=== PATIENT | female | born 2000 | race Caucasian/White ===

== ENCOUNTER 2020-01-14 10:00 | Outpatient (RCR) | payer OTHER, SELFPAY ==
--- NOTE | 2019-11-19 10:44 | PTOPEVAL ---
INITIAL PHYSICAL THERAPY EVALUATION and PLAN OF CARE Thank you for referring Deb Herbert to [facility].? Deb is scheduled to be seen for physical therapy? 2x/week for 4 weeks. Please review, sign, date and return this plan of care HALLEY. I agree with and certify that the following plan of care is medically necessary. Referring Physician Date Admitting Provider: Attending Provider: PHYSICIAN NOT ON STAFF Referring Provider: *PT Outpatient Evaluation Start: 11/19/19 09:12 Freq: Status: Active Protocol: Document 11/19/19 09:05 ERNIE (Rec: 11/19/19 10:44 ERNIE [email or web address]) Therapy Assessment Status Assessment Status Assessment Status Evaluation Outpatient Past Medical History Past Medical History No Past Medical/Surgical History Patient/Family Denies Significant Past Medical/ Surgical History Source of Past Medical History Patient Evaluation Information Problem Diagnosis pelvic pain, myofascial tenderness on exam Onset 1.5 - 2 yrs ago Subjective Information was on Depo shot for Query Text:As Reported By Patient/ control x 2 years, then when Family insurance didn't cover Depo shot - began to have discomfort which has continued . Previously - had a 4 year relationship - no discomfort, then when had a new partner - began to have pain. No difference in size of penis with partners. 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 Home , depo Meds Must Be Re-entered With Each Visit. Comments Additional Prior Level of Function recreation - sing, spend time Comments with nature Pain Assessment Timing of Pain Assessment Timing of Pain Assessment Assessment Pain Scale Pain S
--- NOTE | 2019-11-24 10:44 | PCPTNOTE ---
Pt. no show no call. Called Summer, she was very apologetic that she forgot. Reminded pt of appointment on Nov 30 at 9:45.
--- NOTE | 2019-12-08 16:11 | PCPTNOTE ---
late note for 12/01/19 pt was billed for but not documented for e-stim premod setting x 20 minutes in supine 2 pads to bilateral lower abdomen with HP and physio quieting tape. Decreased pain afterward.
--- NOTE | 2019-12-17 16:34 | PTOPEVAL ---
PHYSICAL THERAPY RE-EVALUATION and UPDATED PLAN OF CARE Thank you for referring Deb Herbert to [facility].? Deb is scheduled to be seen for physical therapy? 2x/week for 4 weeks. Please review, sign, date and return this plan of care HALLEY. I agree with and certify that the following plan of care is medically necessary. Referring Physician Date Admitting Provider: Attending Provider: PHYSICIAN NOT ON STAFF Referring Provider: *PT Outpatient Evaluation Start: 11/19/19 09:12 Freq: Status: Active Protocol: Document 12/17/19 11:09 ERNIE (Rec: 12/17/19 11:56 ERNIE [id number]) Therapy Assessment Status Assessment Status Assessment Status Re-evaluation Outpatient Past Medical History Past Medical History No Past Medical/Surgical History Patient/Family Denies Significant Past Medical/ Surgical History Source of Past Medical History Patient Evaluation Information Problem Subjective Information Deb reports that her Query Text:As Reported By Patient/ discomfort isn't that bad Family today. She states that using a tampon is still as painful - both insertion and penetration . She does feel that she is 30% improved. Pain Assessment Timing of Pain Assessment Timing of Pain Assessment Assessment Pain Scale Pain Scale Used Numeric (1 - 10) Self Report Pain Assessment Lower Pelvis Reported Pain Level 2 Lowest Pain Intensity 2 Greatest Pain Intensity 7 Pain Score Pain Score 2: Self Report Cervical and Lumbar ROM Lumbar ROM Lumbar ROM WNL Normal Lumbar Segmental Motion Yes Lumbar Comments symmetrical SIJ mobility Pelvic Health Evaluation Pelvic Floor Assessment Permission Received for External/ Yes Internal Perineal Exam Internal Perineal Body Palpation still some tenderness at introitus at 6 o'clock position. Tenderness present with levator ani - greatest on L side at 4-5 o'clock position. Increase in tenderness still present but greatly reduced on the L side, no increase in tissue tension R side. Sustained Levator Ani Strength 5/5 Pelvic Health Therapy Pelvic Health Manual Therapy Permission Received for External/ Yes Internal Perineal Exam Area of Focus lower abdominal. pevlic floor - internal and external Patient Position(s)
--- NOTE | 2020-01-14 10:56 | PTOPEVAL ---
PHYSICAL THERAPY DISCHARGE SUMMARY Thank you for referring Deb Herbert to [facility].? Deb was seen for 15 visits in PT for treatment of pelvic floor discomfort. She has met goals set with exception of outcome measures scores. Unsure why the scores were high when Deb reports no pelvic pain, able to insert and place tampon without discomfort, and able to perform work and household activities without pain. Her soft tissue tension has greatly decreased and not tender to palpation. She is at end point with PT at this time. I agree with Deb's discharge from PT. Referring Physician Date Admitting Provider: Attending Provider: PHYSICIAN NOT ON STAFF Referring Provider: *PT Outpatient Evaluation Start: 11/19/19 09:12 Freq: Status: Active Protocol: Document 01/14/20 10:11 ERNIE (Rec: 01/14/20 10:55 ERNIE [email or web address]) Therapy Assessment Status Assessment Status Assessment Status Discharge Evaluation Information Problem Subjective Information Deb stating that she is Query Text:As Reported By Patient/ feeling good - not having any Family pain. Did put a tampon in this morning - no pain with insertion or with fully pushing it up. Pain Assessment Timing of Pain Assessment Timing of Pain Assessment Assessment Pain Scale Pain Scale Used Numeric (1 - 10) Self Report Pain Assessment Lower Pelvis Reported Pain Level 0 Lowest Pain Intensity 0 Greatest Pain Intensity 0 Pain Score Pain Score 0: Self Report Pelvic Health Evaluation Pelvic Floor Assessment Permission Received for External/ Yes Internal Perineal Exam Internal Perineal Body Palpation no tenderness - good soft tissue mobility throughtout Additional Comments symmetrical pelvic, sacral, SIJ alignment and mobility, no increase in tissue tension through LE's or pelvic diaphragm externally. Pelvic Health Therapy Pelvic Health Manual Therapy Location levator ani, obturator internus Area of Focus pevlic floor - internal and external. Treatment Stillpoint at ankles, pelvic floor diaphragm release.. internally - mild soft tissue stretching done - no tenderness present Response to Treatment Increased Soft Tissue Mobility Endurance Excellent PT Clinical Summary Clinical Summary Protocol: PTEVCODE PT Clinical Summary Vulvar Pain Functional
== END 2020-01-15 12:26 | disposition home or self-care (01) ==
LOC: ANHPT 10:00
PROVIDERS: PCP Pediatrics
DX: R10.2 Pelvic and perineal pain (principal); M79.18 Myalgia, other site
CPT/HCPCS: 97014; 97140; 97162; G0283

== ENCOUNTER 2020-09-25 10:38 | Emergency (ER) | payer OTHER, SELFPAY ==
[2020-09-25 10:52] VITALS: BP 111/70; PULSE 83; RESP 16; TEMP 36.7; O2SAT 100
--- NOTE | 2020-09-25 10:53 | ED.SKABFB ---
HPI - Skin/Abscess/Foreign Bdy General Chief complaint: Skin/Abscess/Foreign Body Stated complaint: poison katy Source: patient and RN notes reviewed Limitations: no limitations History of Present Illness HPI narrative: The patient, previously mostly healthy, presents with skin eruption. Patient states she does yard and gardening work and has noticed for the last half week since Saturday, the onset of pink, raised eruption on her extremities especially the knees and hands. Symptoms are mild, worse with scratching; unrelieved with OTC preparations like calamine. No fever, streaking, discharge Related Data Home Medications Medication Instructions Recorded Confirmed Otc Vitamins 09/25/20 Allergies Allergy/AdvReac Type Severity Reaction Status Date / Time No Known Allergies Allergy Verified 09/25/20 10:56 Review of Systems Review of Systems: Narrative: General/Constitutional: No weight loss,fever Eyes: N0: Redness,discharge Ears/Nose/Throat: No: Epistaxis,ear discharge Respiratory: Denies: Hemoptysis Gastrointestinal: No Vomiting, Bleeding-rectal Skin: No Lumps, REPORTS eruption Neurologic: No Focal Weakness,Sz Hematologic: Denies: Petechiae/Purpura Psychiatric: No: Suicida ideationl All Other Systems: Reviewed and Negative PMFSH Social History Social History Smoking status: Never smoker Alcohol intake: never Comments At time of signature, agree with nursing past medical, surgical, social and family history. There is no relevant family history pertinent to the presenting complaint Exam Narrative: Exam Narrative: General Appearance: Well nourished, Normocephalic, Conjunctiva clear Ear: External ear normal Nose: Normal nose, Nare clear Mouth/Throat: Normal appearing, Supple Respiratory: Airway patent, No respiratory distress Musculoskeletal: Moves all extremities, Non tender Spine/Back: Normal ROM Skin: Warm, Dry classic maculo-papular & papulovesicular eruption, on extremities especially knees and hands Neurological: A&O x3, Normal affect Course Vital Signs Vital signs: Vital Signs Temperature 98.1 F 09/25/20 10:52 Pulse Rate 83 09/25/20 10:52 Respiratory Rate 09/25/20 10:52 Blood Pressure 111/70 09/25/20 10:52 Pulse Oximetry 100 09/25/20 10:52 Temperature 98.1 F 09/25/20 10:52 Pulse Rate 83 09/25/20 10:52 Respiratory Rate 16 09/25/20 10:52 Blood Pressure 111/70 09/25/20 10:52 Pulse Oximetry 100 09/25/20 10:52 Discharge Plan Discharge Clinical Impression: Contact dermatitis Qualifiers: Contact dermatitis type: irritant Contact dermatitis trigger: non-food plants Qualified Code(s): L24.7 - Irritant contact dermatitis due to plants, except food Patient Disposition: Home, Self-Care Condition: Stable Instructions: Poison Katy (ED) Prescriptions: New prednisone 20 mg tablet 60 mg PO DAILY Qty: 9 RF: 0 methylprednisolone [Medrol (Trent)] 4 mg tablets,dose pack See Rx Instructions .ROUTE .COMPLEX Qty: 21 RF: 0 No Action Otc Vitamins RF: 0 Follow-up/Referrals: UNKNOWN,DOCTOR [Primary Care Provider] - Stand Alone Forms: Work/School Release IP
== END 2020-09-25 11:03 | disposition home or self-care (01) ==
PROVIDERS: Emergency Provider Emergency Medicine
DX: L24.7 Irritant contact dermatitis due to plants, except food (principal); N80.9 Endometriosis, unspecified
CPT/HCPCS: 99213; G0463

== ENCOUNTER 2021-10-10 16:23 | Outpatient (CLI) | payer OTHER, MEDICAID, SELFPAY ==
[2021-10-10 17:20] LABS: Basophils Percent Auto 0.2 % (0.2-1.2); Eosinophils Absolute Auto 0.1 K/mm3 (0-0.3); Eosinophils Percent Auto 0.9 % (0-4.4); Hematocrit 35.7 % (37.0-47.0); Hemoglobin 12.4 g/dL (12.0-15.0); Immature Granulocyte Absolute 0.03 K/mm3 (0.00-0.031); Immature Granulocyte Percent A 0.3 % (0-0.5); Lymphocytes Absolute Auto 1.16 K/mm3 (0.9-3.2); Lymphocytes Percent Auto 11.8 % (18.3-44.2); Mean Corpuscular HGB Conc 34.7 g/dl (32-36); Mean Corpuscular Volume 92.2 fl (80-100); Mean Platelet Volume 10.6 fl (7.4-10.4); Monocytes Absolute Auto 0.7 K/mm3 (0.1-0.6); Monocytes Percent Auto 7.1 % (2.6-8.5); Neutrophils Absolute Auto 7.9 K/mm3 (1.3-6.7); Neutrophils Percent Auto 79.7 % (45.5-73.1); Platelet Count Result 187 k/mm3 (150-375); Red Blood Count 3.87 M/mm3 (4.2-5.4); Red Cell Distribution Width 12.3 % (11.5-14.5); White Blood Count 9.9 K/mm3 (4.5-10.0)
[2021-10-10 18:05] LABS: HIV 1/2 Ab P24 Ag Result Negative (Negative)
[2021-10-10 18:35] LABS: Hepatitis B Surface Antigen Negative (Negative)
[2021-10-11 09:22] LABS: Rapid Plasma Reagin Non-Reactive (NonReactive)
[2021-10-15 19:34] LABS: CMV IgG Antibody <0.60 U/mL (<0.60)
[2021-10-20 17:48] LABS: SMA 2.0 RISK VARIANT NOT DETECTED
[2021-10-25 18:17] LABS: CF Result NEGATIVE (NEGATIVE); Ethnicity NG
[2021-10-26 14:30] LABS: SMA Results Received Yes
== END 2021-10-10 16:24 | disposition home or self-care (01) ==
LOC: ANHLAB 16:25
PROVIDERS: Visit Provider Obstetrics & Gynecology
DX: N94.89 Other specified conditions associated with female genital organs and menstrual cycle (principal); N91.2 Amenorrhea, unspecified
CPT/HCPCS: 36415; 81220; 81329; 84702; 85025; 86592; 86644; 86703; 86747; 86787; 86900; 86901; 87086; 87088; 87147; 87340; G0432

== ENCOUNTER 2022-01-17 16:04 | Outpatient (CLI) | payer OTHER, MEDICAID, SELFPAY ==
[2022-01-17 16:24] VITALS: BP 125/74; PULSE 68
[2022-01-17 16:31] VITALS: BP 120/67; PULSE 66
[2022-01-17 16:46] LABS: Basophils Percent Auto 0.4 % (0.2-1.2); Eosinophils Absolute Auto 0.1 K/mm3 (0-0.3); Eosinophils Percent Auto 0.6 % (0-4.4); Hematocrit 35.3 % (37.0-47.0); Hemoglobin 11.8 g/dL (12.0-15.0); Immature Granulocyte Absolute 0.11 K/mm3 (0.00-0.031); Lymphocytes Absolute Auto 1.51 K/mm3 (0.9-3.2); Lymphocytes Percent Auto 14.3 % (18.3-44.2); Mean Corpuscular HGB Conc 33.4 g/dl (32-36); Mean Corpuscular Hemoglobin 32.2 pg (26-34); Mean Corpuscular Volume 96.2 fl (80-100); Mean Platelet Volume 9.8 fl (7.4-10.4); Monocytes Absolute Auto 0.6 K/mm3 (0.1-0.6); Monocytes Percent Auto 6.1 % (2.6-8.5); Neutrophils Absolute Auto 8.2 K/mm3 (1.3-6.7); Neutrophils Percent Auto 77.6 % (45.5-73.1); Platelet Count Result 170 k/mm3 (150-375); Red Blood Count 3.67 M/mm3 (4.2-5.4); Red Cell Distribution Width 12.4 % (11.5-14.5); White Blood Count 10.6 K/mm3 (4.5-10.0)
[2022-01-17 17:00] LABS: Alanine Aminotransferase 22 U/L (6-35); Albumin Level 3.6 g/dL (3.5-5.1); Alkaline Phosphatase 51 U/L (38-126); Anion Gap 9 mmol/L (8-16); Aspartate Amino Transferase 20 U/L (14-36); Bilirubin,Total 0.4 mg/dL (0.2-1.3); Blood Urea Nitrogen 9 mg/dL (7-17); Calcium 8.2 mg/dL (8.4-10.2); Carbon Dioxide 25 mmol/L (22-30); Chloride 101 mmol/L (98-107); Creatinine Urine 77.4 mg/dL; Estimated Glomerular Filt Rate > 60; Glucose 85 mg/dL (65-110); Potassium 3.8 mmol/L (3.4-5.0); Sodium 135 mmol/L (137-145); Total Protein Urine Random 8 mg/dL
[2022-01-17] MEDS: ONDANSETRON HCL ODT 4 MG TABLET PO (17:04)
[2022-01-17 17:07] LABS: Add Urine Microscopic? YES; Appearance Urine Cloudy (Clear); Bacteria Urine Trace /hpf; Bilirubin Urine Negative (Negative); Blood Urine Negative (Negative); Color Urine Yellow (Yellow); Glucose Urine UA Negative (Negative); Ketones Urine 1+ mg/dL (Negative); Leukocyte Esterase Ur Negative LEU/UL (NEGATIVE); Mucus Urine Rare /lpf; Nitrate Urine Negative (Negative); Protein Urine Negative (Negative); RBC Urine 0-2 /hpf (0-2); Specific Grav Ur 1.016 (1.001-1.035); Squamous Epithelial Cell Urine Few /hpf (Few); Urobilinogen Urine Negative mg/dL (<2.0); WBC Urine 0-3 /hpf (0-3)
[2022-01-17] MEDS: ACETAMINOPHEN 325 MG TABLET 650 MG PO (17:29)
[2022-01-17 17:39] VITALS: BP 125/74; PULSE 75
== END 2022-01-17 17:40 | disposition home or self-care (01) ==
LOC: ANHOBOP 16:11 → ANHOBPP 16:12
PROVIDERS: Visit Provider Obstetrics & Gynecology
DX: Z34.90 Encounter for supervision of normal pregnancy, unspecified, unspecified trimester (principal); R51.9 Headache, unspecified; R11.0 Nausea; Z3A.00 Weeks of gestation of pregnancy not specified
CPT/HCPCS: 36415; 59025; 80053; 81001; 82570; 84156; 84550; 85025; 87086; 99199; A9270

== ENCOUNTER 2022-02-01 12:06 | Outpatient (CLI) | payer OTHER, MEDICAID, SELFPAY ==
[2022-02-01 14:04] LABS: Basophils Percent Auto 0.3 % (0.2-1.2); Eosinophils Absolute Auto 0.1 K/mm3 (0-0.3); Eosinophils Percent Auto 0.9 % (0-4.4); Hematocrit 34.3 % (37.0-47.0); Hemoglobin 11.7 g/dL (12.0-15.0); Immature Granulocyte Absolute 0.09 K/mm3 (0.00-0.031); Lymphocytes Absolute Auto 1.82 K/mm3 (0.9-3.2); Lymphocytes Percent Auto 20.3 % (18.3-44.2); Mean Corpuscular HGB Conc 34.1 g/dl (32-36); Mean Corpuscular Hemoglobin 31.7 pg (26-34); Monocytes Absolute Auto 0.6 K/mm3 (0.1-0.6); Monocytes Percent Auto 6.6 % (2.6-8.5); Neutrophils Absolute Auto 6.3 K/mm3 (1.3-6.7); Neutrophils Percent Auto 70.9 % (45.5-73.1); Platelet Count Result 174 k/mm3 (150-375); Red Blood Count 3.69 M/mm3 (4.2-5.4); Red Cell Distribution Width 12.7 % (11.5-14.5)
[2022-02-01 14:12] LABS: Glucose 1 Hour PP 50gm Dose 102 mg/dL
[2022-02-01 14:54] LABS: HIV 1/2 Ab P24 Ag Result Negative (Negative)
== END 2022-02-01 12:07 | disposition home or self-care (01) ==
LOC: ANHLAB 12:12
PROVIDERS: Visit Provider Obstetrics & Gynecology
DX: Z34.90 Encounter for supervision of normal pregnancy, unspecified, unspecified trimester (principal); Z3A.00 Weeks of gestation of pregnancy not specified
CPT/HCPCS: 36415; 82947; 85025; 86703; G0432

== ENCOUNTER 2022-03-30 19:16 | Outpatient (CLI) | payer OTHER, SELFPAY ==
--- NOTE | ~2022-03-30 | US_ITS ---
EXAMINATION: US OB limited w BPP DATE: 03/30/2022 20:57 EVENT REPRESENTATIVE INDICATION: Decreased movements TECHNIQUE: Real-time transabdominal obstetric ultrasound. FINDINGS: No prior studies for comparison. There is a single living fetus in vertex presentation. The placenta is anterior without placenta pre via. cardiac activity and movement is noted with a heart rate of 129 beats per minute. A FI is normal measuring 13.7 cm. Biophysical profile: breathin of 2 movement: 2 of 2 tone: 2 of 2 Amniotic flud pocket: 2 of 2 Total score: 8 of 8 IMPRESSION: 1. Single living intrauterine in vertex presentation. 2: Total biophysical profile score of 8/8. 3: Normal GISELL measures 13.7 cm. Reviewed, dictated and finalized at location A. T REPRESENTATIVE
[2022-03-30 19:26] VITALS: PULSE 98; O2SAT 98
[2022-03-30 19:30] VITALS: BP 126/64; PULSE 87
--- NOTE | 2022-03-30 19:51 | PM.OBTRLD ---
OB - Triage/Final Diagnosis Visit Information Date of evaluation: 03/30/22 Reason for evaluation: decreased movement Comments/Additional reasons for admission: I have assessed the risk for this patient, Deb Herbert, and determined that she would benefit from observation care. Evaluation Vital signs: Vital Signs - 24 hr 03/30/22 19:26 03/30/22 19:30 Pulse Rate 87 Blood Pressure 126/64 Pulse Oximetry 98
== END 2022-03-30 21:00 | disposition home or self-care (01) ==
LOC: ANHOBOP 19:21 → ANHLDR 19:21
PROVIDERS: Visit Provider Obstetrics & Gynecology
DX: O36.8190 Decreased fetal movements, unspecified trimester, not applicable or unspecified (principal); Z3A.00 Weeks of gestation of pregnancy not specified
CPT/HCPCS: 76815; 76819; 99199

== ENCOUNTER 2022-04-04 17:04 | Inpatient (IN) | payer BC, OTHER, SELFPAY ==
[2022-04-04] VITALS (14 sets, daily range): BP systolic 84–126; BP diastolic 40–84; PULSE 72–153; BMI 39.1
--- NOTE | 2022-04-04 17:24 | LDADM ---
This patient, Deb Herbert, was admitted to Labor/Delivery/Recovery 109 on 04/04/22 at 17:04. Plans for labor, pain management and were discussed with patient. Patient/family oriented to hospital policies and general routines including ID bracelet, bed and alarms, visiting hours, pain management, procedures, bathroom and other care routines, personal items, smoking policy, room service/diet and guest tray routines, security routines, and visiting hours. Patient/Family are encouraged to report perceived risks to care and to ask questions if they do not understand what they are told or what they should do. See OBIX for further documentation.
[2022-04-04] MEDS: DINOPROSTONE 10 MG VAG INSERT VAGINAL (17:41)
[2022-04-04 18:02] LABS: Basophils Percent Auto 0.4 % (0.2-1.2); Eosinophils Absolute Auto 0.1 K/mm3 (0-0.3); Eosinophils Percent Auto 0.6 % (0-4.4); Hematocrit 36.7 % (37.0-47.0); Hemoglobin 12.6 g/dL (12.0-15.0); Immature Granulocyte Absolute 0.13 K/mm3 (0.00-0.031); Immature Granulocyte Percent A 1.2 % (0-0.5); Lymphocytes Absolute Auto 1.85 K/mm3 (0.9-3.2); Lymphocytes Percent Auto 16.9 % (18.3-44.2); Mean Corpuscular HGB Conc 34.3 g/dl (32-36); Mean Corpuscular Hemoglobin 30.7 pg (26-34); Mean Corpuscular Volume 89.5 fl (80-100); Mean Platelet Volume 10.1 fl (7.4-10.4); Monocytes Absolute Auto 0.9 K/mm3 (0.1-0.6); Monocytes Percent Auto 7.8 % (2.6-8.5); Neutrophils Percent Auto 73.1 % (45.5-73.1); Platelet Count Result 213 k/mm3 (150-375); Red Cell Distribution Width 12.8 % (11.5-14.5); White Blood Count 10.9 K/mm3 (4.5-10.0)
--- NOTE | 2022-04-04 18:12 | WPDANESEPP ---
Anes - Eval Pre Procedure Procedure: Labor epidural Date/Time: 04/04/22 18:12 Pre Op Diagnosis: iol Patient Data Age: 21 Gender: F Height: 1.57 m Weight: 97 kg Last Vital Signs Pulse 84 04/04/22 18:00 BP 108/58 L 04/04/22 18:00 O2 Del Method Room Air 04/04/22 17:23 Allergies Allergy/AdvReac Type Severity Reaction Status Date / Time poison preethi extract Allergy Hives Verified 04/04/22 08:08 Home Medications Medication Instructions Recorded Confirmed Type vitamins-iron fumarate 65 1 tablet PO DAILY 09/05/21 04/04/22 History mg iron-folic acid 1 mg tablet hydrocortisone 2.5 % topical cream 1 applic RECTAL DAILY PRN 11/09/21 04/04/22 Rx with perineal applicator hemorrhoids #30 grams (Anusol-HC) hydroxyzine pamoate 50 mg capsule 100 mg PO TID PRN anxiety #90 caps 03/28/22 04/04/22 Rx (Vistaril) Laboratory Tests 04/04/22 04/04/22 04/04/22 17:16 17:16 17:16 WBC 10.9 K/mm3 H K/mm3 (4.5-10.0) RBC 4.10 M/mm3 L M/mm3 (4.2-5.4) Hgb 12.6 g/dL g/dL (12.0-15.0) Hct 36.7 % L % (37.0-47.0) MCV 89.5 fl fl (80-100) MCH 30.7 pg pg (26-34) MCHC 34.3 g/dl g/dl (32-36) RDW 12.8 % % (11.5-14.5) Plt Count 213 k/mm3 k/mm3 (150-375) MPV 10.1 fl fl (7.4-10.4) Immature Gran % (Auto) 1.2 % H % (0-0.5) Neut % (Auto) 73.1 % % (45.5-73.1) Lymph % (Auto) 16.9 % L % (18.3-44.2) [place] % (Auto) 7.8 % % (2.6-8.5) Eos % (Auto) 0.6 % % (0-4.4) Baso % (Auto) 0.4 % % (0.2-1.2) Lymph # (Auto) 1.85 K/mm3 K/mm3 (0.9-3.2) [place] # (Auto) 0.9 K/mm3 H K/mm3 (0.1-0.6) Eos # (Auto) 0.1 K/mm3 K/mm3 (0-0.3) Baso # (Auto) 0.0 K/mm3 K/mm3 (0.0-0.1) Abs Immat Gran (auto) 0.13 K/mm3 H K/mm3 (0.00-0.031) Absolute Neuts (auto) 8.0 K/mm3 H K/mm3 (1.3-6.7) Absolute Nucleated RBC 0.0 K/mm3 K/mm3 (0.0-0.012) Nucleated RBC % 0.0 % % (0.0-0.2) RPR Pending Rubella IgG Antibody Pending Patient hx anesthesia problems: none Family hx anesthesia problems: none Results Review: All pre-operative results and documents have been reviewed as part of the pre-operative evaluation. [facility] Past Medical History Medical History Anxiety Chlamydia (12/17/16) Encounter for screening examination for sexually transmitted disease Frequent headaches Hypoglycemia Pre-eclampsia added to pre-existing hypertension Suppression of menstruation Vaginal discharge Surgical History Surgical History H/O breast augmentation (05/02/21) History of oral surgery (~2012) History of repair of hiatal hernia (~2001) Family History Family History Grandparent Malignant tumor of urinary bladder maternal grandmother Mother Malignant tumor of cervix Social History Social History Smoking status: Never smoker Alcohol intake: never Substance use: never Substance use type: marijuana Last use: 07/2021 Lack of Transportation: No Lack of Food: Never True Current Housing: I Have Housing Concerned About Future Housing: No Difficulty Paying Gas/Electric Bills: No Difficulty Paying for Meds: No Currently Unemployed: No Education: High School Diploma/GED Difficulty w/ Childcare or Family Care: No Additional living arrangements comments: single 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
[2022-04-04 19:30] LABS: Rubella IgG Antibody 63.3 IU/ML
[2022-04-05] VITALS (188 sets, daily range): BP systolic 82–148; BP diastolic 40–125; PULSE 59–232; TEMP 36.6–37.2; O2SAT 94–100
[2022-04-05] MEDS: AMPICILLIN 2 GM/NS 100 ML 2 GM/100 ML BAG IVPB (00:07)
[2022-04-05] MEDS: LACTATED RINGERS 1,000 ML 125 ML IV CONT ×4 (00:07→14:36)
[2022-04-05] MEDS: fentaNYL CITRATE INJ (*CRX) 100 MCG/2 ML VIAL 50 MCG IV PUSH ×4 (00:27→10:02)
[2022-04-05] MEDS: fentaNYL CITRATE INJ (*CRX) 100 MCG/2 ML VIAL IV PUSH (03:18)
[2022-04-05] MEDS: AMPICILLIN 1 GM/NS 50 ML 1 GM/50 ML BAG IVPB ×4 (04:32→16:24)
[2022-04-05] MEDS: OXYTOCIN 30 UNITS/NS 500 ML 30 UNITS/500 ML BAG 6 UNITS IV CONT (07:19)
[2022-04-05] MEDS: ONDANSETRON INJ 4 MG/2 ML VIAL IV PUSH ×2 (08:45→15:33)
[2022-04-05 10:41] LABS: Rapid Plasma Reagin Non-Reactive (NonReactive)
[2022-04-05] MEDS: FAMOTIDINE 20 MG/2 ML VIAL IV PUSH (16:25)
--- NOTE | 2022-04-05 21:46 | P.PCNOB_ITS ---
OB - Delivery Note Procedure Induction method: Per Cervidil Protocol Delivery augmentation: Rupture of Membranes and Pitocin Delivery monitor: External FHT and Internal Uterine Route of delivery: Episiotomy description: None Laceration Description: Vaginal Delivery repair: chromic Specimen: No Quantitative Blood Loss (ml): 300 Anesthesia type: Epidural Disposition: Floor Complications: none Narrative: Patient prepped draped usual manner for this procedure. Maternal expulsive efforts readily delivered vertex in the rest baby was delivered as well. Nuchal cord was noted and delivered through. Cord clamped and cut placenta delivered spontaneously. Cervix vagina vulva were inspected with vaginal wall laceration noted and repaired using 2-0 chromic in running interlocking manner w ith good hemostasis and approximation of tissue. At this point the procedure was considered terminated, uterus well contracted with minimal bleeding. Baby Weeks of gestation at delivery: 39 gender: Male Weight (pounds): 7 Weight (ounces): 10 presentation: vertex Placenta delivery description: Spontaneous Cord Vessel Description: 3 Vessels, Nuchal Cord and Delayed Cord Clamping score one minute: 9 score five minutes: 9 AMG Delivery Billing Delivery Delivery: Delivery Charge
--- NOTE | 2022-04-05 21:46 | WPDHPUPDATE1 ---
History and Physical Update Update Date/Time: 04/05/22 21:46 History and Physical has been reviewed, including an updated exam of the patient. There are NO changes in the patient's condition. Risks, benefits, and alternatives have been discussed and questions answered. Patient agrees to proceed with procedure.
--- NOTE | 2022-04-05 21:46 | WPDOBADMIT ---
Obstetrics - Admit Note Admission Note: record reviewed. No pertinent additions to the history and/or any subsequent changes in the physical findings that are not consistent with the expected course of the were found. Additions to the history and/or subsequent changes in the physical findings follow. None.
[2022-04-05] MEDS: OXYTOCIN 30 UNITS/NS 500 ML 30 UNITS/500 ML BAG 125 UNITS IV CONT (22:05)
--- NOTE | 2022-04-06 00:10 | PC.NURSE ---
Patient transferred to post room #292 per wheelchair from labor and delivery. Support person present. Oriented to unit, room, information board, rooming in, admission packet and security measures. Patient verbalizes understanding.
[2022-04-06 00:30] VITALS: BP 94/57; PULSE 89; RESP 20; TEMP 36.7
[2022-04-06 04:30] VITALS: BP 113/59; PULSE 84; RESP 18; TEMP 37
[2022-04-06] MEDS: IBUPROFEN 600 MG TABLET PO ×2 (04:48→11:43)
[2022-04-06 05:40] LABS: Hematocrit 32.6 % (37.0-47.0)
[2022-04-06 07:40] VITALS: BP 110/53; PULSE 87; RESP 16; TEMP 37; O2SAT 100
--- NOTE | 2022-04-06 08:30 | WPDANLDPN2 ---
Anes-Prog Note L&D Date/Time: 04/06/22 08:30 Comfortable throughout: labor and delivery Epidural/Spinal procedure site: clean & non-tender Neuro status: Neuro function grossly intact. Cardiovascular status: normal Respiratory status: normal Airway patency: baseline Mental status: baseline Post-Op hydration status: normal Vital Signs: Last Vital Signs Temp 37.0 C 04/06/22 04:30 Pulse 84 04/06/22 04:30 Resp 18 04/06/22 04:30 BP 113/59 L 04/06/22 04:30 Pulse Ox 99 04/05/22 22:03 O2 Del Method Room Air 04/04/22 17:23 Pain score (VAS): 0 I/O: Intake & Output 04/05/22 04/06/22 04/06/22 23:59 07:59 15:59 Intake Total 500 Output Total 300 Balance -300 500 Post-procedural complaints: none Patient feedback: Patient satisfied with anesthetic care.
[2022-04-06] MEDS: TETANUS,DIPHTHERIA,AC PERTUSSIS ADULT (0.5 ML) BOOSTRIX IM (11:45)
[2022-04-06] MEDS: DOCUSATE SODIUM 100 MG CAPSULE PO ×2 (11:45→18:10)
[2022-04-06] MEDS: MULTIVIT/MIN/PREN/FOL AC/IRON TABLET 1 TAB PO (11:45)
--- NOTE | 2022-04-06 13:33 | P.DS_ITS ---
DS: Admitting Diagnosis Discharge Date 04/07/2022 Admitting Diagnosis OB - DS: Summary OB Procedures : None OB Procedures Intrapartum: Spontaneous Vag Delivery OB Procedures: : None Time Spent with Patient Time attestation: Total time spent providing and/or coordinating discharge services: DS: Data Data Completed and Pending Labs on day of discharge: Labs from last 24 hours 04/06/22 04:32 Hgb 11.0 L Hct 32.6 L Discharge Plan Discharge Discharging Clinician: Rod Mahan Patient Disposition: Home, Self-Care Activity: as tolerated Diet: as tolerated Patient Instructions: Antibiotic Form Stand Alone Forms: General Discharge Information Follow-up/Referrals: Rod Mahan MD [Physician] - 3 Weeks Discharge Medications: New ibuprofen 600 mg Tablet 600 mg PO Q6H PRN (Reason: Cramping) Qty: 30 0RF Continued hydrocortisone [Anusol-HC] 2.5 % cream with perineal applicator 1 applic RECTAL DAILY PRN (Reason: hemorrhoids) Qty: 30 0RF vit-iron fum-folic ac 65 mg iron- 1 mg tablet 1 tablet PO DAILY hydroxyzine pamoate [Vistaril] 50 mg capsule 100 mg PO TID PRN (Reason: anxiety) Qty: 90 3RF Date of admission: 04/04/22 17:04 Primary Care Provider: PHYSICIAN,QUALITY CONTROL TESTER Admitting Provider: Rod Mahan Attending physician on admission: Rod Mahan Condition: Stable
--- NOTE | 2022-04-06 14:45 | PC.NURSE ---
[id number] Introductions were made, then consulted with patient to assess needs related to . Mother led the conversation with her?plans to feed?her infant and the?experience so far using a nipple shield. Resources provided for inpatient and outpatient services with mom/baby guide. Mother voiced understanding of information and requests assistance. Suggested stimulating infant for waking, stimulating nipples to firm, encouragement given to position in good alignment with ear, shoulder and hip. Nipple to nose bringing the chin towards the breast first with infant having a big, open, wide gape. Infant latched optimally to the left breast using cross cradle without the nipple shield. Infant had appropriate suck/swallowing and mother denies pain. At times infant attempts to detach and re-latch with a shallow latch. Mother was encourage to assess for optimal latching each time to protect the nipples from injury. After effectively breastfed there was no nipple misshaped visualized. was placed skin to skin and mother was encouraged to use massage touch, changing positions and talking to encourage infant to wake. Once feeding cues were observed infant was led to the right breast using the football positioning. Infant latched well without a nipple shield once mother stimulated her nipples, with appropriate suck/swallow ratios and mother denied pain. Discussed with mother the risks and benefits of using a nipple shield and if there is continued use, then initiate pumping. Reviewed the risks and benefits with pumping. Mother works well with her with encouragement and education. Encouraged understanding of the benefits of skin to skin (demonstrating unwrapping and placing upright on her chest), stimulating with massage touch, changing positions to encourage wakefulness, how to watch for early feeding cues, responsive feeding, feeding on demand (aiming for 8-12 times in 24 hours, about every 2-3 hours), milk production, building/maintaining a milk supply, duration of feeding, signs of adequate intake/output and how to record on the feeding sheet. Reviewed positioning and ear, shoulder, hip alignment, supporting the breast to facilitate a deep latch, asymmetrical latch (off-center), leading with the chin with a big, open, wide gape and body close to mother. Resources used to facilitate learning were used with the tool, mom and baby guide. Mother voiced understanding of skin to skin, stimulating with massage touch, responsive feedings, hand expressed colostrum, talking to infant to encourage if it has been 2 -2.5 hours since the start of the last , to call if does not latch, or if there is discomfort with . Resources provided for inpatient/outpatient with the mom/baby guide. Mother voiced understanding of information, demonstrated learning and will call if there is a request for assistance. Reported to the primary RN.
[2022-04-06 15:09] VITALS: BP 100/61; PULSE 76; RESP 16; TEMP 36.8; O2SAT 100
[2022-04-06 21:07] VITALS: BP 114/68; PULSE 85; RESP 16; TEMP 37.1; O2SAT 99
[2022-04-07] MEDS: IBUPROFEN 600 MG TABLET PO ×2 (01:07→09:19)
[2022-04-07] MEDS: HYDROcodone/acetaminophen (*CRX) 5-325 MG TABLET 1 TAB PO (01:08)
[2022-04-07 09:15] VITALS: BP 101/59; PULSE 69; RESP 18; TEMP 37.6
[2022-04-07] MEDS: MULTIVIT/MIN/PREN/FOL AC/IRON TABLET 1 TAB PO (09:19)
[2022-04-07] MEDS: DOCUSATE SODIUM 100 MG CAPSULE PO (09:19)
[2022-04-09 09:41] VITALS: BP 120/74; PULSE 63; RESP 16; TEMP 37; O2SAT 99
== END 2022-04-07 12:50 | disposition home or self-care (01) | DRG 807 ==
LOC: ANHLDR 04-05 11:35 → ANHOB2 04-06 00:15
PROVIDERS: Admitting Provider Obstetrics & Gynecology; Visit Provider Obstetrics & Gynecology
DX: O99.824 Streptococcus B carrier state complicating childbirth (principal); Z37.0 Single live birth; Z3A.39 39 weeks gestation of pregnancy; O36.8330 Maternal care for abnormalities of the fetal heart rate or rhythm, third trimester, not applicable or unspecified; O71.4 Obstetric high vaginal laceration alone; O69.81X0 Labor and delivery complicated by cord around neck, without compression, not applicable or unspecified; Z23 Encounter for immunization
CPT/HCPCS: 36415; 85014; 85018; 85025; 86592; 86762; 86850; 86900; 86901; 90471; 90686; 90715; A9270; G0008; J0290; J2405; J2590; J2795; J3010; J7120

== ENCOUNTER 2023-02-07 12:58 | Outpatient (CLI) | payer BC, MEDICAID, SELFPAY ==
[2023-02-07 14:25] LABS: Glucose 1 Hour PP 50gm Dose 75 mg/dL
[2023-02-07 15:27] LABS: Hemoglobin A1C 4.2 % (<5.7)
== END 2023-02-07 12:59 | disposition home or self-care (01) ==
LOC: ANHLAB 13:01
PROVIDERS: Visit Provider Obstetrics & Gynecology
DX: N94.89 Other specified conditions associated with female genital organs and menstrual cycle (principal); O26.00 Excessive weight gain in pregnancy, unspecified trimester; Z3A.00 Weeks of gestation of pregnancy not specified
CPT/HCPCS: 36415; 82947; 83036; 86787

== ENCOUNTER 2023-02-13 10:47 | Outpatient (RCR) | payer BC, MEDICAID, SELFPAY ==
[2023-02-13 10:56] VITALS: BMI 31.1
== END 2023-04-29 08:59 | disposition home or self-care (01) ==
LOC: ANHDMC 10:47
PROVIDERS: Visit Provider Obstetrics & Gynecology
DX: O26.00 Excessive weight gain in pregnancy, unspecified trimester (principal); Z3A.00 Weeks of gestation of pregnancy not specified; Z71.3 Dietary counseling and surveillance
CPT/HCPCS: 97802

== ENCOUNTER 2023-05-13 13:30 | Outpatient (CLI) | payer BC, MEDICAID, SELFPAY ==
[2023-05-13 15:01] LABS: Basophils Percent Auto 0.4 % (0.2-1.2); Eosinophils Percent Auto 0.4 % (0-4.4); Hematocrit 36.1 % (37.0-47.0); Hemoglobin 11.7 g/dL (12.0-15.0); Immature Granulocyte Absolute 0.06 K/mm3 (0.00-0.031); Immature Granulocyte Percent A 0.7 % (0-0.5); Lymphocytes Absolute Auto 1.23 K/mm3 (0.9-3.2); Lymphocytes Percent Auto 15.1 % (18.3-44.2); Mean Corpuscular HGB Conc 32.4 g/dl (32-36); Mean Corpuscular Hemoglobin 32.1 pg (26-34); Mean Corpuscular Volume 99.2 fl (80-100); Mean Platelet Volume 9.9 fl (7.4-10.4); Monocytes Absolute Auto 0.5 K/mm3 (0.1-0.6); Monocytes Percent Auto 6.2 % (2.6-8.5); Neutrophils Absolute Auto 6.3 K/mm3 (1.3-6.7); Neutrophils Percent Auto 77.2 % (45.5-73.1); Platelet Count Result 163 k/mm3 (150-375); Red Blood Count 3.64 M/mm3 (4.2-5.4); Red Cell Distribution Width 14.1 % (11.5-14.5); White Blood Count 8.1 K/mm3 (4.5-10.0)
[2023-05-13 15:11] LABS: Glucose 1 Hour PP 50gm Dose 89 mg/dL
[2023-05-13 15:57] LABS: HIV 1/2 Ab P24 Ag Result Negative (Negative)
== END 2023-05-13 13:31 | disposition home or self-care (01) ==
PROVIDERS: Visit Provider Obstetrics & Gynecology
DX: Z34.90 Encounter for supervision of normal pregnancy, unspecified, unspecified trimester (principal); Z3A.00 Weeks of gestation of pregnancy not specified
CPT/HCPCS: 36415; 82947; 85025; 86703; G0432

== ENCOUNTER 2023-07-24 11:29 | Outpatient (CLI) | payer BC, MEDICAID, SELFPAY ==
--- NOTE | ~2023-07-24 | US_ITS ---
EXAMINATION: US OB follow up DATE: 07/24/2023 11:51 INDICATION: Encounter for supervision of normal . TECHNIQUE: Real-time ultrasound of the pelvis was performed. COMPARISON: Ultrasound 06/26/2023, 12/12/2022 FINDINGS: There is a single living fetus in vertex presentation. The placenta is anterior. heart rate is 157 beats per minute (bpm). The amniotic fluid index is 10.9 cm, which is normal. The cervical lengt h is 2.2 cm on transabdominal images. The following biometric data were obtained: Biparietal diameter (BPD): 9.7 cm; head circumference (HC): 35.1 cm; abdominal circumference (AC): 38 .3 cm; femur length (FL): 7.5 cm. These measurements are discordant with low FL/AC ratio. Estimated weight is 4261 g +/- 639 g, which correlates with the 97th percentile when 07/30/23 is used as estimated date of delivery. As single measurements, these parameters are each equal to the following estimated gestational ages: BPD: 39 weeks 3 days. HC: 40 weeks 6 days. AC: Out of range. FL: 38 weeks 2 days. estimated gestational age based solely on measurements from this exam is 39 weeks 4 days +/- 2 weeks 5 days. IMPRESSION: 1. Single living fetus in vertex presentation. 2. Large for gestational age. Estimated weight is 4261 g +/- 639 g, which correlates with the 97th percentile when 07/30/23 is used as estimated date of delivery. 3. Short cervix. Reviewed, dictated and finalized at location A. IMPRESSION: 1. Single living fetus in vertex presentation. 2. Large for gestational age. Estimated weight is 4261 g +/- 639 g, whic h correlates with the 97th percentile when 07/30/23 is used as estimated date of delivery. 3. Short cervix.
== END 2023-07-24 11:30 ==
PROVIDERS: PCP Obstetrics & Gynecology; Visit Provider Obstetrics & Gynecology
DX: Z34.93 Encounter for supervision of normal pregnancy, unspecified, third trimester (principal); Z3A.39 39 weeks gestation of pregnancy
CPT/HCPCS: 76816

== ENCOUNTER 2023-07-25 16:02 | Inpatient (IN) | payer BC, MEDICAID, SELFPAY ==
[2023-07-25] VITALS (7 sets, daily range): BP systolic 96–120; BP diastolic 53–79; PULSE 72–89; TEMP 36.8; BMI 36.6
[2023-07-25 16:58] LABS: Basophils Percent Auto 0.4 % (0.2-1.2); Eosinophils Absolute Auto 0.1 K/mm3 (0-0.3); Eosinophils Percent Auto 0.7 % (0-4.4); Hematocrit 36.7 % (37.0-47.0); Hemoglobin 12.6 g/dL (12.0-15.0); Immature Granulocyte Absolute 0.11 K/mm3 (0.00-0.031); Lymphocytes Absolute Auto 1.93 K/mm3 (0.9-3.2); Lymphocytes Percent Auto 18.3 % (18.3-44.2); Mean Corpuscular HGB Conc 34.3 g/dl (32-36); Mean Corpuscular Hemoglobin 32.4 pg (26-34); Mean Corpuscular Volume 94.3 fl (80-100); Mean Platelet Volume 10.2 fl (7.4-10.4); Monocytes Absolute Auto 0.8 K/mm3 (0.1-0.6); Monocytes Percent Auto 7.1 % (2.6-8.5); Neutrophils Absolute Auto 7.6 K/mm3 (1.3-6.7); Neutrophils Percent Auto 72.5 % (45.5-73.1); Platelet Count Result 191 k/mm3 (150-375); Red Blood Count 3.89 M/mm3 (4.2-5.4); Red Cell Distribution Width 13.4 % (11.5-14.5); White Blood Count 10.5 K/mm3 (4.5-10.0)
--- NOTE | 2023-07-25 17:24 | WPDANESEPP ---
Anes - Eval Pre Procedure Procedure: Labor epidural Date/Time: 07/25/23 17:24 Surgeon: Negrito Preop Diagnosis: Abdominal pain with contractions Pre Op Diagnosis: IOL Patient Data Age: 22 Gender: F Height: Weight: Allergies Allergy/AdvReac Type Severity Reaction Status Date / Time hydroxyzine Allergy Intermediate Itching Verified 07/24/23 10:31 poison preethi extract Allergy Hives Verified 07/24/23 10:31 Home Medications Medication Instructions Recorded Confirmed Type No Home Medications 07/03/23 07/24/23 History Laboratory Tests 07/25/23 16:48 WBC 10.5 H K/mm3 (4.5-10.0) RBC 3.89 L M/mm3 (4.2-5.4) Hgb 12.6 g/dL (12.0-15.0) Hct 36.7 L % (37.0-47.0) MCV 94.3 fl (80-100) MCH 32.4 pg (26-34) MCHC 34.3 g/dl (32-36) RDW 13.4 % (11.5-14.5) Plt Count 191 k/mm3 (150-375) MPV 10.2 fl (7.4-10.4) Immature Gran % (Auto) 1.0 H % (0-0.5) Neut % (Auto) 72.5 % (45.5-73.1) Lymph % (Auto) 18.3 % (18.3-44.2) Wilkin % (Auto) 7.1 % (2.6-8.5) Eos % (Auto) 0.7 % (0-4.4) Baso % (Auto) 0.4 % (0.2-1.2) Lymph # (Auto) 1.93 K/mm3 (0.9-3.2) Wilkin # (Auto) 0.8 H K/mm3 (0.1-0.6) Eos # (Auto) 0.1 K/mm3 (0-0.3) Baso # (Auto) 0.0 K/mm3 (0.0-0.1) Abs Immat Gran (auto) 0.11 H K/mm3 (0.00-0.031) Absolute Neuts (auto) 7.6 H K/mm3 (1.3-6.7) Absolute Nucleated RBC 0.000 K/mm3 (0.0-0.012) Nucleated RBC % 0.0 % (0.0-0.2) RPR Pending : gestational age HCG: positive Patient hx anesthesia problems: none Family hx anesthesia problems: none Results Review: All pre-operative results and documents have been reviewed as part of the pre-operative evaluation. [facility] Past Medical History Medical History (Updated 07/25/23 @ 17:26 by Ramin Le Jr., CRNA) Anxiety Chlamydia (12/17/16) Encounter for screening examination for sexually transmitted disease Frequent headaches Gestational diabetes Hypoglycemia Irregular periods Morbid obesity Pre-eclampsia added to pre-existing hypertension Suppression of menstruation Vaginal discharge Surgical History Surgical History H/O breast augmentation (05/02/21) History of oral surgery (~2012) History of repair of hiatal hernia (~2001) Family History Family History Grandparent Malignant tumor of urinary bladder maternal grandmother Mother Malignant tumor of cervix Social History Social History Smoking status: Never smoker Alcohol intake: never Substance use: current Substance use type: marijuana Other substance usage details: for stress Last use: 12/01/2022 Lack of Transportation: No Lack of Food: Never True Current Housing: I Have Housing Concerned About Future Housing: No Difficulty Paying Gas/Electric Bills: No Difficulty Paying for Meds: No Currently Unemployed: No Education: High School Diploma/GED Difficulty w/ Childcare or Family Care: No Living arrangements: other Additional living arrangements comments: single Occupation/Education: occupation 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
[2023-07-25] MEDS: DINOPROSTONE 10 MG VAG INSERT VAGINAL (17:35)
[2023-07-25] MEDS: LACTATED RINGERS 1,000 ML 125 ML IV CONT (19:04)
[2023-07-25] MEDS: AMPICILLIN 2 GM/NS 100 ML 2 GM/100 ML BAG IVPB (19:05)
[2023-07-25] MEDS: CALCIUM CARBONATE (TUMS) 500 MG (200 MG ELEMENTAL) PO (19:36)
[2023-07-25 21:02] LABS: Rapid Plasma Reagin Non-Reactive (NonReactive)
[2023-07-25] MEDS: AMPICILLIN 1 GM/NS 50 ML 1 GM/50 ML BAG IVPB (23:00)
[2023-07-25] MEDS: fentaNYL CITRATE INJ (*CRX) 100 MCG/2 ML VIAL 50 MCG IV PUSH (23:06)
[2023-07-26] VITALS (70 sets, daily range): BP systolic 78–130; BP diastolic 40–99; PULSE 63–138; RESP 18–20; TEMP 36.4–37.3; O2SAT 92–100
[2023-07-26] MEDS: diphenhydrAMINE HCl CAP 25 MG CAPSULE PO (00:19)
[2023-07-26] MEDS: AMPICILLIN 1 GM/NS 50 ML 1 GM/50 ML BAG IVPB ×2 (03:13→06:55)
[2023-07-26] MEDS: fentaNYL CITRATE INJ (*CRX) 100 MCG/2 ML VIAL IV PUSH (06:53)
[2023-07-26] MEDS: LACTATED RINGERS 1,000 ML 125 ML IV CONT (07:35)
--- NOTE | 2023-07-26 09:35 | WPDHPUPDATE1 ---
History and Physical Update Update Date/Time: 07/26/23 09:35 History and Physical has been reviewed, including an updated exam of the patient. There are NO changes in the patient's condition. Risks, benefits, and alternatives have been discussed and questions answered. Patient agrees to proceed with procedure.
[2023-07-26] MEDS: OXYTOCIN 30 UNITS/NS 500 ML 30 UNITS/500 ML BAG 999 UNITS IV CONT (10:44)
[2023-07-26] MEDS: IBUPROFEN 600 MG TABLET PO ×2 (11:15→19:27)
[2023-07-26] MEDS: OXYTOCIN 30 UNITS/NS 500 ML 30 UNITS/500 ML BAG 125 UNITS IV CONT (11:18)
--- NOTE | 2023-07-26 11:49 | PM.OBPRVD ---
OB - Vaginal Delivery Note Procedure Delivery date: 07/26/23 Induction method: Per Cervidil Protocol Delivery augmentation: Rupture of Membranes Delivery monitor: External FHT and Internal Uterine Route of delivery: Episiotomy description: None Laceration Description: Vaginal ( ) and Superficial Delivery repair: vicryl Specimen: No Quantitative Blood Loss (ml): 200 Anesthesia type: Epidural Disposition: Floor Complications: No immediate complications Narrative: patient prepped and draped in usual manner for this procedure. maternal expulsive efforts readily delivered vertex, nuchal cord was reduced, and the rest of baby delivered without difficulty. Cord clamped cut and placenta delivered spontaneously. Superficial vaginal wall laceration was oozing and rendered hemostatic using a [id number] 0 Vicryl suture. Uterus was well contracted no significant bleeding at this point the procedure was considered terminated with immediate postop condition of mother and baby both excellent. [place] Baby Weeks of gestation at delivery: 39 gender: Female Weight (pounds): 7 Weight (ounces): 11 presentation: vertex position: Right Occiput Anterior Placenta delivery description: Spontaneous Cord Vessel Description: 3 Vessels, Nuchal Cord and Reduced score one minute: 8 score five minutes: 9
--- NOTE | 2023-07-26 13:28 | PC.NURSE ---
Patient transferred to post room #284 via wheelchair. Support person present. Oriented to unit, room, information board, rooming in, admission packet and security measures. Patient verbalizes understanding.
[2023-07-27 04:00] VITALS: BP 113/78; PULSE 70; RESP 18; TEMP 36.2; O2SAT 99
[2023-07-27 05:19] LABS: Hematocrit 35.1 % (37.0-47.0); Hemoglobin 11.6 g/dL (12.0-15.0)
[2023-07-27] MEDS: MULTIVIT/MIN/PREN/FOL AC/IRON TABLET 1 TAB PO (08:03)
[2023-07-27 08:05] VITALS: BP 104/54; PULSE 68; RESP 16; TEMP 36.9; O2SAT 99
--- NOTE | 2023-07-27 09:48 | WPDANLDPN2 ---
Anes-Prog Note L&D Date/Time: 07/27/23 09:48 Comfortable throughout: labor and delivery Neuraxial method: epidural Epidural/Spinal procedure site: clean & non-tender Neuro status: Neuro function grossly intact. Cardiovascular status: normal Respiratory status: normal Airway patency: baseline Mental status: baseline Post-Op hydration status: normal Vital Signs: Last Vital Signs Temp 36.2 C L 07/27/23 04:00 Pulse 70 07/27/23 04:00 Resp 18 07/27/23 04:00 BP 113/78 07/27/23 04:00 Pulse Ox 99 07/27/23 04:00 O2 Del Method Room Air 07/25/23 17:10 Pain score (VAS): 0 I/O: Intake & Output 07/26/23 07/27/23 07/27/23 23:59 07:59 15:59 Intake Total 240 Balance 240 Post-procedural complaints: none Patient feedback: Patient satisfied with anesthetic care.
--- NOTE | 2023-07-27 10:23 | PM.OBDSVD ---
DS: Admitting Diagnosis Discharge Date 07/27/2023 Admitting Diagnosis DS: Discharge Diagnosis Discharge Diagnosis (1) , delivered: Code(s): O80 - Encounter for full-term uncomplicated delivery Status: Acute OB - DS: Summary OB Procedures : None OB Procedures Intrapartum: Spontaneous Vag Delivery OB Procedures: : None Peripartum Data Laceration Description: Vaginal ( ) and Superficial Episiotomy description: None Time Spent with Patient Time attestation: Total time spent providing and/or coordinating discharge services: DS: Data Data Completed and Pending Labs on day of discharge: Labs from last 24 hours 07/27/23 04:51 Hgb 11.6 L Hct 35.1 L Discharge Plan Discharge Discharging Clinician: Rod Mahan Patient Disposition: Home, Self-Care Activity: as tolerated Diet: as tolerated Patient Instructions: Antibiotic Form Stand Alone Forms: General Discharge Information Follow-up/Referrals: Rod Mahan MD [Physician] - 3 Weeks Discharge Medications: New ibuprofen 600 mg Tablet 600 mg PO Q6H PRN (Reason: Cramping) Qty: 30 0RF Continued Complete 30-975 mg-mcg Tablet 1 tablet PO DAILY Date of admission: 07/25/23 16:02 Primary Care Provider: PHYSICIAN,HEALTH SCIENCE SPECIALIST Admitting Provider: Rod Mahan Attending physician on admission: Rod Mahan Condition: Stable
[2023-07-27] MEDS: IBUPROFEN 600 MG TABLET PO (10:37)
[2023-07-29 09:19] VITALS: BP 116/67; PULSE 72; RESP 20; TEMP 36.6; O2SAT 99
== END 2023-07-27 13:30 | disposition home or self-care (01) | DRG 807 ==
LOC: ANHLDR 07-26 08:53 → ANHOB2 07-26 13:30
PROVIDERS: Admitting Provider Obstetrics & Gynecology; Visit Provider Obstetrics & Gynecology
DX: O69.1XX0 Labor and delivery complicated by cord around neck, with compression, not applicable or unspecified (principal); Z37.0 Single live birth; O70.0 First degree perineal laceration during delivery; O62.3 Precipitate labor; Z3A.39 39 weeks gestation of pregnancy
CPT/HCPCS: 36415; 85014; 85018; 85025; 86592; 86850; 86900; 86901; A9270; J0290; J2590; J2795; J3010; J7120

== ENCOUNTER 2023-10-01 15:18 | Outpatient (CLI) | payer BC, MEDICAID, SELFPAY ==
[2023-10-01 16:20] LABS: Beta HCG Quantitative < 2.39 mIU/ML
== END 2023-10-01 15:19 | disposition home or self-care (01) ==
LOC: ANHLAB 15:20
PROVIDERS: Visit Provider Obstetrics & Gynecology
DX: N92.6 Irregular menstruation, unspecified (principal)
CPT/HCPCS: 36415; 84702

== ENCOUNTER 2024-02-26 11:05 | Outpatient (CLI) | payer BC, MEDICAID, SELFPAY ==
--- NOTE | ~2024-02-26 | CT_ITS ---
EXAMINATION: CT abdomen pelvis w con DATE: 02/26/2024 11:36 INDICATION: Umbilical pain TECHNIQUE: Computed tomography (CT) of the abdomen and pelvis was performed with 100 mL Omnipaque-350 intravenous contrast. Automated exposure control and iterative reconstruction technique were employe d. The dose-length product was 233.73 mGy-cm. COMPARISON: None FINDINGS: Visualized mid to lower lungs are clear. Heart size normal. No pericardial or pleural effusion. Bilat eral breast implants with intracapsular rupture on the left. Liver, gallbladder, spleen, pancreas, bi lateral adrenal glands and kidneys are normal. Bladder, anteverted uterus and bilateral adnexa are no rmal with 1.3 cm dominant right ovarian follicle. Bowels including the appendix are normal. No free i ntraperitoneal gas or fluid. No pathologically enlarged abdominal or pelvic lymphadenopathy. Mild lum bar levocurvature with minimal spondylosis. Moderate lower thoracic spondylosis. IMPRESSION: 1. No acute intra-abdominal/pelvic process. Reviewed, dictated and finalized at location A. [employer] P[employer] LINE EXAMINER
== END 2024-02-26 11:06 | disposition home or self-care (01) ==
PROVIDERS: PCP Physician Assistant; Visit Provider Physician Assistant
DX: R10.33 Periumbilical pain (principal)
CPT/HCPCS: 74177; Q9967

== ENCOUNTER 2024-02-26 12:06 | Outpatient (CLI) | payer BC, MEDICAID, SELFPAY ==
[2024-02-26 13:29] LABS: Basophils Percent Auto 0.6 % (0.2-1.2); Eosinophils Absolute Auto 0.1 K/mm3 (0-0.3); Eosinophils Percent Auto 1.8 % (0-4.4); Hematocrit 41.7 % (37.0-47.0); Immature Granulocyte Absolute 0.01 K/mm3 (0.00-0.031); Immature Granulocyte Percent A 0.2 % (0-0.5); Lymphocytes Absolute Auto 1.56 K/mm3 (0.9-3.2); Lymphocytes Percent Auto 31.1 % (18.3-44.2); Mean Corpuscular HGB Conc 33.6 g/dl (32-36); Mean Corpuscular Hemoglobin 31.5 pg (26-34); Mean Corpuscular Volume 93.9 fl (80-100); Mean Platelet Volume 10.3 fl (7.4-10.4); Monocytes Absolute Auto 0.4 K/mm3 (0.1-0.6); Neutrophils Absolute Auto 2.9 K/mm3 (1.3-6.7); Neutrophils Percent Auto 58.3 % (45.5-73.1); Platelet Count Result 264 k/mm3 (150-375); Red Blood Count 4.44 M/mm3 (4.2-5.4); Red Cell Distribution Width 12.7 % (11.5-14.5)
[2024-02-26 13:39] LABS: Alanine Aminotransferase 18 U/L (6-35); Albumin Level 4.6 g/dL (3.5-5.1); Alkaline Phosphatase 50 U/L (38-126); Anion Gap 7 mmol/L (4-12); Aspartate Amino Transferase 21 U/L (14-36); Bilirubin,Total 1.2 mg/dL (0.2-1.3); Blood Urea Nitrogen 17 mg/dL (7-17); Calcium 8.8 mg/dL (8.4-10.2); Carbon Dioxide 24 mmol/L (22-30); Chloride 104 mmol/L (98-107); Cholesterol 156 mg/dL (0-200); Estimated Glomerular Filt Rate > 60; Glucose 89 mg/dL (65-110); HDL Direct 49 mg/dL; Sodium 135 mmol/L (137-145); Triglycerides 72 mg/dL (<150)
[2024-02-26 13:50] LABS: LDL Cholesterol Direct 76 mg/dL
[2024-02-26 14:36] LABS: Free T4 Free Thyroxine 1.03 ng/dL (0.78-2.19)
[2024-02-26 23:25] LABS: Hemoglobin A1C 4.2 % (<5.7)
[2024-02-27 00:24] LABS: Folic Acid > 20.0 ng/mL (2.76->20)
== END 2024-02-26 12:07 | disposition home or self-care (01) ==
PROVIDERS: PCP Physician Assistant; Visit Provider Physician Assistant
DX: Z13.220 Encounter for screening for lipoid disorders (principal); Z79.899 Other long term (current) drug therapy; Z13.29 Encounter for screening for other suspected endocrine disorder
CPT/HCPCS: 36415; 80053; 80061; 82607; 82746; 83036; 84439; 84443; 85025

== ENCOUNTER 2024-09-17 10:11 | Outpatient (CLI) | payer BC, MEDICAID, SELFPAY ==
--- NOTE | ~2024-09-17 | US_ITS ---
EXAMINATION TYPE: US breast LT limited COMPARISON: NONE REASON FOR STUDY: N63.20 - Unspecified lump in the left breast, unspecified... TECHNIQUE: Targeted sonographic evaluation of the left breast was performed. INTERPRETATION: No solid or cystic lesion seen in the left subareolar region. No dilated ducts identified. Breast imp lant present with complex internal echogenicity. IMPRESSION: No suspicious lesion seen in left subareolar region. Complex appearance of breast implant which could reflect rupture or possibly associated inflammatory reaction. If there is concern for aggressive lesion involving the implant, then consider pre and post contrast breast MR for further correlation. BI-RADS CATEGORY: BI-RADS 2: Benign Reviewed, dictated and finalized at [facility]. IMPRESSION: No suspicious lesion seen in left subareolar region. Complex appearance of breast implant which could reflect rupture or possibly as sociated inflammatory reaction. If there is concern for aggressive lesion invol ving the implant, then consider pre and postcontrast breast MR for further jo elation. BI-RADS CATEGORY: BI-RADS 2: Benign
== END 2024-09-17 10:12 | disposition home or self-care (01) ==
LOC: ANHIMG 10:14
PROVIDERS: PCP Physician Assistant; Visit Provider Obstetrics & Gynecology
DX: N63.20 Unspecified lump in the left breast, unspecified quadrant (principal)
CPT/HCPCS: 76642

== ENCOUNTER 2024-09-24 15:16 | Emergency (ER) | payer BC, MEDICAID, SELFPAY ==
[2024-09-24 15:17] VITALS: BP 128/75; PULSE 99; RESP 16; TEMP 36.4; O2SAT 100
--- OUTSIDE RECORDS SUMMARY | 2024-09-24 15:18 | XMS_ITS | Data Portability ---
Author Organization [facility] [employer], Main Office Address [address] [place] [address] Care Team Providers Care Land Mobile Radio Technician Name Role Phone AGUSTINA CONN Primary Care Provider Assessment Encounter Date Assessment Date Assessment LastModified by Organization Details LastModified Time 09/04/2022 09/04/2022 [facility] Call office if worse, ER if life-threatening illness RTC in 1 month She voices understanding of plan and agrees [email or web address] Not available 08/20/2022 17:40:52 10/02/2022 10/02/2022 [facility] Call office if worse, ER if life-threatening illness RTC in 3 months She voices understanding of plan and agrees [email or web address] Not available 10/02/2022 16:28:20 01/01/2023 01/01/2023 [facility] Call office if worse, ER if life-threatening illness RTC in September after of baby/ PRN She voices understanding of plan and agrees [email or web address] Not available 01/01/2023 16:47:11 Plan of Treatment Reminders Order Date Submit Date Provider Last Modified By Organization Details Last Modified Time Details Appointments None recorded. Lab None recorded. Referral psychiatris t referral - eval for ADHD 2022 023 Lauro Angulo MD, [address], [address], [place], [address], 4 12:33:34 Procedures eustachian tube balloon dilation (PROC) 2023 024 [email or web address] [facility], [address] [place], [address], 4 18:14:52 Surgeries None recorded. Imaging audiogram + tympanogram 2023 024 [email or web address] 42 [facility], [address] [facility], [address], [place], [address], 5 15:30:28 Medication Orders Ciprodex 0.3 %-0.1 % ear drops,suspe nsion 2023 024 [email or web address] [facility] [address], [address], 4 15:35:18 Wegovy 1.7 mg/0.75 mL subcutaneou s pen injector 2022 023 [email or web address] [facility] [address], [address], 3 15:40:34 ondansetron 4 mg disintegrat ing tablet 2022 023 [email or web address] [facility] [address], [address], 3 15:44:12 triamcinolo ne acetonide 0.1 % topical cream 2022 023 [email or web address] [facility] [address], [address], 3 15:44:18 Wegovy 1 mg/0.5 mL subcutaneou s pen injector 2022 023 [email or web address] [facility] [address], [address], 4 14:59:09 bupropion HCl XL 300 mg 24 hr tablet, extended release 2022 023 [email or web address] [facility] [address] In [facility], [address] [place], [address], 14:56:57 Patient TargetsNo targets recorded. Patient Instructions Encounter Date Encounter Id Patient Instructions Last Modified By Organization Details Last Modified Time 12/10/2023 [id number] DISCUSSED AT LENGTH TO COMPLETE THE CIPRODEX DROPS AND OBTAIN AN AUDIOGRAM AND TYMPANOGRAM. FURTHER DISCUSSED POSSIBLE ETBD WITH TUBE PLACEMENT PENDING TESTING RESULTS. Not available 12/10/2023 15:31:49 02/13/2024 [id number] she will undergo the Eustachian tube balloon procedure without tubes. [email or web address] Not available 02/13/2024 16:25:46 Reason for Referral Psychiatrist Referral for Un able to concentrate eval for ADHD Referring Physician: Janay Otero, Internal Medicine, Encounter Date: 09/04/2022 Results Created Date Observation Date Name Description Value Unit Range Abnormal Flag Note LastModifiedBy Organization Detail LastModifiedTime 01/27/20 24 01/24/2024 audio gram + tympa nogra m No observ ation record ed. [email or web address] [facility] [address] [place], [address], 01/29/2024 10:38:08 01/29/20 24 01/29/2024 audio gram + tympa nogra m No observ ation record ed. BARCODE [facility] [address] [place], [address], 01/29/2024 18:04:42 Result Notes None recorded. Problems Name Problem SNOMED Code Status Onset Date Resolution Date Notes Provider Name and Address Organization Details Recorded Time Vaginal odor 716483245 Completed Not Available [facility] 3 18:04:08 Irregular periods 65187618 Completed Not Available [facility] 3 18:04:08 Generaliz ed anxiety disorder 32388962 Active 2022 COURTNEY Bronson [address] [facility], [address], [place], [address] , [facility] 3 16:06:46 Weight gain 5486260 Active 2022 ED Bronson-C [address], [address], [place], [address] , [facility] 3 16:07:09 Fatigue 64547281 Active 2022 ED Bronson-C [address], [address], [place], [address] , [facility] 3 16:07:21 Insulin resistanc e 888658509 Active 2022 ED Bronson-C [address], [address], [place], [address] , [facility] 3 16:35:01 Obesity 731301657 Active 2022 ED Bronson-C [address], [address], [place], [address] , [facility] 3 16:35:05 Vitamin D deficienc y 16344747 Active 2022 FAVIAN Coronado, [facility] 3 10:03:04 Unable to concentra te 02230746 Active 2022 ED Bronson-C [address], [address], [place], [address] , [facility] 3 15:59:54 Eruption 759292340 Active 2022 ED Bronson-C [address], [address], [place], [address] , [facility] 3 15:48:14 Attention deficit hyperacti vity disorder 958816640 Active 2022 ED Bronson-C [address], [address], [place], [address] , [facility] 3 16:46:17 Sensorine ural hearing loss 23233097 Active 2023 Stephanie Magdaleno RN null, [facility] [employer] [facility] 4 15:25:09 Middle ear effusion 2949422586 Active 2023 ED Bernal [address] [facility], [address], [place], [address] , [facility] [employer] [facility] 4 15:29:58 Dysfuncti on of bilateral eustachia n tubes 40685720746 59947 Active 2023 Foreign Garcia MD [address] [facility], [address], [place], [address] , [facility] [employer] [facility] 4 16:25:30 Problem Notes None recorded. Procedures Surgical History Date Name Laterality Status Provider Name and Address Organization Details Recorded Time 07/21/19 extraction of wisdom tooth completed Shannen Huerta MA [facility] [employer] [facility] 07/24/2022 15:24:38 Breast augmentation w/implt completed Shannen Huerta MA [facility] [employer] [facility] 07/24/2022 15:24:52 Imaging Results None recorded. Procedure Notes None recorded. Medical Equipment None Reported. Allergies No known drug allergies Medications Name Sig Start Date Stop Date Status Note LastModified by Organization Details LastModified Time fluconazo le 150 mg tablet Take 1 tablet by oral route for 1 day. active Not Available Not Available No t Available hydrocodo ne 5 mg-acetam inophen 325 mg tablet 08/20 completed Not Available Not Available Not Available metronida zole 0.75 % (37.5 mg/5 gram) vaginal gel INSERT 1 APPLICAT ORFUL VAGINALL Y EVERY DAY AT BEDTIME FOR 5 DAYS 02/12 completed Not Available Not Available Not Available hydroxyzi ne pamoate 50 mg capsule TAKE 1 CAPSULE BY MOUTH THREE TIMES A DAY NEEDED FOR ANXIETY 10/02 completed Not Available Not Available Not Available metronida zole 500 mg tablet TAKE 1 TABLET BY MOUTH EVERY 12 HOURS 07/24 completed Not Available Not Available Not Available sulfameth oxazole 800 mg-trimet hoprim 160 mg tablet TAKE 1 TABLET BY MOUTH EVERY 12 HOURS 12/09 completed Not Available Not Available Not Available triamcino lone acetonide 0.1 % topical cream APPLY A THIN LAYER TO THE AFFECTED AREA(S) BY TOPICAL ROUTE 2 TIMES PER DAY NEEDED 01/01 completed Not Available Not Available Not Available hydrocort isone 2.5 % topical cream with perineal applicato r APPLY RECTALLY DAILY NEEDED FOR HEMORRHO IDS 07/24 completed Not Available Not Available Not Available dextroamp hetamine- amphetami ne ER 20 mg 24hr capsule,e xtend release TAKE 1 CAPSULE BY MOUTH EVERY DAY 01/01 completed Not Available Not Available Not Available cephalexi n 500 mg capsule TAKE 1 CAPSULE BY MOUTH EVERY 8 HOURS 07/24 completed Not Available Not Available Not Available dextroamp hetamine- amphetami ne 20 mg tablet TAKE 1 TABLET BY MOUTH TWICE A DAY FOR 30 DAYS active Not Available Not Available No t Available dextroamp hetamine- amphetami ne 15 mg tablet Take 1 tablet every day by oral route. 02/12 completed Not Available Not Available Not Available sertralin e 25 mg tablet TAKE 1 TABLET BY MOUTH EVERY DAY 07/24 completed Not Available Not Available Not Available mupirocin 2 % topical ointment 08/20 completed Not Available Not Available Not Available ergocalci ferol (vitamin D2) 1,250 mcg (50,000 unit) capsule TAKE 1 CAPSULE EVERY WEEK BY ORAL ROUTE. 01/01 completed Not Available Not Available Not Available ibuprofen 600 mg tablet 600 MG ORALLY EVERY 6 HOURS NEEDED FOR CRAMPING 07/24 completed Not Available Not Available Not Available methylpre dnisolone 4 mg tablets in a dose pack TK UTD 08/20 completed Not Available Not Available Not Available dextroamp hetamine- amphetami ne ER 30 mg 24hr capsule,e xtend release TAKE 1 CAPSULE BY MOUTH EVERY DAY IN THE MORNING FOR 30 DAYS 02/12 completed Not Available Not Available Not Available ketoconaz ole 2 % topical cream 08/20 completed Not Available Not Available Not Available ondansetr on 4 mg disintegr ating tablet LET 1 TABLET DISSOLVE ON TOP OF THE TONGUE TWICE A DAY NEEDED 01/01 completed Not Available Not Available Not Available sertralin e 50 mg tablet TAKE 1 TABLET BY MOUTH EVERY DAY 09/04 completed Not Available Not Available Not Available medroxypr ogesteron e 150 mg/mL intramusc ular suspensio n Inject 1 mL every 3 months by intramus cular route. 06/13 completed Not Available Not Available Not Available Ortho Tri-Cycle n (28) 0.18 mg(7)/0.2 15mg(7)/0 .25 mg(7)-0.0 35 mg tablet active Not Available Not Available Not Available hydroxyzi ne pamoate 25 mg capsule 25 MG ORALLY THREE TIMES A DAY 07/24 completed Not Available Not Available Not Available dextroamp hetamine- amphetami ne ER 25 mg 24hr capsule,e xtend release TAKE 1 CAPSULE BY MOUTH EVERY DAY IN THE MORNING 12/09 completed Not Available Not Available Not Available Depo-Prov era 150 mg/mL intramusc ular syringe Inject 1 mL every 3 months by intramus cular route. 07/15 completed Not Available Not Available Not Available azithromy gris 500 mg tablet Take 1 tablet twice a day by oral route for 1 day. active Not Available Not Available No t Available ciproflox acin 0.3 %-dexamet hasone 0.1 % ear drops,cody pension INSTILL 4 DROPS INTO BOTH EAR(S) 2 TIMES PER DAY FOR 7 DAYS 02/12 completed Not Available Not Available Not Available bupropion HCl XL 300 mg 24 hr tablet, extended release TAKE 1 TABLET BY MOUTH EVERY DAY 12/09 completed Not Available Not Available Not Available bupropion HCl XL 150 mg 24 hr tablet, extended release TAKE 1 TABLET BY MOUTH EVERY DAY 12/09 completed Not Available Not Available Not Available levonorge strel 0.15 mg-ethiny l estradiol 30 mcg tablets,3 mos pack(91) Take 1 tablet every day by oral route. 07/24 completed Not Available Not Available Not Available duloxetin e 20 mg capsule,d elayed release TAKE 1 CAPSULE BY MOUTH EVERY DAY FOR 90 DAYS active Not Available Not Available No t Available magnesium active Not Available Not Iqra ilable Not Available Pre- active Not Available Not Iqra ilable Not Available Probiotic active Not Available Not Iqra ilable Not Available Saxenda 3 mg/0.5 mL (18 mg/3 mL) subcutane ous pen injector 01/01 completed Approved Valid: 08/27/22-1 03/26/22 Case# [id number] . Pt has to come in for a weight check to [facility] after expirati on. Not Available Not Available Not Available Wegovy 2.4 mg/0.75 mL subcutane ous pen injector INJECT 2.4 MG SUBCUTAN EOUSLY WEEKLY active Not Available Not Available No t Available Wegovy 1.7 mg/0.75 mL subcutane ous pen injector INJECT 1.7 MG SUBCUTAN EOUSLY ONE TIME PER WEEK active Not Available Not Available No t Available Wegovy 1 mg/0.5 mL subcutane ous pen injector INJECT 1 MG UNDER THE SKIN WEEKLY DIRECTED 12/09 completed Not Available Not Available Not Available Wegovy 0.25 mg/0.5 mL subcutane ous pen injector INJECT 0.25 MG UNDER THE SKIN EVERY WEEK 12/09 completed Not Available Not Available Not Available Wegovy 0.5 mg/0.5 mL subcutane ous pen injector INJECT 0.5 MG SUBCUTAN EOUSLY EVERY WEEK 12/09 completed Not Available Not Available Not Available Vitals Date Recorded Body height Body mass index (BMI) Body weight Body temperature Heart rate Oxygen saturation Oxygen saturation in Arterial blood by Pulse oximetry Systolic And Diastolic Provider Name and Address Organization Details Last Updated DateTime 3 157.48 cm 34.8 kg/m2 28700.5 5 g 97.7 [degF] 104 /min 98 % 98 % 126/82 mm[Hg] Shannen Huerta MA [facility] [employer] [facility] 3 15:38:01 Date Recorded Body height Body mass index (BMI) Body weight Body temperature Heart rate Oxygen saturation Oxygen saturation in Arterial blood by Pulse oximetry Systolic And Diastolic Provider Name and Address Organization Details Last Updated DateTime 3 157.48 cm 33.3 kg/m2 74764.8 1 g 97.8 [degF] 100 /min 98 % 98 % 128/78 mm[Hg] Shannen Huerta MA [facility] [employer] [facility] 3 15:35:22 Date Recorded Body height Body mass index (BMI) Body weight Body temperature Provider Name and Address Organization Details Last Updated DateTime 12/10/2023 157.48 cm 28.3 kg/m2 43210.1 g 98.1 [degF] Stephanie Magdaleno RN [facility] 12/10/2023 14:58:42 Date Recorded Body height Body mass index (BMI) Body weight Body temperature Heart rate Oxygen saturation Oxygen saturation in Arterial blood by Pulse oximetry Systolic And Diastolic Provider Name and Address Organization Details Last Updated DateTime 157.48 cm 30 kg/m2 54372.1 5 g 97.8 [degF] 98 /min 99 % 99 % 122/78 mm[Hg] Shannen Huerta MA [facility] 15:39:33 Date Recorded Body height Body mass index (BMI) Body weight Provider Name and Address Organization Details Last Updated DateTime 02/13/2024 157.48 cm 25.4 kg/m2 18858.34 g Stephanie Magdaleno RN [facility] 02/13/2024 15:33:04 Social History Question Answer Notes LastModified by Organizat ion Details LastModified Time Tobacco Smoking Status Never Smoker Shannen Huerta MA null, [facility] 07/24/2022 15:17:12 What Is Your Level Of Caffeine Consumption? Moderate Information not available 07/24/2022 In The 14 Days Before Symptom Onset, Have You Had Close Contact With A Laboratory-confi rmed COVID-19 While That Case Was Ill? No Information not available 07/24/2022 In The 14 Days Before Symptom Onset, Have You Had Close Contact With A Person Who Is Under Investigation For COVID-19 While That Person Was Ill? No Information not available 07/24/2022 What Type Of Diet Are You Following? REGULAR Information not available 07/24/2022 What Is The Highest Grade Or Level Of School You Have Completed Or The Highest Degree You Have Received? [id number] Information not available 07/24/2022 Have There Been Any Changes To Your Family Or Social Situation? Yes Information not available 07/24/2022 What Is The Fluoride Status Of Your Home? Unknown Information not available 07/24/2022 Are There Any Guns Present In Your Home? Yes Information not available 07/24/2022 Do You Use Insect Repellent Routinely? No Information not available 07/24/2022 Where Do You Live? SingleLevelHouse Information not available 07/24/2022 What Was The Date Of Your Most Recent Tobacco Screening? 09/04/2022 Information not available 09/04/2022 How Many Children Do You Have? 1 Information not available 07/24/2022 Do You Have Any Pets? Yes Information not available 07/24/2022 What Is Your Relationship Status? Single Engaged Information not available 07/24/2022 Do You Use Your Seat Belt Or Car Seat Routinely? Yes Information not available 07/24/2022 Do You Have Smoke And Carbon Monoxide Detectors In Your Home? Yes Information not available 07/24/2022 Are You Passively Exposed To Smoke? No Information not available 07/24/2022 Are There Any Smokers In Your House? No Information not available 07/24/2022 Do You Use Sunscreen Routinely? Yes Information not available 07/24/2022 Has Tobacco Cessation Counseling Been Provided? No Information not available 07/24/2022 Have You Recently Traveled Abroad? No Information not available 07/24/2022 Do You Have Any Dietary Restrictions? No Information not available 07/24/2022 Sex: Unknown Functional Status Question Answer Note LastModified by Organizat ion Details LastModified Time Do you use any illicit or recreational drugs? No canabis Information not available 07/24/2022 Do you or have you ever used any other forms of tobacco or nicotine? socially vapes Information not available 10/02/2022 What is your level of alcohol consumption? None Information not available 07/24/2022 Are you currently employed? Yes Information not available 07/24/2022 What is your exercise level? Moderate Information not available 07/24/2022 Mental Status Question Answer Note LastModified by Organization D etails LastModified Time Do you feel stressed (tense, restless, nervous, or anxious, or unable to sleep at night)? [id number] Information not available 07/24/2022 Family History Relationship Description Onset Age of this Age Resolved Age Notes LastModified by Organization Details LastModified Time Paternal Grandfather Hearing loss NOISE EXPOSU RE [email or web address] Not available 12/10/2023 14:57:37 Medical History Condition Response NERVE DISEASE N BLINDNESS N RHEUMATIC FEVER N KIDNEY STONES N BLADDER PROBLEMS N MRSA N OTHER # 1 N POLIO N LUNG DISEASE/DISORDER N HISTORY OF DRUG ABUSE N RADIATION / CHEMOTHERAPY N COPD N Other # 2 N BLOOD DISEASES N EAR OR HEARING PROBLEMS N MUMPS N SHINGLES N DEPRESSION (INCLUDING POST ) N BOWEL PROBLEMS N FAILED BACK SYNDROME N STROKE/TIA N ULCERS N BENIGN PROSTATIC HYPERPLASIA N MEASLES N HYPOTENSION N MYOCARDIAL INFARCTION N OBESITY N GERD/NAUSEA N ANEURYSM N URINARY/BLADDER/KIDNEY PROBLEMS N CORONARY ARTERY DISEASE (CAD) N Do you have Advance directive? N ADDICTION CONCERNS N Impotence N ENDOMETRIOSIS N USE OF BLOOD THINNERS N SKIN PROBLEMS N GASTROINTESTINAL DISORDER N PARATHYROID DISEASE N PERIPHERAL VASCULAR DISEASE N MUSCLE,JOINT OR BONE PROBLEMS N GASTROINTESTINAL BLEEDING N BLOOD CLOTS N ASTHMA N CATARACTS N Abdominal Pain N ERECTILE DYSFUNCTION N ARTERIAL INSUFFICIENCY N VARICOSITIES N GI PROBLEMS N CHF N Low Testosterone N INFERTILITY N AIDS/HIV N CHEMOTHERAPY / RADIATION N LIVER DISEASE N MALE HYPOGONADISM N HYPERTENSION N Deficiency N TOURETTE'S N ANXIETY DISORDER N BLOOD TRANSFUSION N ANEMIA/BLOOD DISORDER N CHRONIC EAR INFECTIONS N TUBERCULOSIS N GLAUCOMA N FOOT PROBLEM N DIVERTICULITIS N SLEEP APNEA N CHICKENPOX N BACK INJECTIONS N ALLERGIES/HAYFEVER N INFECTIOUS DISEASE N PROSTATE N HEART ARRHYTHMIA N INSOMNIA N ESRD N HIGH CHOLESTEROL / HYPERLIPIDEMIA N HYPERTHYROIDISM N EYE PROBLEMS N PVD N EDEMA N CHRONIC PAIN SYNDROME N HYPOTHYROIDISM N CONSTIPATION N CAROTID BLOCKAGE N BACK / NECK PROBLEMS N HAVE YOU BEEN HOSPITALIZED OR SEEN IN [facility] ER IN THE PAST YEAR ? N ATHEROSCLEROSIS N BREAST PROBLEMS N DIALYSIS N POLYCYSTIC OVARIES N ECZEMA N HISTORY WITH COMPLICATIONS WITH ANESTHES IA ? N OSTEOPOROSIS N ARTHRITIS N NO SIGNIFICANT PAST MEDICAL HISTORY N APPENDICITIS N DIABETES, TYPE N BAD TEETH N VON WILLIBRAND'S DISEASE N ENT N SEASONAL ALLERGIES N HEARTBURN / REFLUX N GI N AUTISM SPECTRUM DISORDER (ASD) N POST LAMINECTOMY SYNDROME N HEPATITIS / LIVER DISEASE N GOUT N SLEEP DISORDER N ALZHEIMER'S DISEASE N Brain Problems N HERPES N DEMENTIA N SEIZURES/EPILEPSY N HEADACHES/MIGRAINES N VASCULAR DISEASE N PACEMAKER N DIZZINESS N KIDNEY DISEASE N HEART DISEASE/HEART PROBLEMS N MULTIPLE SCLEROSIS N NEUROPSYCHOLOGICAL N CARDIAC ARRHYTHMIA N CANCER: SPECIFY N ANESTHESIA COMPLICATIONS N Gall Stones N ATRIAL FIBRILLATION N PULMONARY EMBOLISM N AUTOIMMUNE DISEASE N Gynecological HistoryNo gynecological history recorded. Obstetrics History GPAL:G 0 P 0 0 0 0 Past Encounters Encounter ID Performer Location Encounter Start Date Encounter Closed Date Diagnosis/Indication Diagnosis SNOMED-CT Code Diagnosis ICD10 Code Diagnosis Note [id number] Иван levin MD [facility] [address] [facility], [address] [place] [address] 07/24/2022 14:57:59 07/24/2022 16:11:01 Generalized anxiety disorder 73773146 F41.1 Start Wellbutrin -she is aware side effects, risks, and benefits Call office if any change in mood or behavior She declines psychiatry and/or counseling referral today Weight gain 5972516 R63. 5 Check labs Fatigue 03894957 R53.83 Check labs Cholesterol screening 27 9130183 Z13.220 Diabetes m ellitus screening 975145943 Z13.1 Insulin resistance 70167 5000 E88.81 labs as aboveWe talked about possible medication s we can use including metformin and/or G LP 1 agonistsSh e denies any personal or family history of thyroid cancer, denies any personal history of pancreatit is Obesity 472934285 E66.9 recommend healthy, well balanced mealsfocus on lean meats, fresh vegetables , fresh fruits, whole grainsredu ce fast/proce ssed foods or eating out to no more than 1-2 times per weekaim to get 30 min of exercise most days of the week- walking is a great choicealso recommend resistance training 2-3 times per week we had a long discussion about nutrition, how to figure out TDEE, and how to work to be in a mild deficit without crash dietingrec ommend TDEEcalcul ator.net to figure out TDEE, aim to get 200-300 cals below TDEE for sustainabl e weight losswe discussed the importance of protein, we discussed macros and how to count themthe importance of daily fitness was discussed, including the importance of resistance trainingon line nutrition resources shared with patient over 60 min spent with patient and over half spent on counseling [id number] Иван levin MD Lat[facility] [place] [address] [place] [address] 08/03/2022 14:00:27 08/03/2022 14:28:59 Generalized anxiety disorder 80139163 F41.1 on Wellbutrin -she is aware side effects, risks, and benefitsCa ll office if any change in mood or behaviorSh e declines psychiatry and/or counseling referral today Insulin resistance 51270 5000 E88.81 on We[employer] Obesity 948654090 E66.9 recommend healthy, well balanced mealsfocus on lean meats, fresh vegetables , fresh fruits, whole grainsredu ce fast/proce ssed foods or eating out to no more than 1-2 times per weekaim to get 30 min of exercise most days of the week- walking is a great choicealso recommend resistance training 2-3 times per week we had a long discussion about nutrition, how to figure out TDEE, and how to work to be in a mild deficit without crash dietingrec ommend TDEEcalcul ator.net to figure out TDEE, aim to get 200-300 cals below TDEE for sustainabl e weight losswe discussed the importance of protein, we discussed macros and how to count themthe importance of daily fitness was discussed, including the importance of resistance trainingon line nutrition resources shared with patient We discussed GLP-1 agonist mechanism of action and how to mitigate side effects. Patient denies any personal or family history of MEN II, MTC or an personal history of pancreatit is. Patient is aware to call office with any severe abdominal pain or n/v, or any thyroid pain or swelling. We discussed dosing schedule and storage. Patient was shown how to use the medication on a demo device and then gave themselves their first shot in office without issue. [employer]itness Pal keya recommende d to track foods. Discussed signs/symp toms of hypo and hyperglyce berto. 30 min spent with patient and over half spent on counseling . Patient voices understand ing of plan and agrees. over 30 min spent with patient and over half spent on counseling [id number] Иван levin MD [facility] [place] [address] [address] 09/04/2022 15:28:06 09/04/2022 16:02:34 Generalized anxiety disorder [id number] F41.1 increase Wellbutrin -she is aware side effects, risks, and benefitsCa office if any change in mood or behaviorSh e declines counseling referral todayPsych referral placed Insulin resistance [id number] 5000 E88.81 on Wegovy Obesity 050423173 E66.9 recommend healthy, well balanced mealsfocus on lean meats, fresh vegetables , fresh fruits, whole grainsredu ce fast/proce ssed foods or eating out to no more than 1-2 times per weekaim to get 30 min of exercise most days of the week- walking is a great choicealso recommend resistance training 2-3 times per week increase wegovy per her requestpt is aware of side effects, risks, benefitspt denies any personal or family history of MEN II or MTC, denies and personal history of pancreatit ispt knows to call the office if any severe n/v or abdominal pain Fatigue [id number] R53.83 vit d was low on labs, now on supplement Unable to concentrate 60 635573 R41.840 Get appointmen t with psychiatry for ADHD evaluation per her request Vitamin D deficiency 347 44882 E55.9 on supplement [id number] Иван levin MD [facility] Internal Med [facility] [address] [address] 10/02/2022 15:23:17 10/02/2022 15:50:06 Generalized anxiety disorder [id number] F41.1 on Wellbutrin -she is aware side effects, risks, and benefitsCa office if any change in mood or behaviorCo ntinue counseling with therapistP sych referral placed Insulin resistance 22175 5000 E88.81 on Wegovy Obesity 066722837 E66.9 recommend healthy, well balanced mealsfocus on lean meats, fresh vegetables , fresh fruits, whole grainsredu ce fast/proce ssed foods or eating out to no more than 1-2 times per weekaim to get 30 min of exercise most days of the week- walking is a great choicealso recommend resistance training 2-3 times per week increase wegovy per her request, will give her a small amount of zofran for prn usept is aware of side effects, risks, benefitspt denies any personal or family history of MEN II or MTC, denies and personal history of pancreatit ispt knows to call the office if any severe n/v or abdominal pain Unable to concentrate 60 983309 R41.840 Get appointmen t with psychiatry for ADHD evaluation per her request- has appt scheduled later this week- Dr. Angulo Vitamin D deficiency 347 18734 E55.9 on supplement Eruption [id number] R21 start triamcinol one prncall office if no improvemen t after med [id number] Иван levin MD [facility] [place] [address] [facility], [place] [address] [place] [address] 01/01/2023 15:28:05 01/01/2023 15:56:34 Generalized anxiety disorder [id number] F41.1 Follows psychiatry - Devora at Dr. Angulo's officeoff meds currently due to pregnancyC all office if any change in mood or behaviorCo ntinue counseling with therapist Insulin resistance 66661 5000 E88.819 stopped wegovy due to Obesity 090089781 E66.9 recommend healthy, well balanced mealsfocus on lean meats, fresh vegetables , fresh fruits, whole grainsredu ce fast/proce ssed foods or eating out to no more than 1-2 times per weekaim to get 30 min of exercise most days of the week- walking is a great choicealso recommend resistance training 2-3 times per week Discussed she still can get moderate exercise while as long as her OB approves- she can walk daily, and can still do weight training (avoid heavy, complex lifts), listen to her body, stop if uncomforta ble or feels like she cannot tolerate it We talked about ways to help with cravings- eating a protein choice with every meal and snack, aiming to get fiber with every meal (25g per day), increase volume by eating more vegetables and fruits over 25 min spent with patient, over half spent on counseling Vitamin D deficiency 347 88613 E55.9 on supplement 77179662 Z33.1 on PNVhas another OB appt tomorrow- Dr. Mahan Attention deficit hyperactivity disorder 519404008 F90.9 was on adderall, now off of it due to pregnancyf [facility] psychiatry as above [id number] Foreign Garcia MD [facility] [place] [address] [email or web address] [address] 12/10/2023 14:42:19 12/10/2023 15:32:27 Sensorineural hearing loss 96776043 H90.5 Middle ear effusion 1004 293193 H74.8X9 THERE IS MIDDLE EAR FLUID PRESENT BILATERALL Y, PATIENT IS TO START CIPRODEX FOR MANAGEMENT . [id number] Foreign Gacria MD [facility] [place] [facility] [place] [address] [email or web address] [address] 02/13/2024 15:30:58 02/19/2024 10:17:56 Dysfunction of bilateral eustachian tubes [id number] 149717 H69.93 Health Concerns Section Related Observation LastModified by Organization Detai ls LastModified Time None Recorded Concern Status LastModified by Organization Details LastModified Time None Recorded Advance Directives Directive None Recorded Payers Insurance Date Sequence Insurance Name Policy Number Policy Hartmann Covered Member ID Hartmann Member ID Guarantor Name 02/29/2024 1 [facility] (PPO) [id number] Joe Pradhan Keon [id number] Summer Carolynn Keon 02/13/2024 1 [facility] - DOS ON OR AFTER 20 (MEDICAID REPLACEMENT - HMO) Summer Carolynn Herbert [id number] Summer Carolynn Herbert 02/13/2024 2 [facility] - DOS ON OR AFTER 20 (MEDICAID REPLACEMENT - HMO) Summer Carolynn Herebrt [id number] Summer Carolynn Herbert 02/13/2024 2 [facility] 06/23/2021 AND AFTER (MEDICAID REPLACEMENT - HMO) Summer Carolynn Herbert [id number] Summer Carolynn Keon 02/13/2024 1 [place] Deb Herbert [id number] Deb Herbert Notes Date Note Type Note Provider Name and Address Organization Details Recorded Time 09/04/2022 text/html Summer presents today for follow-up. She reports she tried to go back on the sertraline, but she did not like how it made her feel. She still having issues with anxiety. She is requesting to go up on her Wellbutrin dose. She denies any SI or HI today. She also reports she had a childhood diagnosis of ADHD. She is interested in being tested for this again and seeing if medication is appropriate for her. She reports she has difficulty with concentrating and managing tasks. She has been doing very well on the Wegovy and has lost about 14 lb since we started. She has noticed she gets nauseous when she eats large volumes of food or if she eats highly fatty foods. She is working on learning what is best for her to eat. She is requesting to go up to the 1 mg dose. She is still having some fatigue, however we recently started her on vitamin-D supplement which can take some time to work. COURTNEY Bronson [address], [address], [place], [address], [employer] 09/04/2022 16:33:31 10/02/2022 text/html Summer presents today for follow-up. She reports that anxiety is improved on the higher dose of Wellbutrin. She has not noticed any improvement in her ability to concentrate. She does report that she has her psychiatric appointment later this week to be evaluated for ADHD. She denies any SI or HI today. She reports she did start seeing a therapist last week. She reports that she was not able to get the Saxenda at the pharmacy, it is back ordered as well. She is wanting to try going up to the 1.7mg dose of the Wegovy as that is available instead.She reports she has been working hard on her nutrition and feels like she will not have side effects by going to the higher dose. She also reports she has got an itchy rash on the right upper arm. No known exposures to any new products or outdoor plants. No improvement with OTC medication. COURTNEY Bronson [address], [address], [place], [address], [employer] 10/02/2022 16:29:58 01/01/2023 text/html Summer presents today for follow-up. She reports she is now 10 weeks . They were presenting but they were really trying either. She has since stopped all medications. She is taking a vitamin. Her next appointment with OB as tomorrow. She reports that she had a 70 lb weight gain with her last baby. She is very concerned she will gain a lot of weight with this . She reports she has been noticing a lot of cravings and has been struggling with portion control. She was following Psychiatry for the anxiety as well as ADHD. She stopped all of those meds. She reports her psychiatrist is aware. She feels like her mood is stable right now off the medications. She denies any SI or HI today. ED [facility] [address], [place], [address], [employer] 01/01/2023 16:47:25 12/10/2023 text/html This patient has a past medical history significant for anxiety, ADHD and vitamin-D deficiency. She reports decreased hearing and ear fullness right greater than the left. She reports that these symptoms have been off and on throughout her lifetime but have worsened over the last 2 months. She states that she has used Sudafed and Flonase without relief of symptoms. She does report using an inversion table and states that this does cause periodic relief of her symptoms. She states that her hearing sounds like a microphone. she states that she constantly hears her heartbeat. She does note that she had failed her hearing test as a but according to her mother she has passed hearing test throughout her oral surgery physician. She did follow-up with her PCP approximately 3 weeks ago with negative findings. She denies any rhinorrhea or nasal congestion. She denies having any recent audiology testing completed. ED [facility] [address], [address], [place], [address], [employer] 12/10/2023 15:31:53 02/13/2024 text/html this patient has a lifelong history of Eustachian tube dysfunction but has been worsened in the last 2 months. She thought Flonase worked okay and has been on Sudafed which did not help and ear drops. She did have an audiogram which was mostly normal there was a conductive component. She reports muffled hearing although she is able to fly. Foreign Garcia MD [address], [facility] [address], [place], [address], [place] [facility] 02/13/2024 16:26:10 OBGyn Episode No OBEpisode recorded.
--- OUTSIDE RECORDS SUMMARY | 2024-09-24 15:18 | XMS_ITS | Clinical Summary ---
Author Organization [facility] Address [address] [place] [address] Care Team Providers Care Route Manager Name Role Phone Unavailable Primary Care Provider Unavailabl e Source Comments [facility],non-owned Affiliates and Associated Physician Practices is amultiple site organization consisting of ambulatory clinics and hospital sitesin [place], [place], [place] and [place]. This disclosure is being madepursuant to the Care Everywhere program and may not contain all information available regarding this patient. Last updated 17.[facility] Allergies No known active allergies Medications * Be aware that medications may not be up to date on this document. Alwaysverify current medications with the patient. [facility] Wort (V-R [facility] WORT) 300 MG Take 400 mg by mouth once daily Active Nutritional Supplements (JUICE PLUS FIBRE PO) Take 1 Dose by mouth once daily Active Ashwagandha CAPS capsule Take 1 capsule by mouth once daily Active Melatonin-Theani ne (MELATONIN FORTE/L-THEANINE PO) Take 400 mg by mouth once daily Active fluconazole (DIFLUCAN) 150 MG tablet Click one tablet by moth, and then another in 2 days. 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 history of congenital heart defect from Last 3 Months Social History Tobacco Use Types Packs/Day Years Used Date Smoking Tobacco: Never Smokeless Tobacco: Never Alcohol Use Standard Drinks/Week Comments Never 0 (1 standard drink = 0.6 oz pur e alcohol) Comments No Sex and Gender Information Value Date Recorded Sex Assigned at Not on file Legal Sex Female 10:30 AM CDT Gender Identity Not on file Sexual Orientation Not on file Last Filed Vital Signs Vital Sign Reading Time Taken Comments Blood Pressure 116/70 10/11/2020 1:24 PM CDT Pulse - - Temperature 35.3 C (95.5 F) 10/11/2020 1:24 PM CDT Respiratory Rate - - Oxygen Saturation - - Inhaled Oxygen Concentration - - Weight 68.7 kg (151 lb 6.4 oz) 10/11/2020 1:24 P M CDT Height 157.5 cm (5' 2) 10/11/2020 1:24 PM CDT Body Mass Index 27.69 10/11/2020 1:24 PM CDT Plan of Treatment Upcoming Encounters Date Type Department Care Team (Late st Contact Info) Description 10/28/2024 10:30 AM CDT Appointment [address] [address] Rod Mahan MD [address] [place] [address] 10/28/2024 10:30 AM CDT Appointment [address] [address] Health Maintenance Due Date Last Done Comments HIV SCREENING 08/14/2014 HPV VACCINE (1 - 3-dose series) 08/14/2014 CHLAMYDIA/GONORRHEA SCREENING 2015 HEPATITIS C SCREENING 08/10/2017 DTAP/TDAP/TD VACCINES (1 - Tdap) 08/14/2018 HEPATITIS B VACCINE (1 of 3 - 19+ 3-dose series) 08/14/2018 PAP SMEAR 08/14/2020 COVID-19 VACCINE ( - 2023-2 5 season) 2023 DEPRESSION SCREENING 03/25/2024 INFLUENZA VACCINE (#1) 2024 3, 01/23/2013 ZOSTER VACCINE (1 of 2) 08/14/2049 HIB VACCINE Aged Out No longer eligi ble based on patient's age to complete this topic MENINGOCOCCAL (Group B) VACCINE SHARED DECISION-MAKING Aged Out No longer eligible based on patient's age to complete this topic MENINGOCOCCAL GROUPS A/C/Y/W VACCINE Aged Out No longer eligible b ased on patient's age to complete this topic PNEUMOCOCCAL VACCINE Aged Out No long er eligible based on patient's age to complete this topic
--- OUTSIDE RECORDS SUMMARY | 2024-09-24 15:18 | XMS_ITS | Data Portability ---
Author Organization [facility] Address [address] [facility] [place] [address] Care Team Providers Care Transitional Care Liaison Name Role Phone FERMINMANDAALYSSAIE Primary Care Provider Unavailab le Assessment No assessment recorded. Plan of Treatment Reminders Order Date Submit Date Provider Last Modified By Organization Details Last Modified Time Details Appointments None recorded. Lab TSH + free T4, serum 2023 [facility], [address] [place] [address], [address], 4 10:43:30 CMP, serum or plasma 2023 [facility], [address] [place] [address], [address], 4 16:19:24 CBC w/ auto diff 2023 [facility], [address] [place] [address], [address], 4 16:19:25 vitamin B12 + folate, serum or blood 2023 024 [facility], [facility] [address], [address], 4 10:43:24 lipid panel, serum 2023 024 [facility], [facility] [address], [address], 4 08:40:53 HbA1c (hemoglobi n A1c), blood 2023 024 [facility], [facility] [address], [address], 4 10:09:56 TSH + free T4, serum 2023 024 [facility], [address] [place] [address], [address], 4 08:40:54 lipid panel, serum 2023 024 [facility], [address] [place] [address], [address], 4 16:19:25 CMP, serum or plasma 2023 024 [facility], [address] [place] [address], [address], 4 08:40:53 CBC w/ auto diff 2023 024 [facility], [address] [place] [address], [address], 5 14:41:41 vitamin B12 + folate, serum or blood 2023 024 [facility], [address] [place] [address], [address], 5 09:31:52 HbA1c (hemoglobi n A1c), blood 2023 024 [facility], [address] [place] [address], [address], 5 09:31:52 bacterial vaginosis + vaginitis panel, vaginal 2019 020 [facility], [address] [place] [address], [address], [place], [address], 0 15:07:52 CBC w/ auto diff 2019 020 [facility], [address] [facility], [address], [place], [address], 0 06:12:39 ferritin, serum or plasma 2019 020 [facility], [address] [place] [address], [address], [place], [address], 0 06:12:41 TIBC (total iron-petar ng capacity), serum 2019 020 [facility], [address] [place] [address], [address], [place], [address], 0 06:12:39 HCG, intact + beta subunit, quant, serum or plasma 2019 020 [facility], [address] [place] [address], [address], [place], [address], 0 06:12:40 Referral None recorded. Procedures None recorded. Surgeries None recorded. Imaging CT, abdomen + pelvis, w/ contrast 2023 [facility], [address], [place] [facility], [place], [address], 4 15:06:24 US, pelvis, transabdom inal + transvagin al 2019 [facility] ([facility]), [address] [place], [address], 0 13:46:24 Medication Orders Wegovy 1.7 mg/0.75 mL subcutaneo us pen injector [address] [facility] [id number] [facility], [address] [place], [address], 4 13:22:50 Bactrim DS 800 mg-160 mg tablet 2023 024 [facility] [id number] In [facility], [address] [place] [address], [address], 4 14:02:36 Wegovy 0.25 mg/0.5 mL subcutaneo us pen injector 2023 024 [email or web address] [id number], [address], 4 18:37:25 Patient TargetsNo targets recorded. Patient Instructions Encounter Date Encounter Id Patient Instructions Last Modified By Organization Details Last Modified Time 08/29/2023 [id number] A healthy lifestyle: care instructions [email or web address] Not available 09/22/2023 16:51:33 Reason for Referral None Reported. Results Created Date Observation Date Name Description Value Unit Range Abnormal Flag Note LastModifiedBy Organization Detail LastModifiedTime 06/29/1906/30/2019 CBC w/ auto diff WBC 9.6 x10e3 /uL 3.4-10 .8 Not Available [facility] ([facility]) [address] [place], [address], 06/30/2019 06:12:39 06/29/1906/30/2019 CBC w/ auto diff RBC 4.57 x10e6 /uL 3.77-5 .28 Not Available [facility] ([facility]) [address] [place], [address], 06/30/2019 06:12:39 06/29/1906/30/2019 CBC w/ auto diff hemoglobin 14.2 g/dL 11.1-1 5.9 Not Available [facility] ([facility]) [address] [place], [address], 06/30/2019 06:12:39 06/29/1906/30/2019 CBC w/ auto diff hematocrit 42.3 % 34.0-4 6.6 Not Available [facility] ([facility]) [address] [place], [address], 06/30/2019 06:12:39 06/29/19 20 06/30/2019 CBC w/ auto diff MCV 93 fL 79-97 Not Available [facility] ([facility]) [address] [facility], [place], [address], 06/30/2019 06:12:39 06/29/19 20 06/30/2019 CBC w/ auto diff MCH 31.1 pg 26.6-3 3.0 Not Available [facility] ([facility]) [address] [facility], [place], [address], 06/30/2019 06:12:39 06/29/19 20 06/30/2019 CBC w/ auto diff MCHC 33.6 g/dL 31.5-3 5.7 Not Available [facility] ([facility]) [address] [facility], [place], [address], 06/30/2019 06:12:39 06/29/19 20 06/30/2019 CBC w/ auto diff RDW 12.1 % 11.7-1 5.4 Not Available [facility] ([facility]) [address] [place], [address], 06/30/2019 06:12:39 06/29/19 20 06/30/2019 CBC w/ auto diff platelets 298 x10e3 /uL 150-45 0 Not Available [facility] ([facility]) [address] [facility] [place] [facility], [place], [address], 06/30/2019 06:12:39 06/29/19 20 06/30/2019 CBC w/ auto diff neutrophils 70 % not estab. Not Available [facility] ([facility]) [address] [facility], [place], [address], 06/30/2019 06:12:39 06/29/19 20 06/30/2019 CBC w/ auto diff lymphs 19 % not estab. Not Available [facility] ([facility]) [address] [place], [address], 06/30/2019 06:12:39 06/29/19 20 06/30/2019 CBC w/ auto diff monocytes 9 % not estab. Not Available [facility] ([facility]) [address] [place], [address], 06/30/2019 06:12:39 06/29/19 20 06/30/2019 CBC w/ auto diff eos 1 % not estab. Not Available [facility] ([facility]) [address] [facility], [place], [address], 06/30/2019 06:12:39 06/29/1906/30/2019 CBC w/ auto diff basos 0 % not estab. Not Available [facility] ([facility]) [address] [facility], [place], [address], 06/30/2019 06:12:39 06/29/19 20 06/30/2019 CBC w/ auto diff immature cells MORPHOLOGY TEACHER Not Available [facility] ([facility]) [address] [facility], [place], [address], 06/30/2019 06:12:39 06/29/1906/30/2019 CBC w/ auto diff neutrophils (absolute) 6.8 x10e3 /uL 1.4-7. 0 Not Available [facility] ([facility]) [address] [place], [address], 06/30/2019 06:12:39 06/29/1906/30/2019 CBC w/ auto diff lymphs (absolute) 1.8 x10e3 /uL 0.7-3. 1 Not Available [facility] ([facility]) [address] [place], [address], 06/30/2019 06:12:39 06/29/19 20 06/30/2019 CBC w/ auto diff monocytes(ab solute) 0.9 x10e3 /uL 0.1-0. 9 Not Available [facility] ([facility]) [address] [facility], [place], [address], 06/30/2019 06:12:39 06/29/1906/30/2019 CBC w/ auto diff eos (absolute) 0.1 x10e3 /uL 0.0-0. 4 Not Available [facility] ([facility]) [address] [facility] [place] [facility], [place], [address], 06/30/2019 06:12:39 06/29/1906/30/2019 CBC w/ auto diff baso (absolute) 0.0 x10e3 /uL 0.0-0. 2 Not Available [facility] ([facility]) [address] [facility] [place] [facility], [place], [address], 06/30/2019 06:12:39 06/29/1906/30/2019 CBC w/ auto diff immature granulocytes 1 % not estab. Not Available [facility] ([facility]) [address] [facility], [place], [address], 06/30/2019 06:12:39 06/29/1906/30/2019 CBC w/ auto diff immature grans (abs) 0.1 x10e3 /uL 0.0-0. 1 Not Available [facility] ([facility]) [address] [facility], [place], [address], 06/30/2019 06:12:39 06/29/1906/30/2019 CBC w/ auto diff NRBC MORPHOLOGY TEACHER Not Available [facility] ([facility]) [address] [facility], [place], [address], 06/30/2019 06:12:39 06/29/1906/30/2019 CBC w/ auto diff hematology comments: MORPHOLOGY TEACHER Not Available [facility] ([facility]) [address] [facility], [place], [address], 06/30/2019 06:12:39 06/29/1906/30/2019 TIBC (tota l iron- petar ng capac ity), serum iron bind.cap.(TI BC) 379 ug/dL 250-45 0 Not Available [facility] ([facility]) [address] [place], [address], 06/30/2019 06:12:39 06/29/19 20 06/30/2019 TIBC (tota l iron- petar ng capac ity), serum UIBC 279 ug/dL 131-42 5 Not Available [facility] ([facility]) [address] [place], [address], 06/30/2019 06:12:39 06/29/19 20 06/30/2019 TIBC (tota l iron- petar ng capac ity), serum iron 100 ug/dL 27-159 Not Available [facility] ([facility]) [address] [place], [address], 06/30/2019 06:12:39 06/29/19 20 06/30/2019 TIBC (tota l iron- petar ng capac ity), serum iron saturation 26 % 15-55 Not Available [facility]) [address] [place], [address], 06/30/2019 06:12:39 06/29/19 20 06/30/2019 HCG, intac t + beta subun it, quant , serum or plasm a HCG,beta subunit,qnt, serum <1 mIU/m L Femal e (Non- pregn ant) 0 - 5 (Post menop ausal ) 0 - 8 Femal e (Preg nant) Weeks of Gesta tion 3 6 - 71 4 10 - 750 5 237 - 9411 6 984 - 38251 7 1250 -5272 63 8 82424 -4622 71 9 42405 -4243 10 10 79592 -1344 77 12 09261 -8788 12 14 11478 - 85771 15 10351 - 59281 16 8532 - 98888 17 4942 - 01586 18 6785 - 92196 Shasta ECLIA metho dolog y Not Available [facility] ([facility]) [address] [facility] [place] [facility], [place], [address], 06/30/2019 06:12:40 06/29/19 20 06/30/2019 naeem tin, serum or plasm a ferritin, serum 197 NG/mL 15-77 above high normal Not Available [facility] ([facility]) [address] [place] [address], [address], 06/30/2019 06:12:41 06/29/19 20 07/01/2019 bacte rial vagin osis + vagin itis panel , vagin al atopobium vaginae Modera te - 1 score Not Available [facility] ([facility]) [address] [place], [address], 07/02/2019 15:07:52 06/29/19 20 07/01/2019 bacte rial vagin osis + vagin itis panel , vagin al bvab 2 Modera te - 1 score Not Available [facility] ([facility]) [address] [place], [address], 07/02/2019 15:07:52 06/29/19 20 07/01/2019 bacte rial vagin osis + vagin itis panel , vagin al megasphaera 1 High - 2 score abnormal Calcu late total score by emily g the 3 indiv idual bacte rial vagin osis (BV) marke r score s toget her. Total score is inter prete d as follo ws: Total score 0-1: Indic ates the absen ce of BV. Total score 2: Indet ermin ate for BV. Addit ional clini beba data shoul d be evalu ated to estab claudia a diagn osis. Total score 3-6: Indic ates the prese nce of BV. This test was devel oped and its perfo rmanc e praveena cteri stics deter mined by [facility]. It has not been clear ed or appro tremaine by the Food and Drug Admin istra tion. The FDA has deter mined that such clear ance or appro nitza is not neces kaylen. Not Available [facility] ([facility]) [address] [facility], [place], [address], 07/02/2019 15:07:52 06/29/19 20 07/02/2019 bacte rial vagin osis + vagin itis panel , vagin al lluvia albicans, MICK Positi ve negati ve abnormal Not Available [facility] ([facility]) [address] [facility], [place], [address], 07/02/2019 15:07:52 06/29/19 20 07/02/2019 bacte rial vagin osis + vagin itis panel , vagin al lluvia glabrata, MICK Negati ve negati ve Not Available [facility] ([facility]) [address] [facility], [place], [address], 07/02/2019 15:07:52 06/29/19 20 07/02/2019 bacte rial vagin osis + vagin itis panel , vagin al trich vag by MICK Negati ve negati ve Not Available [facility] ([facility]) [address] [place], [address], 07/02/2019 15:07:52 06/29/19 20 07/02/2019 bacte rial vagin osis + vagin itis panel , vagin al chlamydia trachomatis, MICK Negati ve negati ve Not Available [facility] ([facility]) [address] [place], [address], 07/02/2019 15:07:52 06/29/19 20 07/02/2019 bacte rial vagin osis + vagin itis panel , vagin al neisseria gonorrhoeae, MICK Negati ve negati ve Not Available [facility] ([facility]) [address] [place], [address], 07/02/2019 15:07:52 06/30/19 20 07/01/2019 CBC w/ auto diff WBC 6.5 x10e3 /uL 3.4-10 .8 Not Available [facility] ([facility]) [address] [facility], [place], [address], 07/01/2019 11:08:09 06/30/19 20 07/01/2019 CBC w/ auto diff RBC 4.62 x10e6 /uL 3.77-5 .28 Not Available [facility] ([facility]) [address] [facility], [place], [address], 07/01/2019 11:08:09 06/30/19 20 07/01/2019 CBC w/ auto diff hemoglobin 14.3 g/dL 11.1-1 5.9 Not Available [facility] ([facility]) [address] [facility], [place], [address], 07/01/2019 11:08:09 06/30/19 20 07/01/2019 CBC w/ auto diff hematocrit 43.5 % 34.0-4 6.6 Not Available [facility] ([facility]) [address] [facility], [place], [address], 07/01/2019 11:08:09 06/30/19 20 07/01/2019 CBC w/ auto diff MCV 94 fL 79-97 Not Available [facility] ([facility]) [address] [facility], [place], [address], 07/01/2019 11:08:09 06/30/19 20 07/01/2019 CBC w/ auto diff MCH 31.0 pg 26.6-3 3.0 Not Available [facility] ([facility]) [address] [facility], [place], [address], 07/01/2019 11:08:09 06/30/19 20 07/01/2019 CBC w/ auto diff MCHC 32.9 g/dL 31.5-3 5.7 Not Available [facility] ([facility]) [address] [place], [address], 07/01/2019 11:08:09 06/30/19 20 07/01/2019 CBC w/ auto diff RDW 11.9 % 11.7-1 5.4 Not Available [facility] ([facility]) [address] [facility] [place] [facility], [place], [address], 07/01/2019 11:08:09 06/30/19 20 07/01/2019 CBC w/ auto diff platelets 303 x10e3 /uL 150-45 0 Not Available [facility] ([facility]) [address] [facility], [place], [address], 07/01/2019 11:08:09 06/30/19 20 07/01/2019 CBC w/ auto diff neutrophils 57 % not estab. Not Available [facility] ([facility]) [address] [facility], [place], [address], 07/01/2019 11:08:09 06/30/19 20 07/01/2019 CBC w/ auto diff lymphs 32 % not estab. Not Available [facility] ([facility]) [address] [facility], [place], [address], 07/01/2019 11:08:09 06/30/19 20 07/01/2019 CBC w/ auto diff monocytes 8 % not estab. Not Available [facility] ([facility]) [address] [facility], [place], [address], 07/01/2019 11:08:09 06/30/19 20 07/01/2019 CBC w/ auto diff eos 1 % not estab. Not Available [facility] ([facility]) [address] [facility], [place], [address], 07/01/2019 11:08:09 06/30/19 20 07/01/2019 CBC w/ auto diff basos 1 % not estab. Not Available [facility] ([facility]) [address] [facility], [place], [address], 07/01/2019 11:08:09 06/30/19 20 07/01/2019 CBC w/ auto diff immature cells MORPHOLOGY TEACHER Not Available [facility] ([facility]) [address] [place], [address], 07/01/2019 11:08:09 06/30/19 20 07/01/2019 CBC w/ auto diff neutrophils (absolute) 3.7 x10e3 /uL 1.4-7. 0 Not Available [facility] ([facility]) [address] [facility] [place], [address], 07/01/2019 11:08:09 06/30/19 20 07/01/2019 CBC w/ auto diff lymphs (absolute) 2.1 x10e3 /uL 0.7-3. 1 Not Available [facility] ([facility]) [address] [facility], [place], [address], 07/01/2019 11:08:09 06/30/19 20 07/01/2019 CBC w/ auto diff monocytes(ab solute) 0.5 x10e3 /uL 0.1-0. 9 Not Available [facility] ([facility]) [address] [place], [address], 07/01/2019 11:08:09 06/30/19 20 07/01/2019 CBC w/ auto diff eos (absolute) 0.1 x10e3 /uL 0.0-0. 4 Not Available [facility] ([facility]) [address] [place], [address], 07/01/2019 11:08:09 06/30/19 20 07/01/2019 CBC w/ auto diff baso (absolute) 0.0 x10e3 /uL 0.0-0. 2 Not Available [facility] ([facility]) [address] [place], [address], 07/01/2019 11:08:09 06/30/19 20 07/01/2019 CBC w/ auto diff immature granulocytes 1 % not estab. Not Available [facility] ([facility]) [address] [place], [address], 07/01/2019 11:08:09 06/30/19 20 07/01/2019 CBC w/ auto diff immature grans (abs) 0.0 x10e3 /uL 0.0-0. 1 Not Available [facility] ([facility]) [address] [place], [address], 07/01/2019 11:08:09 06/30/19 20 07/01/2019 CBC w/ auto diff NRBC MORPHOLOGY TEACHER Not Available [facility] ([facility]) [address] [place], [address], 07/01/2019 11:08:09 06/30/19 20 07/01/2019 CBC w/ auto diff hematology comments: MORPHOLOGY TEACHER Not Available [facility] ([facility]) [address] [place], [address], 07/01/2019 11:08:09 06/30/19 20 07/01/2019 CMP, serum or plasm a glucose 91 mg/dL 65-99 Not Available [facility] ([facility]) [address] [place], [address], 07/01/2019 11:08:10 06/30/19 20 07/01/2019 CMP, serum or plasm a BUN 14 mg/dL 6-20 Not Available [facility] ([facility]) [address] [place], [address], 07/01/2019 11:08:10 06/30/19 20 07/01/2019 CMP, serum or plasm a creatinine 0.74 mg/dL 0.57-1 .00 Not Available [facility] ([facility]) [address] [place], [address], 07/01/2019 11:08:10 06/30/19 20 07/01/2019 CMP, serum or plasm a eGFR if nonafricn AM 118 mL/mi n/1.7 3 >59 Not Available [facility] ([facility]) [address] [place], [address], 07/01/2019 11:08:10 06/30/19 20 07/01/2019 CMP, serum or plasm a eGFR if africn AM 136 mL/mi n/1.7 3 >59 Not Available [facility] ([facility]) [address] [facility] [place], [address], 07/01/2019 11:08:10 06/30/19 20 07/01/2019 CMP, serum or plasm a BUN/creatini ne ratio 19 9-23 Not Available [facility] ([facility]) [address] [facility] [place], [address], 07/01/2019 11:08:10 06/30/19 20 07/01/2019 CMP, serum or plasm a sodium 140 mmol/ L 134-14 4 Not Available [facility] ([facility]) [address] [place], [address], 07/01/2019 11:08:10 06/30/19 20 07/01/2019 CMP, serum or plasm a potassium 4.1 mmol/ L 3.5-5. 2 Not Available [facility] ([facility]) [address] [place], [address], 07/01/2019 11:08:10 06/30/19 20 07/01/2019 CMP, serum or plasm a chloride 99 mmol/ L 96-106 Not Available [facility] ([facility]) [address] [place], [address], 07/01/2019 11:08:10 06/30/19 20 07/01/2019 CMP, serum or plasm a carbon dioxide, total 23 mmol/ L 20-29 Not Available [facility] ([facility]) [address] [place], [address], 07/01/2019 11:08:10 06/30/19 20 07/01/2019 CMP, serum or plasm a calcium 9.7 mg/dL 8.7-10 .2 Not Available [facility] ([facility]) [address] [facility] [place], [address], 07/01/2019 11:08:10 06/30/19 20 07/01/2019 CMP, serum or plasm a protein, total 7.1 g/dL 6.0-8. 5 Not Available [facility] ([facility]) [address] [facility] [place], [address], 07/01/2019 11:08:10 06/30/19 20 07/01/2019 CMP, serum or plasm a albumin 4.8 g/dL 3.9-5. 0 Not Available [facility] ([facility]) [address] [facility] [place], [address], 07/01/2019 11:08:10 06/30/19 20 07/01/2019 CMP, serum or plasm a globulin, total 2.3 g/dL 1.5-4. 5 Not Available [facility] ([facility]) [address] [facility] [place], [address], 07/01/2019 11:08:10 06/30/19 20 07/01/2019 CMP, serum or plasm a A/G ratio 2.1 1.2-2. 2 Not Available [facility] ([facility]) [address] [facility] [place], [address], 07/01/2019 11:08:10 06/30/1907/01/2019 CMP, serum or plasm a bilirubin, total 0.8 mg/dL 0.0-1. 2 Not Available [facility] ([facility]) [address] [facility] [place], [address], 07/01/2019 11:08:10 06/30/1907/01/2019 CMP, serum or plasm a alkaline phosphatase 85 IU/L 39-117 Not Available [facility]) [address] [facility] [place], [address], 07/01/2019 11:08:10 06/30/19 20 07/01/2019 CMP, serum or plasm a AST (SGOT) 19 IU/L 0-40 Not Available [facility] ([facility]) [address] [place], [address], 07/01/2019 11:08:10 06/30/19 20 07/01/2019 CMP, serum or plasm a ALT (SGPT) 17 IU/L 0-32 Not Available [facility] ([facility]) [address] [place], [address], 07/01/2019 11:08:10 06/30/19 20 07/01/2019 iron + total iron- petar ng capac ity (TIBC ), serum iron bind.cap.(TI BC) 368 ug/dL 250-45 0 Not Available [facility] ([facility]) [address] [place], [address], 07/01/2019 11:08:10 06/30/19 20 07/01/2019 iron + total iron- petar ng capac ity (TIBC ), serum UIBC 234 ug/dL 131-42 5 Not Available [facility] ([facility]) [address] [place], [address], 07/01/2019 11:08:10 06/30/19 20 07/01/2019 iron + total iron- petar ng capac ity (TIBC ), serum iron 134 ug/dL 27-159 Not Available [facility] ([facility]) [address] [place], [address], 07/01/2019 11:08:10 06/30/19 20 07/01/2019 iron + total iron- petar ng capac ity (TIBC ), serum iron saturation 36 % 15-55 Not Available [facility] ([facility]) [address] [place], [address], 07/01/2019 11:08:10 06/30/19 20 07/01/2019 hepat itis panel (A+B+ C), acute , serum hep A Ab, IgM Negati ve negati ve Not Available [facility] ([facility]) [address] [place], [address], 07/01/2019 11:08:11 06/30/19 20 07/01/2019 hepat itis panel (A+B+ C), acute , serum HBsAg screen Negati ve negati ve Not Available [facility] ([facility]) [address] [place], [address], 07/01/2019 11:08:11 06/30/19 20 07/01/2019 hepat itis panel (A+B+ C), acute , serum hep B core Ab, IgM Negati ve negati ve Not Available [facility] ([facility]) [address] [facility] [place], [address], 07/01/2019 11:08:11 06/30/19 20 07/01/2019 hepat itis panel (A+B+ C), acute , serum hep C virus Ab <0.1 s/co_ ratio 0.0-0. 9 Negat jax: < 0.8 Indet ermin ate: 0.8 - 0.9 Posit jax: > 0.9 The CDC recom mends that a posit jax HCV antib mague resul t be follo wed up with a HCV Nucle ic Acid Ampli ficat ion test (5507 13). Not Available [facility] ([facility]) [address] [facility] [place] [facility], [place], [address], 07/01/2019 11:08:11 06/30/19 20 07/01/2019 HbA1c (hemo globi n A1c), blood hemoglobin A1C 4.7 % 4.8-5. 6 below low normal Predi abete s: 5.7 - 6.4 Diabe indu: >6.4 Glyce angie contr ol for adult s with diabe indu: <7.0 Not Available [facility] ([facility]) [address] [facility], [place], [address], 07/01/2019 11:08:12 06/30/19 20 07/01/2019 HOME (anti nucle ar antib odies ) scree n, serum HOME direct Negati ve negati ve Not Available [facility] ([facility]) [address] [facility] [place], [address], 07/01/2019 11:08:12 06/30/19 20 07/01/2019 naeem tin, serum or plasm a ferritin, serum 228 NG/mL 15-77 above high normal Not Available [facility] ([facility]) [address] [facility] [place], [address], 07/01/2019 11:08:13 09/16/19 20 09/16/2019 tissu e trans gluta jenny e Ab, serum comment Commen t Not Available [facility] [address] [place] [address], [id number], 09/29/2019 09:12:55 09/16/1909/29/2019 tissu e trans gluta jenny e Ab, serum tragl IgG <1.2 U/mL <6.0 Refer ence Range Negat jax < 6.0 U/mL Weak Posit jax 6.0 - 9.0 U/mL Posit jax > 9.0 U/mL Not Available [facility] [place], [address], 09/29/2019 09:12:55 09/16/1909/29/2019 tissu e trans gluta jenny e Ab, serum tragl IgM <1.0 U/mL <9.6 Refer ence Range Negat jax < 9.6 U/mL Equiv ocal 9.6 - 12.4 U/mL Posit jax > 12.4 U/mL The perfo rmanc e praveena cteri stics of the Trans gluta jenny e IgM assay was valid ated by [employer]. The FDA has not appro tremaine or clear ed this test. The resul ts of this assay can be used for clini beba diagn osis witho ut FDA appro nitza. [employer] is a CLIA certi fied, CAP accre dited labor atory for perfo rming high compl exity assay s such as this one. Testi ng Perfo rmed at: [facility] [address] [facility], [place] [address] Not Available [facility] [address] [facility], [place], [address], 09/29/2019 09:12:55 09/16/1909/29/2019 tissu e trans gluta jenny e Ab, serum tragl IgA <1.2 U/mL <4.0 Refer ence Range Negat jax < 4.0 U/mL Weak Posit jax 4.0 - 10.0 U/mL Posit jax > 10.0 U/mL Not Available [facility] [address] [facility], [place], [address], 09/29/2019 09:12:55 07/06/19 20 07/06/2019 US, pelvi s, trans abdom inal + trans vagin al No observ ation record ed. [facility] (Imaging) [address] [place], [address], 07/07/2019 09:43:49 02/26/20 24 02/26/2024 CT, abdom en + pelvi s, w/ contr ast No observ ation record ed. [email or web address] [address] [place] [address], [address], 03/04/2024 12:12:46 09/18/19 25 09/17/2024 US, breas t No observ ation record ed. [email or web address] [address], [address], 09/18/2024 06:32:46 Result Notes None recorded. Problems Name Problem SNOMED Code Status Onset Date Resolution Date Notes Provider Name and Address Organization Details Recorded Time Serum ferritin above reference range 075267454 Active 2019 CRISTOFER POE Attn: Gricel hawkins,[address] [facility], [place], [address], [place] [facility] 0 13:34:05 Chronic pelvic pain of female 066242997 Active 2019 CRISTOFER POE Attn: Gricel hawkins,[address] [facility], [place], [address], [place] [facility] 0 14:12:39 Obesity 397259378 Active 2023 CRISTOFER Singh Attn: Gricel hawkins,[address] [facility], [place], [address], [place] [facility] 4 16:51:27 Body mass index 25-29 - overweight 812460207 Active 2023 Mariana Lara [place], [place] [facility] 4 14:05:25 Dysfunction of bilateral eustachian tubes 0825431856803 100 Active 2023 CRISTOFER Singh Attn: Gricel hawkins,[address] [facility], [place], [address], [place] [facility] 4 12:06:09 Body mass index 20-24 - normal 793240135 Active 2023 CRISTOFER Singh Attn: Gricel hawkins,[address] [facility], [place], [address], [place] [facility] 4 12:06:29 Problem Notes None recorded. Procedures Surgical History Date Name Laterality Status Provider Name and Address Organization Details Recorded Time Prostatectomy completed Mariana Lara [place] [facility] 08/29/2023 15:59:28 Imaging Results None recorded. Procedure Notes None recorded. Medical Equipment None Reported. Allergies No known drug allergies Medications Name Sig Start Date Stop Date Status Note LastModified by Organization Details LastModified Time methocarb marichuy 500 mg tablet TAKE 1 TABLET BY MOUTH FOUR TIMES DAILY NEEDED FOR MUSCLE SPASMS 08/28 completed Not Available Not Available Not Available ibuprofen 800 mg tablet TAKE 1 TABLET BY MOUTH EVERY 8 HOURS NEEDED FOR PAIN 08/28 completed Not Available Not Available Not Available fluconazo le 150 mg tablet TAKE 1 TABLET BY MOUTH ONE DOSE 08/28 completed Not Available Not Available Not Available metronida zole 0.75 % (37.5 mg/5 gram) vaginal gel INSERT 1 APPLICAT ORFUL VAGINALL Y EVERY DAY AT BEDTIME FOR 5 DAYS 02/05 completed Not Available Not Available Not Available metronida zole 500 mg tablet Take 1 tablet twice a day by oral route as directed for 7 days. 08/28 completed Not Available Not Available Not Available sulfameth oxazole 800 mg-trimet hoprim 160 mg tablet TAKE 1 TABLET BY MOUTH EVERY 12 HOURS 11/27 completed Not Available Not Available Not Available triamcino lone acetonide 0.1 % topical cream APPLY A THIN LAYER TO THE AFFECTED AREA(S) BY TOPICAL ROUTE 2 TIMES PER DAY NEEDED 08/28 completed Not Available Not Available Not Available dextroamp hetamine- amphetami ne ER 20 mg 24hr capsule,e xtend release TAKE 1 CAPSULE BY MOUTH EVERY DAY 08/28 completed Not Available Not Available Not Available dextroamp hetamine- amphetami ne 20 mg tablet Take 1 tablet every day by oral route for 30 days. active Not Available Not Available No t Available dextroamp hetamine- amphetami ne 15 mg tablet TAKE 1 TABLET BY MOUTH TWICE A DAY FOR 30 DAYS 02/05 completed Not Available Not Available Not Available ergocalci ferol (vitamin D2) 1,250 mcg (50,000 unit) capsule TAKE 1 CAPSULE EVERY WEEK BY ORAL ROUTE. 08/28 completed Not Available Not Available Not Available dextroamp hetamine- amphetami ne ER 30 mg 24hr capsule,e xtend release TAKE 1 CAPSULE BY MOUTH EVERY DAY IN THE MORNING FOR 30 DAYS 02/05 completed will be switchin g Not Available Not Available Not Available ondansetr on 4 mg disintegr ating tablet LET 1 TABLET DISSOLVE ON TOP OF THE TONGUE TWICE A DAY NEEDED 08/28 completed Not Available Not Available Not Available dicyclomi ne 10 mg capsule TAKE 1 CAPSULE BY MOUTH FOUR TIMES A DAY 08/28 completed Not Available Not Available Not Available dextroamp hetamine- amphetami ne ER 25 mg 24hr capsule,e xtend release 11/27 completed Not Available Not Available Not Available ciproflox acin 0.3 %-dexamet hasone 0.1 % ear drops,cody pension INSTILL 4 DROPS INTO BOTH EAR(S) 2 TIMES PER DAY FOR 7 DAYS 02/05 completed Not Available Not Available Not Available bupropion HCl XL 300 mg 24 hr tablet, extended release TAKE 1 TABLET BY MOUTH EVERY DAY 11/27 completed pt. stopped due to irriatio n Not Available Not Available Not Available bupropion HCl XL 150 mg 24 hr tablet, extended release TAKE 1 TABLET BY MOUTH EVERY DAY 08/28 completed Not Available Not Available Not Available duloxetin e 20 mg capsule,d elayed release Take 1 capsule every day by oral route for 30 days. active Not Available Not Available No t Available Wegovy 2.4 mg/0.75 mL subcutane ous pen injector Inject 2.4 mg every week by subcutan eous route. 02/05 completed Not Available Not Available Not Available Wegovy 1.7 mg/0.75 mL subcutane ous pen injector INJECT 1.7 MG SUBCUTAN EOUSLY ONE TIME PER WEEK active Not Available Not Available No t Available Wegovy 1 mg/0.5 mL subcutane ous pen injector INJECT 1 MG UNDER THE SKIN WEEKLY DIRECTED 11/27 completed Not Available Not Available Not Available Wegovy 0.25 mg/0.5 mL subcutane ous pen injector INJECT 0.25 MG UNDER THE SKIN EVERY WEEK 09/17 completed Not Available Not Available Not Available Wegovy 0.5 mg/0.5 mL subcutane ous pen injector INJECT 0.5 MG SUBCUTAN EOUSLY EVERY WEEK 11/10 completed Not Available Not Available Not Available Vitals Date Recorded Body height Body mass index (BMI) Body mass index (BMI) [Percentile] Per age and sex Body weight Heart rate Body temperature Oxygen saturation Oxygen saturation in Arterial blood by Pulse oximetry Systolic And Diastolic Provider Name and Address Organization Details Last Updated DateTime 0 158.75 cm 33.4 kg/m2 96 % 31100.3 9 g 94 /min 98.8 [degF] 98 % 98 % 104/68 mm[Hg] Rosio Grigsby MA [facility] 0 14:16:49 Date Recorded Respiratory rate Systolic And Diastolic Provider Name and Address Organization Details Last Updated DateTime 08/29/2023 18 /min 120/80 mm[Hg] CRISTOFER Singh Attn: Accounting, [place], [address], [facility] 08/29/2023 14:43:33 Date Recorded Body weight Oxygen saturation Oxygen saturation in Arterial blood by Pulse oximetry Heart rate Body mass index (BMI) Body height Systolic And Diastolic Provider Name and Address Organization Details Last Updated DateTime 4 74113.9 4 g 99 % 99 % 133 /min 33.1 kg/m2 161.93 cm 112/72 mm[Hg] Mariana Lara MA [facility] 4 14:20:58 Date Recorded Systolic And Diastolic Provider Name and Address Organization Details Last Updated DateTime 11/28/2023 120/80 mm[Hg] CRISTOFER Singh Attn: Accounting,[address] [place], [address], [facility] 11/28/2023 14:24:13 Date Recorded Body height Body mass index (BMI) Body weight Respiratory rate Oxygen saturation Oxygen saturation in Arterial blood by Pulse oximetry Heart rate Systolic And Diastolic Provider Name and Address Organization Details Last Updated DateTime 4 161.93 cm 27 kg/m2 24840.5 5 g 18 /min 99 % 99 % 88 /min 126/82 mm[Hg] Mariana Lara MA [facility] 4 14:08:44 Date Recorded Systolic And Diastolic Provider Name and Address Organization Details Last Updated DateTime 02/06/2024 110/80 mm[Hg] CRISTOFER Singh Attn: Accounting,[address] [place], [address], [facility] 02/06/2024 13:21:28 Date Recorded Body height Body mass index (BMI) Body weight Respiratory rate Provider Name and Address Organization Details Last Updated DateTime 02/06/2024 161.93 cm 24.2 kg/m2 86315.93 g 18 /min Mariana Lara MA [facility] 02/06/2024 12:50:14 Social History Question Answer Notes LastModified by Organizat ion Details LastModified Time Tobacco Smoking Status Never Smoker FAVIAN Kelley, [facility] 06/29/2019 14:19:34 Do You Have An Advance Directive? No Information not available 08/29/2023 Are You Blind Or Do You Have Difficulty Seeing? No Glasses -low Information not available 08/29/2023 What Is Your Level Of Caffeine Consumption? Occasional Tea Information not available 08/29/2023 In The 14 Days Before Symptom Onset, Have You Had Close Contact With A Laboratory-confir med COVID-19 While That Case Was Ill? No Information not available 08/28/2023 In The 14 Days Before Symptom Onset, Have You Had Close Contact With A Person Who Is Under Investigation For COVID-19 While That Person Was Ill? No Information not available 08/28/2023 Have You Been To An Area Known To Be High Risk For COVID-19? No Information not available 08/28/2023 Are You Deaf Or Do You Have Serious Difficulty Hearing? No Information not available 08/29/2023 What Type Of Diet Are You Following? REGULAR Information not available 06/29/2019 Are There Any Guns Present In Your Home? No Information not available 08/29/2023 Live Alone Or With Others? With Others Information not available 06/29/2019 Do You Have A High School Diploma Or Higher Education? Yes Information not available 08/29/2023 Do You Sometimes Have To Miss Your Medical Appointments Due To Difficult Getting Transportation? No Information not available 08/29/2023 Do You Feel Unfairly Treated Due To Things Such As Race, Age, Gender, Disability Or Some Other Reason? No Information not available 08/29/2023 Do You Feel Physically And Emotionally Safe While Living At Home? Yes Information not available 08/29/2023 Do You Feel Physically And Emotionally Safe In Your Neighborhood Or Other Public Places? Yes Information not available 08/29/2023 What Was The Date Of Your Most Recent Tobacco Screening? 02/06/2024 Information not available 02/06/2024 How Many Children Do You Have? 0 Information not available 06/29/2019 Do You Use Protection During Sex? No Information not available 06/29/2019 What Is Your Relationship Status? Information not available 11/28/2023 Do You Use Your Seat Belt Or Car Seat Routinely? Yes Information not available 08/28/2023 Are You Sexually Active? Yes Information not available 06/29/2019 Do You Have Smoke And Carbon Monoxide Detectors In Your Home? Yes Information not available 08/28/2023 How Much Tobacco Do You Smoke? No Information not available 06/29/2019 Do You Use Sunscreen Routinely? No Information not available 08/29/2023 Has Tobacco Cessation Counseling Been Provided? No Information not available 11/28/2023 On What Date Was Tobacco Cessation Counseling Provided? 02/06/2024 Information not available 02/06/2024 Sex: Female Functional Status Question Answer Note LastModified by Organizat ion Details LastModified Time Do you use any illicit or recreational drugs? No Information not available 08/29/2023 Do you or have you ever used any other forms of tobacco or nicotine? No Information not available 08/29/2023 What is your level of alcohol consumption? Occasional Information not available 06/29/2019 Do you or have you ever used smokeless tobacco? Never used smokeless tobacco Information not available 06/29/2019 Are you able to care for yourself? Yes Information not available 06/29/2019 Do you or have you ever used e-cigarettes or vape? Never used electronic cigarettes Information not available 06/29/2019 What is your exercise level? Occasional Information not available 11/28/2023 Mental Status None recorded. Family History Relationship Description Onset Age of this Age Resolved Age Notes LastModified by Organization Details LastModified Time Mother Cyst of uterus [email or web address] Not available 2019 14:19:25 Sister Cyst of uterus [email or web address] Not available 2019 14:19:25 Father Hypertensive disorder [email or web address] Not available 2023 16:00:28 Medical History Condition Response Coronary Artery Disease N Other N High Blood Pressure Y Atrial Fibrillation N Kidney or Bladder Problems N Thyroid Problems N GI Problems N Depression Y COPD N Blood Clots N Skin Problems N Anemia N Heart Attack (MD) N Anxiety Disorder N Diabetes N Muscle, Joint, or Bone Problems N Seizures/Epilepsy N Acid Reflux (GERD) N Cancer N Stroke N Asthma N Allergies N High Cholesterol N Hepatitis N Liver Disease N Headaches N Heart Failure N Osteoporosis N Gynecological History Statement/Question Response Flow Moderate Date of LMP 01/17/2024 Menses Monthly N STIs/STDs Y Duration of Flow (days) 5 Age at Menarche 10 Current Control Method Other LMP Approximate Obstetrics History GPAL:G 2 P 2 0 0 2 Type Value Full Term 2 Induced 0 Spontaneous 0 Premature 0 Living 2 Total 2 Immunizations Vaccine Type Date Status Note Provider Nam e and Address Organization Details Recorded Time Hib, unspecified formulation 1 completed FAVIAN [place] [facility] 02/05/2024 16:12:55 Hib, unspecified formulation 3 completed Mariana [place] [facility] 02/05/2024 16:12:55 Hib, unspecified formulation 0 completed Mariana [place] [facility] 02/05/2024 16:12:55 Hib, unspecified formulation 0 completed Mariana [place] [facility] 02/05/2024 16:12:55 IPV 3 completed [place] [facility] 02/05/2024 16:12:55 IPV 3 completed [place] [facility] 02/05/2024 16:12:55 IPV 5 completed [place] [facility] 02/05/2024 16:12:55 IPV 0 completed Mar[place] [facility] 02/05/2024 16:12:55 IPV 0 completed [place] [facility] 02/05/2024 16:12:55 Influenza, live, trivalent, intranasal 3 completed Mar[place] [facility] 02/05/2024 16:12:55 MMR 3 completed Mar[place] [facility] 02/05/2024 16:12:55 MMR 5 completed Mar[place] [facility] 02/05/2024 16:12:55 pneumococcal conjugate PCV 7 3 completed Mar[place] [facility] 02/05/2024 16:12:55 pneumococcal conjugate PCV 7 3 completed [place] [facility] 02/05/2024 16:12:55 Tdap 3 completed [place] [facility] 02/05/2024 16:12:55 Tdap 1 completed Mar[place] [facility] 02/05/2024 16:12:55 Tdap 4 completed [place] [facility] 02/05/2024 16:12:55 varicella 4 completed Mar[place] [facility] 02/05/2024 16:12:55 varicella 4 completed Mar[place] [facility] 02/05/2024 16:12:55 HPV, quadrivalent 4 completed Mar[place] [facility] 02/05/2024 16:12:55 HPV, quadrivalent 0 completed Mar[place] [facility] 02/05/2024 16:12:55 HPV, quadrivalent 4 completed Mar[place] [facility] 02/05/2024 16:12:55 Hep B, adolescent or pediatric 1 completed Mar[place] [facility] 02/05/2024 16:12:55 Hep B, adolescent or pediatric 0 completed [place] [facility] 02/05/2024 16:12:55 Hep B, adolescent or pediatric 0 completed Mar[place] [facility] 02/05/2024 16:12:55 Hep A, ped/adol, 2 dose 4 completed [place] [facility] 02/05/2024 16:12:55 Hep A, ped/adol, 2 dose 5 completed [place] [facility] 02/05/2024 16:12:55 meningococcal MCV4P 8 completed FAVIAN [place] [facility] 02/05/2024 16:12:55 DTaP 1 completed [place] [facility] 02/05/2024 16:12:55 DTaP 3 completed [place] [facility] 02/05/2024 16:12:55 DTaP 0 [place] FAV[place] [facility] 02/05/2024 16:12:55 DTaP 0 completed Mar[place] [facility] 02/05/2024 16:12:55 DTaP, 5 pertussis antigens 5 completed [place]AV[place] [facility] 02/05/2024 16:12:55 Influenza, split virus, quadrivalent, PF 3 completed Mar[place] [facility] 02/05/2024 16:12:55 Past Encounters Encounter ID Performer Location Encounter Start Date Encounter Closed Date Diagnosis/Indication Diagnosis SNOMED-CT Code Diagnosis ICD10 Code Diagnosis Note [id number] CRISTOFER POE (Adult Med) [address] [place] [address] 06/29/2019 13:48:30 06/30/2019 09:51:24 Gynecologic examination 69795367 Z01.419 Complainin g of intermitte nt pelvic pain and dyspareuni a x 9-10 months. She went to OBGYN a couple months ago and no pelvic exam was completed. She then went to urgent care, pelvic exam completed and no abnormalit ies. A couple weeks ago, she palpated her own cervix and felt small bumps present on her cervix.She recently started having intercours e again with an old partner.Ad mits to hx of chlamydia and recurrent BV.On PE: mild pain with insertion of speculum, cervical inflammati on with cysts present, mild cervical discomfort with bimanual exam- will check nuswab to rule out infections Pain in pelvis 82256878 R10.2 Complainin g of intermitte nt pelvic pain and dyspareuni a x 9-10 months.A couple weeks ago, she palpated her own cervix and felt small bumps present on her cervix.She recently started having intercours e again with an old partner.Ad mits to hx of chlamydia and recurrent BV On PE: mild pain with insertion of speculum, cervical inflammati on with cysts present, mild cervical discomfort with bimanual exam - will check nuswab to rule out infections - will order US of pelvis- will order bHCG to rule out ectopic Cervicitis with Nabothian cyst 675256754 N72 On PE: Inflammati on present with 3 small nabothian cysts above cervical os, mild discomfort during bimanual exam- provided her with informatio n regarding small cervical cysts Menorrhagia 980672728 N9 2.0 Used to be on the depo shot, last injection was about 1 year ago. It took her many months to get her menstrual cycle back and now complainin g of bleeding more frequently (almost twice per month) and more heavily. She is not interested in restarting control at this time. Admits to headaches/ migraines over the past few months. Admits to a history of iron-def. anemia before.- will check CBC and iron studies [id number] Quinton Silver MD [facility] [place] [facility] [address] [place] [address] 08/29/2023 13:57:40 09/23/2023 15:58:02 Adult health examination 903681282 Z00.00 new pt well exam completed. labs ordered fasting. Body mass index 30+ - obesity 250046755 Z68.33 start wegovy injectable therapy. no personal or family hx of Medullary thyroid cancer or MEN conditions . Cholesterol screening 27 8718509 Z13.220 fasting lipids due. Long-term drug therapy 994088179 Z79.899 cmp, cbc and b12, folate labs are due Thyroid di sorder screening 278269410 Z13.29 thyroid panel due Diabetes m ellitus screening 309595297 Z13.1 a1c screening due Nipple infection 0077397 04 N61.0 empiric tx with bactrim DS bid x 10 days for suspected low grade nipple infection that did not resolve from breast feeding. Obesity 510976614 E66.8 discussed healthy diet, exercise, controllin g carbohydra indu and added sugars in the diet [id number] Quinton Silver MD [facility] [employer] [address] [place] [id number] 11/28/2023 13:46:17 11/28/2023 15:30:00 Body mass index 25-29 - overweight 770951089 Z68.27 My is 27 Intentiona l weight loss 732564704 R63.8 Patient has lost 35 lb on Wegovy since August. Patient will continue dosing and be mindful of making sure she is getting enough protein and complex carbohydra indu and vegetables in her diet Patient ad vised about weight management 689205939 Z71.3 As above Dysfunctio n of bilateral eustachian tubes 4588284515 964782 H69.93 flonase NS and sudafed PE and take at least 2 weeks to see if this helps equalize pressure in back of ears. [id number] Quinton Silver MD [facility] [employer] [address] [place] [id number] 02/06/2024 12:25:01 02/06/2024 14:47:33 Intentional weight loss 916585780 R63.8 Patient has lost 35 lb on Wegovy since August. Patient will continue dosing and be mindful of making sure she is getting enough protein and complex carbohydra indu and vegetables in her diet. She is going to titrate down in dose every few weeks on 1.7 mg weekly of Wegovy Dysfunctio n of bilateral eustachian tubes 8611542725 076594 H69.93 flonase NS and sudafed PE and take at least 2 weeks to see if this helps equalize pressure in back of ears. Umbilical pain 59170582 R10.[address] of the abdomen and pelvis with contrast to evaluate and confirm umbilical hernia Cholesterol screening 27 7645793 Z13.220 fasting lipids due. Long-term drug therapy 417131672 Z79.899 cmp, cbc and b12, folate labs are due Thyroid di sorder screening 072885692 Z13.29 thyroid panel due Diabetes m ellitus screening 250206574 Z13.1 a1c screening due Body mass index 20-24 - normal 726644222 Z68.24 BMI is 24.2 Health Concerns Section Related Observation LastModified by Organization Detai ls LastModified Time None Recorded Concern Status LastModified by Organization Details LastModified Time None Recorded Advance Directives Directive N: Payers Insurance Date Sequence Insurance Name Policy Number Policy Hartmann Covered Member ID Hartmann Member ID Guarantor Name 01/30/2024 1 [place] [facility] [id number] [facility] 02/24/2024 2 [place] [facility] [employer] [facility] [id number] [facility] 02/24/2024 1 [id number] [id number] [facility] [id number] [facility] Notes Date Note Type Note Provider Name and Address Organization Details Recorded Time 06/29/2019 text/html 18 year old ary bajwa presents today to establish care. Complaining of intermittent pelvic pain and dyspareunia x 9-10 months. She went to OBGYN a couple months ago and no pelvic exam was completed. She then went to urgent care, pelvic exam completed and no abnormalities. A couple weeks ago, she palpated her own cervix and felt small bumps present on her cervix. She recently started having intercourse again with an old partner. Admits to hx of chlamydia and recurrent BV. Denies fever, chills, nausea, vomiting, headaches, chest pain, SOB, abdominal pain, diarrhea, constipation, abnormal vaginal discharge, or dysuria. Used to be on the depo shot, last injection was about 1 year ago. It took her many months to get her menstrual cycle back and now complaining of bleeding more frequently (almost twice per month) and more heavily. She is not interested in restarting control at this time. Admits to headaches/migraine s over the past few months. Admits to a history of iron-def. anemia before. CRISTOFER POE Attn: Accounting, [address] [facility], [place], [address], [facility] 06/29/2019 15:40:19 08/29/2023 text/html Pt. states that before she was she was on wegovy states that she would like to discuss getting back on it or something of that sort to help with weight.States that she has also had nipple hardened now. she states that she isn't breast feeding anymore. Pt. states that she also has been getting skin tags would like to have them checked . CRISTOFER Singh Attn: Accounting, [address] [place], [address], [facility] 09/22/2023 16:52:32 11/28/2023 text/html Patient is here to follow-up on starting Wegovy therapy for weight loss assistance. She has had some improvement and would like to continue. She has noticed it is a little more difficult and slower losing weight this time around. Patient also has some pressure in both of the ears and she would like to have them examined CRISTOFER Singh Attn: Accounting, [address] [place], [address], [facility] 12/21/2023 21:18:42 02/06/2024 text/html Patient is here to follow-up on starting Wegovy therapy for weight loss assistance. She has lost quite a bit of weight and has reached her goal. She is not intending to lose anymore weight. She has seen [facility] for her Eustachian tube dysfunction and is still in need to follow up with them to decide if there is any intervention needed. She would also like to have repeat labs. With all of her weight loss she is noticing a little bit of umbilical discomfort with possible hernia, this has been noticeable since losing over 35 lb. CRISTOFER Singh Attn: Accounting, [address] [place], [address], [facility] 02/22/2024 12:07:16 OBGyn Episode No OBEpisode recorded.
--- OUTSIDE RECORDS SUMMARY | 2024-09-24 15:18 | XMS_ITS | Clinical Summary ---
Author Organization [facility] Address [address] [place] [address] Phone Care Team Providers Care Plastic Installer Name Role Phone Unavailable Primary Care Provider Unavailabl e Allergies No known active allergies Medications No known medications Family History Medical History Relation Name Comments No Known Problems Father No Known Problems Mother Relation Name Status Comments Father Alive Mother Alive Social History Tobacco Use Types Packs/Day Years Used Date Smoking Tobacco: Never Smokeless Tobacco: Never Tobacco Cessation:Counseling Given: Not Answered Alcohol Use Standard Drinks/Week Comments Not Currently 0 (1 standard drink = 0.6 oz pur e alcohol) Sexually Active Control Partners Comments Yes None Male Comments Unknown Sex and Gender Information Value Date Recorded Sex Assigned at Not on file 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
--- OUTSIDE RECORDS SUMMARY | 2024-09-24 15:19 | XMS_ITS | Patient Health Record ---
Author Organization [facility] [employer] Address [address] [facility] [address] [place] [address] Care Team Providers Care Leader Tier Name Role Phone Yulisa Reyes Primary Care Provider Devora Diaz Unavailable [phone] Jacinda Richter Unavailable [phone] Allergies Allergen (clinical drug ingredient) Drug/Non Drug Allergy documented on EMR Reaction Allergy Type Onset Date Status POISON JOHN EXTRACT POISON JOHN EXTRACT (uncoded) Unknown Allergy 05/16/2023 Active hydroxyzine Vistaril Unknown Drug Allergy 05/16/2023 Acti ve Results Component Value Reference Range Notes DRUG MONITOR, MARIJUANA META B, QN, URINE (84067) Reviewed date:03/25/2024 05:43:55 PM Interpretation: Performing Lab:[facility] [address] [facility], [place] [id number] Sachin Sosa, Director - [address] [facility] [facility] Notes/Report: FASTING: NO Marijuana Metabolite 17 <5 ng/mL Marijuana Comments See Gabriel barnard Notes, LDT Notes Notes and Comments This drug testing is for medical treatment only. Analysis was performed as non-forensic testing and these results should be used only by healthcare providers to render diagnosis or treatment, or to monitor progress of medical conditions. Amphetamines Notes: Amphetamine detected is consistent with the use of the drug Amphetamine. Amphetamine can be a prescribed drug and is also a metabolite of methamphetamine. Marijuana Notes: Marijuana Metabolite detected is consistent with exposure to Marijuana (THC) and/or hemp derived products. Some jurisdictions do not include hemp within the definition of Marijuana. LDT Notes: Confirmation tests were developed and their analytical performance characteristics have been determined by [facility]. It has not been cleared or approved by the FDA. This assay has been validated pursuant to the CLIA regulations and is used for clinical purposes. Healthcare Providers needing Interpretation assistance, please contact us at [phone] ( ) M-F, 8am to 10pm EST DRUG MONITOR,AMPHETAMINE, W/ DL, QN URINE ([id number]) Reviewed date:03/25/2024 05:44:04 PM Interpretation: Performing Lab:KATHY, [facility] [address], [id number] Sachin Sosa Notes/Report: FASTING: NO Amphetamine 2436 <250 ng/mL Methamphetamine NEGATIVE <250 ng/mL Amphetamines Comments See Am phetamines Notes, LDT Notes UDT Reviewed date:02/26/2024 03:42:37 PM Interpretation: Performing Lab: Notes/Report: THC NEG 0 - 50 ng/ml Cocaine NEG 0 - 300 ng/ml Amphetamine POS 0 - 1000 ng/ml Buprenorphine (BUP) NEG 0 - 10 ng/ml Secobarbital (Bar) NEG 0 - 300 ng/ml Oxazepam (BZO) NEG 0 - 300 ng/ml 8-ckpqdzjaai-8,7-xokphmue-5, 3-dipheny lpyrrolidine (EDDP) NEG 0 - 300 ng/ml Methamphetamine (MET) NEG 0 - 1000 ng/ml Methylenedioxymethamphetamine (MDMA) NEG 0 - 500 ng/ml Morphine (MOP 300/HYR5546) NEG 0 - 300 ng/ml Methadone (MTD) NEG 0 - 300 ng/ml Phencyclidine (PCP) NEG 0 - 25 ng/ml Nortriptyline (TCA) NEG 0 - 1000 ng/ml Oxycodone NEG 0 - 300 ng/ml x NEG 0 - 300 ng/ml UDT Reviewed date:12/27/2023 03:14:31 PM Interpretation: Performing Lab: Notes/Report: THC n 0 - 50 ng/ml Cocaine n 0 - 300 ng/ml Amphetamine p 0 - 1000 ng/ml Buprenorphine (BUP) n 0 - 10 ng/ml Secobarbital (Bar) n 0 - 300 ng/ml Oxazepam (BZO) n 0 - 300 ng/ml 1-qefuxdwmzc-0,1-bpjbwyrp-9, 3-dipheny lpyrrolidine (EDDP) n 0 - 300 ng/ml Methamphetamine (MET) n 0 - 1000 ng/ml Methylenedioxymethamphetamine (MDMA) n 0 - 500 ng/ml Morphine (MOP 300/FIL1389) n 0 - 300 ng/ml Methadone (MTD) n 0 - 300 ng/ml Phencyclidine (PCP) n 0 - 25 ng/ml Nortriptyline (TCA) n 0 - 1000 ng/ml Oxycodone n 0 - 300 ng/ml x n 0 - 300 ng/ml Reason For Referral No Information Medications Medication SIG (Take, Route, Frequency, Duration) Notes Start Date End Date Status buPROPion HCl ER (XL) 150 MG 1 tablet in the morning Orally Once a day; Duration: 90 days Active Amphetamine-Dextroamphetam ine 20 MG Oral; Duration: 30 Days BID Acti ve Social History Tobacco Use: Social History Observation Description Date Details (start date - stop date) Never Smoker NA - NA Sex Assigned At : Social History Observation Description Sex Assigned At Female Tobacco Control (Standard) Question Answer Notes Tobacco use: Nonsmoker Problems Problem Type SNOMED Code ICD Code Onset Dates Problem Status W/U Status Risk Notes Problem Severe recurrent major depression without psychotic features (38847154) Major depressive disorder, recurrent severe without psychotic features (F33.2) Active confirmed Problem Generalized anxiety disorder (40104018) MO (generalized anxiety disorder) (F41.1) Active confirmed Problem Mild recurrent major depression (50851198) MDD (major depressive disorder), recurrent episode, mild (F33.0) Active confirmed Problem Attention deficit hyperactivity disorder (933699441) Attention deficit hyperactivity disorder (ADHD), combined type (F90.2) Active confirmed Vital Signs Heart Rate 106 /min 05/22/2024 Height-cm 157.48 cm 05/22/2024 Blood pressure diastolic 77 mm Hg 05/22/2024 Weight-kg 63.96 kg 05/22/2024 Height 62.00 in 05/22/2024 Blood pressure systolic 113 mm Hg 05/22/2024 Weight 141 lbs 05/22/2024 BMI 25.79 kg/m2 05/22/2024 Encounters Encounter Location Date Provider Diagnosis [facility] [employer] [facility] [address] [address] 11/27/2023 Devora Hudson MDD (major depressiv e disorder), recurrent episode, mild F33.0 ; Attention deficit hyperactivity disorder (ADHD), combined type F90.2 and MO (generalized anxiety disorder) F41.1 [place] [address] [facility] [address] [place] [address] 12/25/2023 Devoraterry Hudson [place] [address] [place] [address] [place] [address] 12/27/2023 Devora Kurilla MDD (major depressiv e disorder), recurrent episode, mild F33.0 ; Attention deficit hyperactivity disorder (ADHD), combined type F90.2 and MO (generalized anxiety disorder) F41.1 [facility] [address] [place] [address] [place] [address] 02/26/2024 Devora Kurilla MDD (major depressiv e disorder), recurrent episode, mild F33.0 ; Attention deficit hyperactivity disorder (ADHD), combined type F90.2 and MO (generalized anxiety disorder) F41.[address] [place] [address] [place] [address] 05/22/2024 Devora Kurilla MDD (major depressiv e disorder), recurrent episode, mild F33.0 ; Attention deficit hyperactivity disorder (ADHD), combined type F90.2 and MO (generalized anxiety disorder) F41.[address] [facility] [address] [place] [address] 06/19/2024 Devoraterry Hudson Encounter for screening for depression Z13.31 ; MDD (major depressive disorder), recurrent episode, mild F33.0 ; Attention deficit hyperactivity disorder (ADHD), combined type F90.2 and MO (generalized anxiety disorder) F41.1 [place] [address] [place] [address] [place] [address] 09/18/2024 Devora Kurilla Attention deficit hyperactivity disorder (ADHD), combined type F90.2 ; MDD (major depressive disorder), recurrent episode, mild F33.0 ; MO (generalized anxiety disorder) F41.1 ; Encounter for screening for depression Z13.31 and Negative depression screening Z13.31 [place] [address] [place] [address] [place] [address] 08/21/2024 Devora Hudson [facility] [address] [place] [address] [place] [address] 10/30/2023 Devora Tristan [facility], [facility] [address] [facility] [address] [place] [address] 12/01/2023 Devoraterry Hudson [facility], [facility] [address] [facility] [address] [place] [address] 12/09/2023 Devora Kurilla Attention deficit hyperactivity disorder (ADHD), combined type F90.2 [facility], [facility] [address] [facility] [address] [place] [address] 01/24/2024 Devora Tristan Attention deficit hyperactivity disorder (ADHD), combined type F90.2 [facility], [facility] [address] [address] 02/19/2024 Jacinda Richter Attention deficit hyperactivity disorder (ADHD), combined type F90.2 [facility], [place] [address] [address] 03/27/2024 Devora Tristan Attention deficit hyperactivity disorder (ADHD), combined type F90.2 [facility], [place] [address] [address] 04/23/2024 Devora Kurilla Attention deficit hyperactivity disorder (ADHD), combined type F90.2 [facility], [place] [address] [address] 08/31/2024 Devora Tristan MDD (major depressiv e disorder), recurrent episode, mild F33.0 and Attention deficit hyperactivity disorder (ADHD), combined type F90.2 Assessments Encounter Date Diagnosis (ICD Code) Assessment Notes Treatment Notes Treatment Clinical Notes Section Notes 11/27/2023 MDD (major depressive disorder), recurrent episode, mild (ICD-10 - F33.0) Depression and anxiety stable off of Wellbutrin. Concern today is managing ADHD symptoms, wanting to restart treatment. Not . 12/09/2023 Attention deficit hyperactivity disorder (ADHD), combined type (ICD-10 - F90.2) 12/27/2023 MDD (major depressive disorder), recurrent episode, mild (ICD-10 - F33.0) 01/24/2024 Attention deficit hyperactivity disorder (ADHD), combined type (ICD-10 - F90.2) 02/19/2024 Attention deficit hyperactivity disorder (ADHD), combined type (ICD-10 - F90.2) 02/26/2024 MDD (major depressive disorder), recurrent episode, mild (ICD-10 - F33.0) 03/27/2024 Attention deficit hyperactivity disorder (ADHD), combined type (ICD-10 - F90.2) 04/23/2024 Attention deficit hyperactivity disorder (ADHD), combined type (ICD-10 - F90.2) 05/22/2024 MDD (major depressive disorder), recurrent episode, mild (ICD-10 - F33.0) 06/19/2024 Encounter for screening for depression (ICD-10 - Z13.31) 09/18/2024 Attention deficit hyperactivity disorder (ADHD), combined type (ICD-10 - F90.2) Common side effects of Wellbutrin include insomnia, increased anxiety, nausea, dizziness, decreased appetite, restlessness, irritability and anger, increased sweating or hot flashes, tremors, joint pain. Wellbutrin is not recommended in individuals with a history of seizures. If side effects persist, please contact the office. ADDERALL 20MG BID PER OBGYN 08/31/2024 MDD (major depressive disorder), recurrent episode, mild (ICD-10 - F33.0) Electronic Prior Authorization was requested for buPROPion HCl ER (XL) 150 MG Tablet Extended Release 24 Hour. Provider can order medication once approval received. 09/18/2024 MO (generalized anxiety disorder) (ICD-10 - F41.1) 09/18/2024 MDD (major depressive disorder), recurrent episode, mild (ICD-10 - F33.0) I'm considering augmenting therapy with a new medication or starting/switchi ng to a new medication List all the [facility] medications that you are considering for augmentation or starting/switchi ng to Medication considered [id number] Citalopram (Celexa), [id number] Escitalopram (Lexapro) and [id number] Sertraline (Zoloft) I'm considering a dosage adjustment to currently prescribed medication(s) Wellbutrin Have you considered non-genetic factors to make a preliminary drug selection, including a personalized medication decision based on the patient's diagnosis, the patient's other medical conditions, other medications the patient is taking, professional judgment, clinical science and basic science pertinent to the drug (e.g. mechanism of action, side effects), the patient's past medical history, and when pertinent, family history and the patient's preferences and values? Note: Many insurance providers require clinicians to consider non-genetic factors when ordering this test. YES [facility] MTHFR ____x__ Yes NO 06/19/2024 MDD (major depressive disorder), recurrent episode, mild (ICD-10 - F33.0) 05/22/2024 Attention deficit hyperactivity disorder (ADHD), combined type (ICD-10 - F90.2) Common side effects of Wellbutrin include insomnia, increased anxiety, nausea, dizziness, decreased appetite, restlessness, irritability and anger, increased sweating or hot flashes, tremors, joint pain. Wellbutrin is not recommended in individuals with a history of seizures. If side effects persist, please contact the office. 02/26/2024 Attention deficit hyperactivity disorder (ADHD), combined type (ICD-10 - F90.2) 12/27/2023 Attention deficit hyperactivity disorder (ADHD), combined type (ICD-10 - F90.2) 11/27/2023 Attention deficit hyperactivity disorder (ADHD), combined type (ICD-10 - F90.2) CancelRx Response got Denied on 2023-12-09 11:18:18 for 'Amphetamine-Dex troamphetamine 15 MG Tablet'Pharmacy Notes: Prescription not found. Contact Pharmacy by other means Depression and anxiety stable off of Wellbutrin. Concern today is managing ADHD symptoms, wanting to restart treatment. Not . 11/27/2023 MO (generalized anxiety disorder) (ICD-10 - F41.1) Depression and anxiety stable off of Wellbutrin. Concern today is managing ADHD symptoms, wanting to restart treatment. Not . 12/27/2023 MO (generalized anxiety disorder) (ICD-10 - F41.1) 02/26/2024 MO (generalized anxiety disorder) (ICD-10 - F41.1) 05/22/2024 MO (generalized anxiety disorder) (ICD-10 - F41.1) 06/19/2024 Attention deficit hyperactivity disorder (ADHD), combined type (ICD-10 - F90.2) Common side effects of Wellbutrin include insomnia, increased anxiety, nausea, dizziness, decreased appetite, restlessness, irritability and anger, increased sweating or hot flashes, tremors, joint pain. Wellbutrin is not recommended in individuals with a history of seizures. If side effects persist, please contact the office. 08/31/2024 Attention deficit hyperactivity disorder (ADHD), combined type (ICD-10 - F90.2) 09/18/2024 Encounter for screening for depression (ICD-10 - Z13.31) 09/18/2024 Negative depression screening (ICD-10 - Z13.31) 06/19/2024 MO (generalized anxiety disorder) (ICD-10 - F41.1) 11/27/2023 Other Switch adderall to IR-15mg BID Start duloxetine 20mg daily for mood, anxiety. Patient educated on all medications including potential benefits, side effects, risks. Educated on proper dosing schedule and importance of compliance. [place] checked and consistent with prescription history, no controlled substance prescriptions from other providers. Depression and anxiety stable off of Wellbutrin. Concern today is managing ADHD symptoms, wanting to restart treatment. Not . 12/27/2023 Other Increase Adderall to 20mg BID for ADHD. Patient educated on all medications including potential benefits, side effects, risks. Educated on proper dosing schedule and importance of compliance. [place] report checked and consistent with prescription history, no controlled substance prescriptions from other providers. UDT reviewed 02/26/2024 Other Increase duloxetine to 30mg daily for mood, anxiety. Patient educated on all medications including potential benefits, side effects, risks. Educated on proper dosing schedule and importance of compliance. [place] report checked and consistent with prescription history, no controlled substance prescriptions from other providers. 05/22/2024 Other Discontinue Adderall due to not recommended in . Continue duloxetine for now. Start Wellbutrin 150mg daily, did well on this last for mood, ADHD management, anxiety. Patient educated on all medications including potential benefits, side effects, risks. Educated on proper dosing schedule and importance of compliance. Encouraged to discuss medication changes with OB -Assessment and treatment plan reviewed with patient. -Compliance with treatment plan importance discussed. -Discussed the risks/benefits of this medication -Discussed medication side effects. -Contact office if symptoms worsen. -Discussed that it can take up to 6-8 weeks to see full therapeutic effects of psychotropic medications. -Crisis prevention hotline [phone]. 06/19/2024 Other Increase Wellbutrin to 300mg daily for mood, anxiety. Patient educated on all medications including potential benefits, side effects, risks. Educated on proper dosing schedule and importance of compliance. -Assessment and treatment plan reviewed with patient. -Compliance with treatment plan importance discussed. -Discussed the risks/benefits of this medication -Discussed medication side effects. -Contact office if symptoms worsen. -Discussed that it can take up to 6-8 weeks to see full therapeutic effects of psychotropic medications. -Crisis prevention [facility] 988. 09/18/2024 Other Stable on current medication regimen, continue at current doses. -Refills sent in today for wellbutrin - Adderall prescription per OBGYN through -No concerns today Patient educated on all medications including potential benefits, side effects, risks. Educated on proper dosing schedule and importance of compliance. -Assessment and treatment plan reviewed with patient. -Compliance with treatment plan importance discussed. -Discussed the risks/benefits of this medication -Discussed medication side effects. -Contact office if symptoms worsen. -Discussed that it can take up to 6-8 weeks to see full therapeutic effects of psychotropic medications. -Crisis prevention [facility] 988. 08/21/2024 Other Electronic Prio r Authorization was requested for buPROPion HCl ER (XL) 300 MG Tablet Extended Release 24 Hour. Provider can order medication once approval received. Plan Of Treatment Pending Test Test Name Order Date Cytochrome P450 2D6 Genotyping 5 Cytochrome P450 2C9 Genotyping 5 Cytochrome P450 2C19 09/18/2024 Next Appt Details Provider Name:Devora younger, 02/03/2025 09:45:00 AM, [address], [facility] [address], [place], [address], Insurance Providers Payer Name Payer Address Payer Phone Subscriber Number Group Number Insured Name Patient Relationship to Insured Coverage Start Date Coverage End Date [facility] [address] [place] [address] [id number] FREDRICK ARIZMENDI Self - patient is the insured [place] Medicaid [address] [address] [place] [address] [id number] FREDRICK ARIZMENDI Self - patient is the insured Medical (General) History Medical History History ICD Code Problems: Attention deficit hyperactivit y disorder, combined type Chronic post-traumatic stress disorder Generalized anxiety disorder Moderate recurrent major depression , Surgical History Surgery Date(Month/Year) Breast surgery () 04/26/2021
--- OUTSIDE RECORDS SUMMARY | 2024-09-24 15:19 | XMS_ITS | Encounter Summary ---
Author Organization [facility] Address [address] [address] Care Team Providers Care Creative Perfumer Name Role Phone Unavailable Primary Care Provider Unavailabl e Reason for Visit * Reason Onset Date Comments Appointment 09/24/2024 Encounter Details Date Type Department Care Team (Late Contact Info) Description 09/24/2024 Telephone [facility] Care [address] [address] Arpita Allen Appointment Social History Tobacco Use Types Packs/Day Years Used Date Smoking Tobacco: Never Smokeless Tobacco: Never Alcohol Use Standard Drinks/Week Comments Never 0 (1 standard drink = 0.6 oz pur e alcohol) Comments No Sex and Gender Information Value Date Recorded Sex Assigned at Not on file Legal Sex Female 10:30 AM CDT Gender Identity Not on file Sexual Orientation Not on file documented as of this encounter Miscellaneous Notes * Telephone Encounter - Arpita Allen - 09/24/2024 2:10 PM CDT Patient called in, scheduled echo 10/28/24 @ 10:30 am. Verified insurance and demographics. Instructions sent via Mobile [employer]. documented in this encounter Plan of Treatment Upcoming Encounters Date Type Department Care Team (Late st Contact Info) Description 10/28/2024 10:30 AM CDT Appointment [facility] Care [address] [address] [place] [address] [place] [address] [address] [place] [address] 10/28/2024 10:30 AM CDT Appointment [address] [place] [address] documented as of this encounter Visit Diagnoses Not on filedocumented in this encounter
--- NOTE | 2024-09-24 17:44 | ED.GENADULT ---
HPI - General Adult General Chief complaint: Unspecified <IRAIDA Amato Last Filed: 09/24/24 19:41> Stated complaint: breast implant problem <IRAIDA Amato Last Filed: 09/24/24 19:41> Time Seen by Provider: 09/24/24 17:44 <IRAIDA Amato Last Filed: 09/24/24 19:41> Focused HPI: Patient is a 24 y/o female who presents to the ED with c/o L breast pain. Patient had earline breast implants placed in [place] [address] Nico Tomlin. States she had a CT scan performed of her abd in February 2024 which showed intracapsular rupture of her L breast implant. Patient is now currently 23 weeks gestation. OBGYN is Dr. Mahan. States over the past few days, she has been having increased pain in her L breast , particularly at night. Reports swelling in the veins in her L breast. Reports chronic nipple inversion in her L breast. Had an US of her breast on 09/17/24 which again showed rupture of implant and possible inflammation of breast. Denies redness/warmth of breast, fevers. Patient states her OBGYN recommended to come to the ED today to be ruled out for a blood clot. Patient denies shortness of breath. GENERAL: Well-appearing, well-nourished, and in no acute distress. HEAD: Normocephalic, atraumatic. CHEST: Clear to auscultation. ?No respiratory distress. HEART: Regular rate and rhythm.? BREAST: Irregular shape to breast implant of left breast. Mild tenderness to palpation over left upper breast/chest wall. Nipple inversion. No nipple drainage. No redness or warmth. NEURO: ?Alert and oriented x3. Patient screened in triage and initial orders placed.? ?Additional care and disposition to be based upon?diagnostic testing and treatment. <IRAIDA Amato Last Filed: 09/24/24 19:41> Source: patient <IRAIDA Amato Last Filed: 09/24/24 19:41> Mode of arrival: ambulatory <IRAIDA Amato Last Filed: 09/24/24 19:41> Limitations: no limitations <IRAIDA Amato Last Filed: 09/24/24 19:41> History of Present Illness HPI narrative: Agree with the above triage note. Patient states she has noticed some drainage out of the left breast with states this is not abnormal for . She denies any purulent drainage. She states the pain in her left breast feels like a dull ache it is located over the superior lateral aspect of her breast. She states it is worse when she lays on her left side. She states the pain feels ?superficial?. She denies pleuritic pain. Denies redness or fevers to her breast. She denies extremity edema, calf pain, recent surgeries or hospitalizations, recent long travel, hemoptysis, history of VTE, abdominal pain, vaginal bleeding or leakage of fluids. Patient states she did notify her breast surgeon in [place] of her intracapsular rupture when she from a incidentally on a CT scan in February 2024. He advised her that they will readdress this after her . States this has been uncomplicated. <IRAIDA Ordaz Last Filed: 09/24/24 20:37> Related Data Home medications: Home Medications ?Medication ?Instructions ?Recorded ?Confirmed ?Last Taken ?Type vit#24-iron amino acid 1 tablet PO DAILY 07/25/23 09/14/24 07/25/23 10:00 History chelat-folic acid 30 mg-975 mcg tablet <IRAIDA Amato Last Filed: 09/24/24 19:41> Allergies/adverse reactions: Allergies Allergy/AdvReac Type Severity Reaction Status Date / Time hydroxyzine Allergy Intermediate Itching Verified 09/14/24 13:39 poison preethi extract Allergy Hives Verified 09/14/24 13:39 <IRAIDA Amato Last Filed: 09/24/24 19:41> Review of Systems Review of Systems: All systems reviewed & are unremarkable except as noted in HPI and below <IRAIDA Ordaz Last Filed: 09/24/24 20:37> PMFSH Past Medical History Medical History: Medical History Spondylosis lower lumbar Mastitis Breast implant rupture Encounter for insertion of mirena IUD Morbid obesity Irregular periods Pre-eclampsia added to pre-existing hypertension Anxiety Vaginal discharge Encounter for screening examination for sexually transmitted disease Suppression of menstruation Frequent headaches Chlamydia (12/17/16) Hypoglycemia <Stephanie Gruber PA-C - Last Filed: 09/24/24 19:41> Surgical History Surgical History: Surgical History H/O breast augmentation (05/02/21) History of repair of hiatal hernia (~2001) History of oral surgery (~2012) <Stephanie Gruber PA-C - Last Filed: 09/24/24 19:41> Family History Family History: Family History Grandparent Malignant tumor of urinary bladder maternal grandmother Mother Malignant tumor of cervix <Stephanie Gruber PA-C - Last Filed: 09/24/24 19:41> Social History Social History: Social History Smoking status: Never smoker Alcohol intake: never Substance use: former Substance use type: marijuana Other substance usage details: for stress Last use: unknown-within last 30 days Do You Feel Safe in your Home?: Yes Lack of Transportation: No Lack of Food: Never True Current Housing: I Have Housing Concerned About Future Housing: No Difficulty Paying Gas/Electric Bills: No Difficulty Paying for Meds: No Currently Unemployed: YES Education: High School Diploma/GED Difficulty w/ Childcare or Family Care: No Living arrangements: other Additional living arrangements comments: single Occupation/Education: other 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 HEAD: Normocephalic, atraumatic. EYES: PERRLA and EOMI. ENT: Nares clear, no rhinorrhea or epistaxis. Mucous membranes moist. NECK: Supple. CHEST: Clear to auscultation. No respiratory distress. Chronically left inverted nipple. No erythema, no warmth, no palpable bumps. No overlying skin changes. No nipple drainage HEART: Regular rate and rhythm. No murmur heard. Normal peripheral pulses. ABDOMEN: Soft, nontender, nondistended, normal active bowel sounds. Gravid abdomen EXTREMITIES: Normal range of motion. No edema. Negative Homans bilaterally SKIN: Warm, dry, no rash. NEURO: No focal deficits. Alert and oriented x3 <IRAIDA Ordaz Last Filed: 09/24/24 20:37> Course Vital Signs Vital signs: Vital Signs Temperature 97.5 F L 09/24/24 15:17 Pulse Rate 99 09/24/24 15:17 Respiratory Rate 16 09/24/24 15:17 Blood Pressure 128/75 09/24/24 15:17 Pulse Oximetry 100 09/24/24 15:17 Oxygen Delivery Room Air 09/24/24 15:17 Temperature 97.5 F L 09/24/24 15:17 Pulse Rate 89 09/24/24 18:27 Respiratory Rate 16 09/24/24 18:27 Blood Pressure 133/82 09/24/24 18:27 Pulse Oximetry 100 09/24/24 18:27 Oxygen Delivery Room Air 09/24/24 18:27 <Stephanie Gruber PA-C - Last Filed: 09/24/24 19:41> Vital Signs Temperature 97.5 F L 09/24/24 15:17 Pulse Rate 99 09/24/24 15:17 Respiratory Rate 16 09/24/24 15:17 Blood Pressure 128/75 09/24/24 15:17 Pulse Oximetry 100 09/24/24 15:17 Oxygen Delivery Room Air 09/24/24 15:17 Temperature 97.5 F L 09/24/24 15:17 Pulse Rate 89 09/24/24 18:27 Respiratory Rate 16 09/24/24 18:27 Blood Pressure 133/82 09/24/24 18:27 Pulse Oximetry 100 09/24/24 18:27 Oxygen Delivery Room Air 09/24/24 18:27 <Shae Martínez PA-C - Last Filed: 09/24/24 20:37> Medical Decision Making MDM Narrative Medical decision making narrative: MSE by NELLY in triage. <Stephanie Gruber PA-C - Last Filed: 09/24/24 19:41> MSE by NELLY in triage. 24-year-old female who is currently 23 weeks presents to the emergency department for atraumatic left breast pain for the past 3 days. Patient has no intracapsular left breast implant rupture of the Rehman noted on a CT scan in February of 2024. Her surgeon is in [place]. Patient contacted her OBGYN and was advised to come to the emergency department due to concerns for a blood clot. Patient had a breast ultrasound ordered by her OBGYN on 09/17/2024 which showed no suspicious lesions seen in the left subareolar region. There is complex appearance of breast implant which could reflect rupture possible secondary inflammatory reaction. On exam today patient has no evidence of mastitis or breast abscess, no secondary signs of infection. Her lab work shows no leukocytosis or anemia. Her chemistries are unremarkable. Her ESR and CRP are within normal limits. Her EKG shows sinus rhythm with sinus arrhythmia with a rate of 80 ppm, normal SD interval, normal QRS duration, normal QTC. Troponin is undetectable. D-dimer obtained in triage is elevated 1.84. I did discuss obtaining a CTA PE of the chest to evaluate for PE. Discussed the risks and benefits of obtaining this test and . Ultimately patient does not wish to move forward with a CT of the chest. She is otherwise low risk for a PE and has no hypoxia or tachycardia. I have low suspicion for PE, however did discuss that I cannot fully rule out a PE without imaging and risks of PE include permanent disability and . Patient verbalizes understanding of this and would still like to not proceed with a CT study until she speaks with her OBGYN. I did offer to contact OBGYN audiovisual production specialist for Dr. Mahan however patient politely declined states she still does not want a CTA at this time. Overall I suspect patient's symptoms may be secondary to breast pain from , ligament strain, engorged breasts, other. I have low suspicion at this time for an infectious reaction given reassuring labs and exam. I advised her to follow-up closely with her breast surgeon and her OBGYN. Advised Tylenol p.r.n. for pain. I discussed strict ED return precautions. She is agreeable with the plan verbalized understanding. Discharged in stable condition. <IRAIDA Ordaz Last Filed: 09/24/24 20:37> Vital Signs Vital Signs: Vital Signs Temperature 97.5 F L 09/24/24 15:17 Pulse Rate 99 09/24/24 15:17 Respiratory Rate 16 09/24/24 15:17 Blood Pressure 128/75 09/24/24 15:17 Pulse Oximetry 100 09/24/24 15:17 Oxygen Delivery Room Air 09/24/24 15:17 Temperature 97.5 F L 09/24/24 15:17 Pulse Rate 89 09/24/24 18:27 Respiratory Rate 16 09/24/24 18:27 Blood Pressure 133/82 09/24/24 18:27 Pulse Oximetry 100 09/24/24 18:27 Oxygen Delivery Room Air 09/24/24 18:27 <IRAIDA Amato Last Filed: 09/24/24 19:41> Vital Signs Temperature 97.5 F L 09/24/24 15:17 Pulse Rate 99 09/24/24 15:17 Respiratory Rate 16 09/24/24 15:17 Blood Pressure 128/75 09/24/24 15:17 Pulse Oximetry 100 09/24/24 15:17 Oxygen Delivery Room Air 09/24/24 15:17 Temperature 97.5 F L 09/24/24 15:17 Pulse Rate 89 09/24/24 18:27 Respiratory Rate 16 09/24/24 18:27 Blood Pressure 133/82 09/24/24 18:27 Pulse Oximetry 100 09/24/24 18:27 Oxygen Delivery Room Air 09/24/24 18:27 <IRAIDA Ordaz Last Filed: 09/24/24 20:37> Lab Data Result diagrams: 09/24/24 18:01 09/24/24 18:01 <IRAIDA Amato Last Filed: 09/24/24 19:41> Labs: Lab Results 09/24/24 Range/Units 18:01 WBC 9.4 (4.5-10.0) K/mm3 RBC 3.93 L (4.2-5.4) M/mm3 Hgb 12.5 (12.0-15.0) g/dL Hct 37.7 (37.0-47.0) % MCV 95.9 (80-100) fl MCH 31.8 (26-34) pg MCHC 33.2 (32-36) g/dl RDW 12.7 (11.5-14.5) % Plt Count 184 (150-375) k/mm3 MPV 9.8 (7.4-10.4) fl Immature Gran % (Auto) 0.9 H (0-0.5) % Neut % (Auto) 73.1 (45.5-73.1) % Lymph % (Auto) 18.5 (18.3-44.2) % [place] % (Auto) 6.5 (2.6-8.5) % Eos % (Auto) 0.7 (0-4.4) % Baso % (Auto) 0.3 (0.2-1.2) % Lymph # (Auto) 1.73 (0.9-3.2) K/mm3 [place] # (Auto) 0.6 (0.1-0.6) K/mm3 Eos # (Auto) 0.1 (0-0.3) K/mm3 Baso # (Auto) 0.0 (0.0-0.1) K/mm3 Abs Immat Gran (auto) 0.08 H (0.00-0.031) K/mm3 Absolute Neuts (auto) 6.8 H (1.3-6.7) K/mm3 Absolute Nucleated RBC 0.000 (0.0-0.012) K/mm3 Nucleated RBC % 0.0 (0.0-0.2) % ESR 14 (0-20) mm/hr PT 12.6 (11.1-14.7) Seconds INR 0.9 APTT 25.2 (22.3-36.8) Seconds D-Dimer 1.84 H (<0.48) ug/mL Sodium 135 L (137-145) mmol/L Potassium 4.2 (3.4-5.0) mmol/L Chloride 105 (98-107) mmol/L Carbon Dioxide 24 (22-30) mmol/L Anion Gap 6 (4-12) mmol/L BUN 11 D (7-17) mg/dL Creatinine 0.47 L (0.7-1.0) mg/dL Estim Creat Clear Calc 154 ml/min Estimated GFR > 60 (59 - ) Glucose 81 (65-110) mg/dL Calcium 8.8 (8.4-10.2) mg/dL Troponin I < 0.012 (0.000-0.034) ng/mL C-Reactive Protein < 0.5 (<1.0) mg/dL <Stephanie Gruber PA-C - Last Filed: 09/24/24 19:41> Lab Results 09/24/24 Range/Units 18:01 WBC 9.4 (4.5-10.0) K/mm3 RBC 3.93 L (4.2-5.4) M/mm3 Hgb 12.5 (12.0-15.0) g/dL Hct 37.7 (37.0-47.0) % MCV 95.9 (80-100) fl MCH 31.8 (26-34) pg MCHC 33.2 (32-36) g/dl RDW 12.7 (11.5-14.5) % Plt Count 184 (150-375) k/mm3 MPV 9.8 (7.4-10.4) fl Immature Gran % (Auto) 0.9 H (0-0.5) % Neut % (Auto) 73.1 (45.5-73.1) % Lymph % (Auto) 18.5 (18.3-44.2) % [place] % (Auto) 6.5 (2.6-8.5) % Eos % (Auto) 0.7 (0-4.4) % Baso % (Auto) 0.3 (0.2-1.2) % Lymph # (Auto) 1.73 (0.9-3.2) K/mm3 [place] # (Auto) 0.6 (0.1-0.6) K/mm3 Eos # (Auto) 0.1 (0-0.3) K/mm3 Baso # (Auto) 0.0 (0.0-0.1) K/mm3 Abs Immat Gran (auto) 0.08 H (0.00-0.031) K/mm3 Absolute Neuts (auto) 6.8 H (1.3-6.7) K/mm3 Absolute Nucleated RBC 0.000 (0.0-0.012) K/mm3 Nucleated RBC % 0.0 (0.0-0.2) % ESR 14 (0-20) mm/hr PT 12.6 (11.1-14.7) Seconds INR 0.9 APTT 25.2 (22.3-36.8) Seconds D-Dimer 1.84 H (<0.48) ug/mL Sodium 135 L (137-145) mmol/L Potassium 4.2 (3.4-5.0) mmol/L Chloride 105 (98-107) mmol/L Carbon Dioxide 24 (22-30) mmol/L Anion Gap 6 (4-12) mmol/L BUN 11 D (7-17) mg/dL Creatinine 0.47 L (0.7-1.0) mg/dL Estim Creat Clear Calc 154 ml/min Estimated GFR > 60 (59 - ) Glucose 81 (65-110) mg/dL Calcium 8.8 (8.4-10.2) mg/dL Troponin I < 0.012 (0.000-0.034) ng/mL C-Reactive Protein < 0.5 (<1.0) mg/dL <Shae Martínez PA-C - Last Filed: 09/24/24 20:37> Discharge Plan Discharge Clinical Impression: Breast pain, left <IRAIDA Amato Last Filed: 09/24/24 19:41> Patient Disposition: Home <IRAIDA Amato Last Filed: 09/24/24 19:41> Condition: Stable <IRAIDA Amato Last Filed: 09/24/24 19:41> Instructions: Antibiotic Form <IRAIDA Amato Last Filed: 09/24/24 19:41> Additional Instructions: You were evaluated in the emergency department for left breast pain. Your workup is reassuring other than an elevated D-dimer which can be elevated in but can also be elevated in a blood clot. We discussed obtaining a CT scan of your chest to evaluate for blood clot however you declined due to risk of radiation to your fetus. Please follow-up closely with your OBGYN and your breast surgeon. Return to the emergency department if you develop a fever, redness your breast, pus drainage from her nipple, chest pain, shortness of breath or other concerning symptoms. Take Tylenol as directed [id number] on the bottle as needed for pain. <Stephanie Gruber PA-C - Last Filed: 09/24/24 19:41> Patient Language: Luxembourgish <Stephanie Gruber PA-C - Last Filed: 09/24/24 19:41> Prescriptions: No Action PNV no.40-neat-qikib acid 30-975 mg-mcg Tablet 1 tablet PO DAILY dextroamphetamine-amphetamine [Adderall] 20 mg tablet 20 mg PO BID Qty: 60 0RF <Stephanie Gruber PA-C - Last Filed: 09/24/24 19:41> Follow-up/Referrals: Rod Mahan MD [Physician] - Marcia,IRAIDA Márquez [Primary Care Provider] - <Stephanie Gruber PA-C - Last Filed: 09/24/24 19:41>
[2024-09-24 17:45] VITALS: BP 126/86; PULSE 93; RESP 16; O2SAT 100
--- NOTE | 2024-09-24 18:05 | ECG_ITS ---
Test Date: 2024-09-24 18:14:28 Measurements Intervals [place] Rate: 82 P: 42 ND: 149 QRS: 47 QRSD: 75 T: 46 QT: 356 QTc: 416 Interpretive Statements SINUS RHYTHM WITH SINUS ARRHYTHMIA No previous ECG available for comparison Electronically Signed On 09-25-2024 12:43:34 CDT by Melecio Tee M.D.
[2024-09-24 18:08] LABS: Hematocrit 37.7 % (37.0-47.0); Hemoglobin 12.5 g/dL (12.0-15.0); Immature Granulocyte Percent A 0.9 % (0-0.5); Lymphocytes Absolute Auto 1.73 K/mm3 (0.9-3.2); Mean Corpuscular HGB Conc 33.2 g/dl (32-36); Mean Corpuscular Hemoglobin 31.8 pg (26-34); Mean Corpuscular Volume 95.9 fl (80-100); Nucleated Red Blood Cells Absolute Auto 0.000 K/mm3 (0.0-0.012); Nucleated Red Blood Cells Perc 0.0 % (0.0-0.2); Platelet Count Result 184 k/mm3 (150-375); Red Blood Count 3.93 M/mm3 (4.2-5.4); White Blood Count 9.4 K/mm3 (4.5-10.0)
[2024-09-24 18:21] LABS: Anion Gap 6 mmol/L (4-12); Blood Urea Nitrogen 11 mg/dL (7-17); CRP < 0.5 mg/dL (<1.0); Calcium 8.8 mg/dL (8.4-10.2); Carbon Dioxide 24 mmol/L (22-30); Chloride 105 mmol/L (98-107); Estimated CRCL calculation 154 ml/min; Estimated Glomerular Filt Rate > 60; Glucose 81 mg/dL (65-110); INR 0.9; Partial Thromboplastin Time 25.2 Seconds (22.3-36.8); Potassium 4.2 mmol/L (3.4-5.0); Prothrombin Time 12.6 Seconds (11.1-14.7); Sodium 135 mmol/L (137-145)
[2024-09-24 18:27] VITALS: BP 133/82; PULSE 89; RESP 16; O2SAT 100
[2024-09-24 18:30] LABS: Troponin I < 0.012 ng/mL (0.000-0.034)
--- OUTSIDE RECORDS SUMMARY | 2024-09-24 19:45 | XMS_ITS | Encounter Summary ---
Author Organization [facility] Address [address] [address] Care Team Providers Care Aurist Name Role Phone Unavailable Primary Care Provider Unavailabl e Reason for Visit * Reason Onset Date Comments Appointment 09/24/2024 Encounter Details Date Type Department Care Team (Late Contact Info) Description 09/24/2024 Telephone [facility] Care [address] [address] Arpita Allen Appointment Social History Tobacco Use [...] Verified insurance and demographics. Instructions sent via [employer]. documented in this encounter Plan of Treatment Upcoming Encounters Date Type Department Care Team (Late st Contact Info) Description 10/28/2024 10:30 AM CDT Appointment [facility] Care [address] [address] [place] [address] [place] [address] [address] [place] [address] 10/28/2024 10:30 AM CDT Appointment [address] [place] [address] documented as of this encounter Visit Diagnoses Not on filedocumented in this encounter
--- OUTSIDE RECORDS SUMMARY | 2024-09-24 19:45 | XMS_ITS | Clinical Summary ---
Author Organization [facility] Address [address] [place] [address] Care Team Providers Care High Climber Name Role Phone Unavailable Primary Care Provider Unavailabl e Source Comments [facility],non-owned Affiliates and Associated Physician Practices is amultiple site organization consisting of ambulatory clinics and hospital sitesin [place], [place], [place] and [place]. This disclosure is being madepursuant to the Care Everywhere program and may not contain all information available regarding this patient. Last updated 17.[facility] Allergies No known active allergies Medications [...] Type Department Care Team Description 09/24/[address] [address] Arpita Allen Appointment 08/24/2024 Orders Only [address] [address] Ivet Sousa project program manager history of congenital heart defect from Last [...] Info) Description 10/28/2024 10:30 AM CDT Appointment [address] [address] [address] Mahan MD [address] [place] [address] 10/28/2024 10:30 AM CDT Appointment [address] [address] Health Maintenance Due Date Last Done Comments [...]
--- OUTSIDE RECORDS SUMMARY | 2024-09-24 19:45 | XMS_ITS | Clinical Summary ---
Author Organization [facility] Address [address] [place] [address] Phone Care Team Providers Care Scrap Bunch Maker Name Role Phone Unavailable Primary Care Provider [...] on file Legal Sex Female 1:07 PM AGATE SETTER Gender Identity Not on file Sexual Orientation Not on file Last Filed Vital Signs Vital Sign Reading Time Taken Comments Blood Pressure - - Pulse - - Temperature - - Respiratory Rate - - Oxygen Saturation - - Inhaled Oxygen Concentration - - Weight 59.4 kg (131 lb) 02/25/2024 1:00 PM AGATE SETTER Height 157.5 cm (5' 2) 02/25/2024 1:00 PM AGATE SETTER Body Mass Index 23.96 02/25/2024 1:00 PM AGATE SETTER Plan of Treatment Not on file Insurance [place]
[2024-09-24 20:40] VITALS: BP 118/58; PULSE 86; RESP 18; O2SAT 98
== END 2024-09-24 20:46 | disposition home or self-care (01) ==
PROVIDERS: Physician Assistant; Emergency Provider Physician Assistant; PCP Physician Assistant
DX: O26.892 Other specified pregnancy related conditions, second trimester (principal); N64.4 Mastodynia; Z3A.23 23 weeks gestation of pregnancy; Z98.82 Breast implant status
CPT/HCPCS: 36415; 80048; 84484; 85025; 85380; 85610; 85652; 85730; 86140; 93005; 99284

== ENCOUNTER 2024-11-18 11:35 | Outpatient (CLI) | payer BC, MEDICAID, SELFPAY ==
--- OUTSIDE RECORDS SUMMARY | 2024-11-18 11:53 | XMS_ITS | Patient Health Record ---
Author Organization [facility] [employer] Address [address] [place] [address] Care Team Providers Care Assembler Truck Trailer Name Role Phone Yulisa Reyes Primary Care Provider Devora Diaz Unavailable [phone] Jacinda Richter Unavailable [phone] Allergies Allergen (clinical drug ingredient) Drug/Non Drug Allergy documented on EMR Reaction Allergy Type Onset Date Status POISON JOHN EXTRACT POISON JOHN EXTRACT (uncoded) Unknown Allergy 05/16/2023 Active hydroxyzine Vistaril Unknown Drug Allergy 05/16/2023 Acti ve Results Component Value Reference Range Flag Notes UDT Reviewed date:12/27/2023 03:14:31 PM Interpretation: Performing Lab: Notes/Report: THC n 0 - 50 ng/ml Cocaine n 0 - 300 ng/ml Amphetamine p 0 - 1000 ng/ml Buprenorphine (BUP) n 0 - 10 ng/ml Secobarbital (Bar) n 0 - 300 ng/ml Oxazepam (BZO) n 0 - 300 ng/ml 7-vsbitfqcgc-8,5-thsyxegu-8, 3-diphe nylpyrrolidine (EDDP) n 0 - 300 ng/ml Methamphetamine (MET) n 0 - 1000 ng/ml Methylenedioxymethamphetamin e (MDMA) n 0 - 500 ng/ml Morphine (MOP 300/BTB6375) n 0 - 300 ng/ml Methadone (MTD) n 0 - 300 ng/ml Phencyclidine (PCP) n 0 - 25 ng/ml Nortriptyline (TCA) n 0 - 1000 ng/ml Oxycodone n 0 - 300 ng/ml x n 0 - 300 ng/ml DRUG MONITOR,AMPHETAMINE, W/ DL, QN URINE (69769) Reviewed date:03/25/2024 05:44:04 PM Interpretation: Performing Lab:[facility], [facility] [address], [id number] Sachin Sosa Notes/Report: FASTING: NO Amphetamine 2436 <250 ng/mL H Methamphetamine NEGATIVE <250 ng/mL Amphetamines Comments See Amphetamines Notes, LDT Notes DRUG MONITOR, MARIJUANA META B, QN, URINE (76068) Reviewed date:03/25/2024 05:43:55 PM Interpretation: Performing Lab:[facility], [facility] [address], [id number] Sachin Sosa, Director - [address] [facility] Notes/Report: FASTING: NO Marijuana Metabolite 17 <5 ng/mL H Marijuana Comments See Ma rijuana Notes, LDT Notes Notes and Comments This [...] analytical performance characteristics have been determined by [facility]. It has not been cleared or approved by the FDA. This assay has been validated pursuant to the CLIA regulations and is used for clinical purposes. Healthcare Providers needing Interpretation assistance, please contact us at [phone] ( ) M-F, 8am to 10pm EST UDT Reviewed date:02/26/2024 03:42:37 PM Interpretation: Performing Lab: Notes/Report: THC NEG 0 - 50 ng/ml Cocaine NEG 0 - 300 ng/ml Amphetamine POS 0 - 1000 ng/ml Buprenorphine (BUP) NEG 0 - 10 ng/ml Secobarbital (Bar) NEG 0 - 300 ng/ml Oxazepam (BZO) NEG 0 - 300 ng/ml 3-jzvklmljrv-6,3-esmmfdcf-2, 3-diphe nylpyrrolidine (EDDP) NEG 0 - 300 ng/ml Methamphetamine (MET) NEG 0 - 1000 ng/ml Methylenedioxymethamphetamin e (MDMA) NEG 0 - 500 ng/ml Morphine (MOP 300/DIQ2172) NEG 0 - 300 ng/ml Methadone (MTD) NEG 0 - 300 ng/ml Phencyclidine (PCP) NEG 0 - 25 ng/ml Nortriptyline (TCA) NEG 0 - 1000 ng/ml Oxycodone NEG 0 - 300 ng/ml x NEG 0 - 300 ng/ml Reason For Referral No Information Medications Medication SIG (Take, Route, Frequency, Duration) Notes Start Date End Date Status buPROPion HCl ER (XL) 150 MG Tablet Extended Release 24 Hour 1 tablet in the morning Orally Once a day; Duration: 90 days Active Amphetamine-Dextroamphetam ine 20 MG Tablet Oral; Duration: 30 Days BID Active guanFACINE HCl ER 1 MG Tablet Extended Release 24 Hour 1 tablet Orally twice a day; Duration: 30 days 10/12/2024 Active Social History Tobacco Use: Social History Observation Description Date Details (start date - stop date) Never Smoker NA - NA Sex Assigned At : Social History Observation Description Sex Assigned At Female Social History Miscellaneous: Social Info Question Answer Notes Advance Care Planning Are you your own decision-maker Yes Do you have Power of Software Maintenance Engineer for Health or [facility]? No Tobacco Use: Social Info Question Answer Notes Tobacco Control (Standard) Tobacco use: Nonsmoker Additional Details Category Social Info Options Details Migrated Social History Migrated Social History Alcohol Intake: None 10/09/2022,Tobacco Years: Never smoker 10/09/2022 Problems Problem Type SNOMED Code ICD Code Onset Dates Problem Status W/U Status Risk Notes Problem Severe recurrent major depression without psychotic features (25917534) Major depressive disorder, recurrent severe without psychotic features (F33.2) Active confirmed Problem Generalized anxiety disorder (52148939) MO (generalized anxiety disorder) (F41.1) Active confirmed Problem Mild recurrent major depression (29722867) MDD (major depressive disorder), recurrent episode, mild (F33.0) Active confirmed Problem Attention deficit hyperactivity disorder (760948557) Attention deficit hyperactivity disorder (ADHD), combined type (F90.2) Active confirmed Vital Signs Heart Rate 106 /min 05/22/2024 Height-cm 157.48 cm 05/22/2024 Blood pressure diastolic 77 mm Hg 05/22/2024 Weight-kg 63.96 kg 05/22/2024 Height 62.00 in 05/22/2024 Blood pressure systolic 113 mm Hg 05/22/2024 Weight 141 lbs 05/22/2024 BMI 25.79 kg/m2 05/22/2024 Encounters Encounter Location Date Provider Diagnosis [place] [address] [address] [facility] [address] [address] 11/27/2023 Devoraterry Hudson MDD (major depressiv e disorder), recurrent episode, mild F33.0 ; Attention deficit hyperactivity disorder (ADHD), combined type F90.2 and MO (generalized anxiety disorder) F41.[address] [address] 12/25/2023 Devoraterry Jacobsenilla [address] [address] 12/27/2023 Devora Kurilla MDD (major depressiv e disorder), recurrent episode, mild F33.0 ; Attention deficit hyperactivity disorder (ADHD), combined type F90.2 and MO (generalized anxiety disorder) F41.1 [place] [address] [address] 02/26/2024 Devora Kurilla MDD (major depressiv e disorder), recurrent episode, mild F33.0 ; Attention deficit hyperactivity disorder (ADHD), combined type F90.2 and MO (generalized anxiety disorder) F41.[address] [address] 05/22/2024 Devora Kurilla MDD (major depressiv e disorder), recurrent episode, mild F33.0 ; Attention deficit hyperactivity disorder (ADHD), combined type F90.2 and MO (generalized anxiety disorder) F41.[address] [address] 06/19/2024 Devoraterry Hudson Encounter for screening for depression Z13.31 ; MDD (major depressive disorder), recurrent episode, mild F33.0 ; Attention deficit hyperactivity disorder (ADHD), combined type F90.2 and MO (generalized anxiety disorder) F41.[address] [address] 09/18/2024 Devora Kurilla Attention deficit hyperactivity disorder (ADHD), combined type F90.2 ; MDD (major depressive disorder), recurrent episode, mild F33.0 ; MO (generalized anxiety disorder) F41.1 ; Encounter for screening for depression Z13.31 and Negative depression screening Z13.31 [facility], [facility] [address] [place] [address] 08/21/2024 Devoraterry Hudson [facility], [facility] [address] [place] [address] 12/01/2023 Devora Ann-Marieilla [facility], [facility] [address] [place] [address] 12/09/2023 Devora Kurilla Attention deficit hyperactivity disorder (ADHD), combined type F90.2 [facility], [place] [address] [place] [address] 01/24/2024 Devora Kurilla Attention deficit hyperactivity disorder (ADHD), combined type F90.2 [facility], [facility] [address] [place] [address] 02/19/2024 Jacinda Richter Attention deficit hyperactivity disorder (ADHD), combined type F90.2 [facility], [facility] [address] [place] [address] 03/27/2024 Devora Kurilla Attention deficit hyperactivity disorder (ADHD), combined type F90.2 [facility], [facility] [address] [place] [address] 04/23/2024 Devora Kurilla Attention deficit hyperactivity disorder (ADHD), combined type F90.2 [facility], [facility] [address] [place] [address] 08/31/2024 Devora Kurilla MDD (major depressiv e disorder), recurrent episode, mild F33.0 and Attention deficit hyperactivity disorder (ADHD), combined type F90.2 [facility], [facility] [address] [place] [address] 10/08/2024 Devoraterry Hudson [facility], [facility] [address] [place] [address] 10/12/2024 Devoraterry Hudson [facility], [facility] [address] [place] [address] 11/03/2024 Devora Hudson [facility], [facility] [address] [place] [address] 11/03/2024 Devora Hudson Assessments Encounter Date Diagnosis (ICD Code) Assessment [...] to a new medication List all the [facility] medications that you are considering for augmentation or starting/switchi ng to Medication considered [id number] Citalopram (Celexa), FMN1T93 Escitalopram (Lexapro) and ZTC7D99 Sertraline (Zoloft) I'm considering a dosage adjustment [...] therapeutic effects of psychotropic medications. -[facility] 06/19/2024 Other Increase Wellbutrin to 300mg [...] therapeutic effects of psychotropic medications. -Crisis prevention [facility] 988. 09/18/2024 Other Stable on current medication [...] therapeutic effects of psychotropic medications. -Crisis prevention [facility] 988. 08/21/2024 Other Electronic Prio r Authorization was requested for buPROPion HCl ER (XL) 300 MG Tablet Extended Release 24 Hour. Provider can order medication once approval received. Plan Of Treatment Pending Test Test Name Order Date Cytochrome P450 2D6 Genotyping 5 Cytochrome P450 2C9 Genotyping 5 Cytochrome P450 2C19 09/18/2024 Next Appt Details Provider Name:Devora Victoria aren, 02/03/2025 09:45:00 AM, [address], [address], [place], [address], Insurance Providers Payer Name Payer Address Payer Phone Subscriber Number Group Number Insured Name Patient Relationship to Insured Coverage Start Date Coverage End Date [facility] [address] [place] [address] [id number] FREDRICK ARIZMENDI Self - patient is the insured Medicaid-[place] Medicaid [address] [address] [place] [address] [id number] FREDRICK ARIZMENDI Self - patient is the insured Medical (General) History Medical History History ICD Code Problems: Attention deficit hyperactivit y disorder, combined type Chronic post-traumatic stress disorder Generalized anxiety disorder Moderate recurrent major depression , Surgical History Surgery Date(Month/Year) Breast surgery () 04/26/2021
--- OUTSIDE RECORDS SUMMARY | 2024-11-18 11:53 | XMS_ITS | Clinical Summary ---
Author Organization [facility] Address [address] [address] Care Team Providers Care Outside Machinist Name Role Phone Unavailable Primary Care Provider Unavailabl e Source Comments [facility],non-owned Affiliates and Associated Physician Practices is amultiple site organization consisting of ambulatory clinics and hospital sitesin [place], [place], [place] and [place]. This disclosure is being madepursuant to the Care Everywhere program and may not contain all information available regarding this patient. Last updated 17.[facility] Allergies No known active allergies Medications * [...] Type Department Care Team Description 09/24/[address] [address] Arpita Allen Appointment 08/24/2024 Orders Only [address] [address] [employer] regist[employer] history of congenital heart defect from Last [...] Care Team (Late st Contact Info) Description 11/25/2024 10:30 AM CDT Appointment [address] [address] Rod Mahan MD [facility] [place] [address] [address] [place] [address] 11/25/2024 10:30 AM CDT Appointment [address] [address] Rod Mahan MD [address] [facility] [address] [place] [address] Health Maintenance Due Date Last Done Comments HIV SCREENING 08/14/2014 HPV VACCINE (1 - 3-dose series) 08/14/2014 CHLAMYDIA/GONORRHEA SCREENING 2015 HEPATITIS C SCREENING 08/10/2017 DTAP/TDAP/TD VACCINES (1 - Tdap) 08/14/2018 HEPATITIS B VACCINE (1 of 3 - 19+ 3-dose series) 08/14/2018 PAP SMEAR 08/14/2020 COVID-19 VACCINE (1 2023-2 5 season) 2023 DEPRESSION SCREENING 03/25/2024 [...] on patient's age to complete this topic Insurance MEDICAID - [place] [id number]
--- OUTSIDE RECORDS SUMMARY | 2024-11-18 11:53 | XMS_ITS | Clinical Summary ---
Author Organization [facility] Address [address] [place] [address] Phone Care Team Providers Care Yoker Name Role Phone Unavailable Primary Care Provider [...] on file Legal Sex Female 1:07 PM PAN RECLAIM PROCESSOR Gender Identity Not on file Sexual Orientation Not on file Last Filed Vital Signs Vital Sign Reading Time Taken Comments Blood Pressure - - Pulse - - Temperature - - Respiratory Rate - - Oxygen Saturation - - Inhaled Oxygen Concentration - - Weight 59.4 kg (131 lb) 02/25/2024 1:00 PM PAN RECLAIM PROCESSOR Height 157.5 cm (5' 2) 02/25/2024 1:00 PM PAN RECLAIM PROCESSOR Body Mass Index 23.96 02/25/2024 1:00 PM PAN RECLAIM PROCESSOR Plan of Treatment Not on file Insurance [place]
[2024-11-18 12:51] LABS: Hematocrit 35.5 % (37.0-47.0); Hemoglobin 11.7 g/dL (12.0-15.0); Immature Granulocyte Percent A 0.8 % (0-0.5); Lymphocytes Absolute Auto 1.30 K/mm3 (0.9-3.2); Mean Corpuscular HGB Conc 33.0 g/dl (32-36); Mean Corpuscular Hemoglobin 31.6 pg (26-34); Mean Corpuscular Volume 95.9 fl (80-100); Nucleated Red Blood Cells Absolute Auto 0.000 K/mm3 (0.0-0.012); Nucleated Red Blood Cells Perc 0.0 % (0.0-0.2); Platelet Count Result 143 k/mm3 (150-375); Red Blood Count 3.70 M/mm3 (4.2-5.4); White Blood Count 8.9 K/mm3 (4.5-10.0)
[2024-11-18 13:10] LABS: Glucose 1 Hour PP 50gm Dose 95 mg/dL
[2024-11-18 13:39] LABS: Syphilis IgG/IgM Antibody Non-Reactive (Nonreactive)
[2024-11-18 13:50] LABS: HIV 1/2 Ab P24 Ag Result Negative (Negative)
== END 2024-11-18 11:36 | disposition home or self-care (01) ==
LOC: ANHLAB 11:38
PROVIDERS: PCP Physician Assistant; Visit Provider Obstetrics & Gynecology
DX: Z34.90 Encounter for supervision of normal pregnancy, unspecified, unspecified trimester (principal); Z3A.00 Weeks of gestation of pregnancy not specified
CPT/HCPCS: 36415; 82947; 85025; 86593; 86703; G0432

== ENCOUNTER 2024-12-23 17:47 | Outpatient (CLI) | payer BC, MEDICAID, SELFPAY ==
[2024-12-23] VITALS (16 sets, daily range): BP systolic 114–135; BP diastolic 69–84; PULSE 72–108; O2SAT 93–100
--- OUTSIDE RECORDS SUMMARY | 2024-12-23 17:55 | XMS_ITS | Data Portability ---
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 Plan of Treatment Reminders Order Date Submit Date Provider Last Modified By Organization Details Last Modified Time Details Appointments ANY 15 2024 11:00A M CRISTOFER Singh Not available Not available Not available Lab TSH + free T4, serum 2023 024 [facility], [address] [place] [address], [id number], 03/05/2024 10:43:30 CMP, serum or plasma 2023 024 [facility], [address] [place] [address], [address], 02/26/2024 16:19:24 CBC w/ auto diff 2023 024 [facility], [address] [place] [address], [address], 02/26/2024 16:19:25 vitamin B12 + folate, serum or blood 2023 024 [facility], [address] [place] [address], [address], 03/05/2024 10:43:24 lipid panel, serum 2023 024 [facility], [address] [place] [address], [address], 02/27/2024 08:40:53 HbA1c (hemoglob in A1c), blood 2023 024 [facility], [facility] [address] [place] [address], [address], 02/27/2024 10:09:56 TSH + free T4, serum 2023 024 [facility], [address] [place] [address] [place] [address], [address], 02/27/2024 08:40:54 lipid panel, serum 2023 024 [facility], [address] [place] [address], [address], 02/26/2024 16:19:25 CMP, serum or plasma 2023 024 [facility], [address] [place] [address], [address], 02/27/2024 08:40:53 CBC w/ auto diff 2023 024 [facility], [address] [place] [address], [address], 06/22/2024 14:41:41 vitamin B12 + folate, serum or blood 2023 024 [facility], [address] [place] [address], [address], 06/24/2024 09:31:52 HbA1c (hemoglob in A1c), blood 2023 024 [facility], [facility] [address], [address], 06/24/2024 09:31:52 bacterial vaginosis + vaginitis panel, vaginal 2019 020 [facility], [address] [place] [address], [address], [place], [address], 07/02/2019 15:07:52 CBC w/ auto diff 2019 [facility], [address] [facility], [address], [place], [address], 06/30/2019 06:12:39 ferritin, serum or plasma 2019 [facility], [address] [facility], [address], [place], [address], 06/30/2019 06:12:41 TIBC (total iron-bind ing capacity) , serum 2019 020 [facility], [address] [place] [address], [address], [place], [address], 06/30/2019 06:12:39 HCG, intact + beta subunit, quant, serum or plasma 2019 020 [facility], [address] [place] [address], [address], [place], [address], 06/30/2019 06:12:40 Referral None recorded. Procedures None recorded. Surgeries None recorded. Imaging CT, abdomen + pelvis, w/ contrast 2023 [facility], [address], [place], [address], 02/26/2024 15:06:24 US, pelvis, transabdo nava + transvagi nal 2019 [facility] ([facility]), [address] [place], [address], 07/06/2019 13:46:24 Medication Orders Wegovy 1.7 mg/0.75 mL subcutane ous pen injector 2023 024 [place] [id number] In [facility], [address] [place], [address], 02/06/2024 13:22:50 Bactrim DS 800 mg-160 mg tablet 2023 024 [facility] [address], [address], 11/28/2023 14:02:36 Wegovy 0.25 mg/0.5 mL subcutane ous pen injector 2023 024 [email or web address] [id number], [address], 09/18/2023 18:37:25 Patient TargetsNo targets recorded. Patient Instructions Encounter Date Encounter Id Patient Instructions Last Modified By Organization Details Last Modified Time 08/29/2023 [id number] A healthy lifestyle: care instructions [email or web address] Not available 09/22/2023 16:51:33 Reason for Referral None Reported. Results Created Date Observation Date Name Description Value Unit Range Abnormal Flag Note LastModifiedBy Organization Detail LastModifiedTime 06/29/19 20 06/30/2019 CBC w/ auto diff WBC 9.6 x10e3 /uL 3.4-10 .8 Not Available [facility] [address] [place], [address], 06/30/2019 06:12:39 06/29/1906/30/2019 CBC w/ auto diff RBC 4.57 x10e6 /uL 3.77-5 .28 Not Available [facility] [address] [place], [address], 06/30/2019 06:12:39 06/29/1906/30/2019 CBC w/ auto diff hemoglobin 14.2 g/dL 11.1-1 5.9 Not Available [facility]) [address] [place], [address], 06/30/2019 06:12:39 06/29/1906/30/2019 CBC w/ auto diff hematocrit 42.3 % 34.0-4 6.6 Not Available [facility]) [address] [facility], [place], [address], 06/30/2019 06:12:39 06/29/19 20 06/30/2019 CBC w/ auto diff MCV 93 fL 79-97 Not Available [facility]) [address] [facility], [place], [address], 06/30/2019 06:12:39 06/29/19 20 06/30/2019 CBC w/ auto diff MCH 31.1 pg 26.6-3 3.0 Not Available [facility]) [address] [facility], [place], [address], 06/30/2019 06:12:39 06/29/19 20 06/30/2019 CBC w/ auto diff MCHC 33.6 g/dL 31.5-3 5.7 Not Available [facility]) [address] [facility], [place], [address], 06/30/2019 06:12:39 06/29/1906/30/2019 CBC w/ auto diff RDW 12.1 % 11.7-1 5.4 Not Available [facility]) [address] [facility], [place], [address], 06/30/2019 06:12:39 06/29/1906/30/2019 CBC w/ auto diff platelets 298 x10e3 /uL 150-45 0 Not Available [facility]) [address] [facility], [place], [address], 06/30/2019 06:12:39 06/29/19 20 06/30/2019 CBC w/ auto diff neutrophils 70 % not estab. Not Available [facility]) [address] [facility], [place], [address], 06/30/2019 06:12:39 06/29/1906/30/2019 CBC w/ auto diff lymphs 19 % not estab. Not Available [facility]) [address] [place], [address], 06/30/2019 06:12:39 06/29/19 20 06/30/2019 CBC w/ auto diff monocytes 9 % not estab. Not Available [facility] [address] [place], [address], 06/30/2019 06:12:39 06/29/19 20 06/30/2019 CBC w/ auto diff eos 1 % not estab. Not Available [facility] [address] [place], [address], 06/30/2019 06:12:39 06/29/19 20 06/30/2019 CBC w/ auto diff basos 0 % not estab. Not Available [facility] [address] [place], [address], 06/30/2019 06:12:39 06/29/19 20 06/30/2019 CBC w/ auto diff immature cells CERTIFIED MAINTENANCE WELDER Not Available [facility] [address] [place], [address], 06/30/2019 06:12:39 06/29/19 20 06/30/2019 CBC w/ auto diff neutrophils (absolute) 6.8 x10e3 /uL 1.4-7. 0 Not Available [facility] [address] [place], [address], 06/30/2019 06:12:39 06/29/19 20 06/30/2019 CBC w/ auto diff lymphs (absolute) 1.8 x10e3 /uL 0.7-3. 1 Not Available [facility] [address] [place], [address], 06/30/2019 06:12:39 06/29/19 20 06/30/2019 CBC w/ auto diff monocytes(ab solute) 0.9 x10e3 /uL 0.1-0. 9 Not Available [facility] [address] [facility], [place], [address], 06/30/2019 06:12:39 06/29/1906/30/2019 CBC w/ auto diff eos (absolute) 0.1 x10e3 /uL 0.0-0. 4 Not Available [facility] [address] [facility], [place], [address], 06/30/2019 06:12:39 06/29/1906/30/2019 CBC w/ auto diff baso (absolute) 0.0 x10e3 /uL 0.0-0. 2 Not Available [facility] [address] [facility], [place], [address], 06/30/2019 06:12:39 06/29/1906/30/2019 CBC w/ auto diff immature granulocytes 1 % not estab. Not Available [facility] [address] [facility], [place], [address], 06/30/2019 06:12:39 06/29/1906/30/2019 CBC w/ auto diff immature grans (abs) 0.1 x10e3 /uL 0.0-0. 1 Not Available [facility] [address] [facility], [place], [address], 06/30/2019 06:12:39 06/29/1906/30/2019 CBC w/ auto diff NRBC CERTIFIED MAINTENANCE WELDER Not Available [facility] [address] [facility], [place], [address], 06/30/2019 06:12:39 06/29/1906/30/2019 CBC w/ auto diff hematology comments: CERTIFIED MAINTENANCE WELDER Not Available [facility] [address] [facility], [place], [address], 06/30/2019 06:12:39 06/29/192020 TIBC (tota l iron- petar ng capac ity), serum iron bind.cap.(TI BC) 379 ug/dL 250-45 0 Not Available [facility]) [address] [place], [address], 06/30/2019 06:12:39 06/29/19 20 06/30/2019 TIBC (tota l iron- petar ng capac ity), serum UIBC 279 ug/dL 131-42 5 Not Available [facility] [address] [place], [address], 06/30/2019 06:12:39 06/29/19 20 06/30/2019 TIBC (tota l iron- petar ng capac ity), serum iron 100 ug/dL 27-159 Not Available [facility] [address] [place], [address], 06/30/2019 06:12:39 06/29/19 20 06/30/2019 TIBC (tota l iron- petar ng capac ity), serum iron saturation 26 % 15-55 Not Available [facility]) [address] [place] [address], [address], 06/30/2019 06:12:39 06/29/1906/30/2019 HCG, intac t + beta subun it, quant , serum or plasm a HCG,beta subunit,qnt, serum <1 mIU/m L Femal e (Non- pregn ant) 0 - 5 (Post menop ausal ) 0 - 8 Femal e (Preg nant) Weeks of Gesta tion 3 6 - 71 4 10 - 750 5 424 - 7057 6 707 - 59482 7 3374 -3081 63 8 85927 -8337 71 9 52249 -1997 10 10 75094 -6999 77 12 73725 -7047 12 14 99226 - 12112 15 57094 - 74438 16 6090 - 79266 17 6847 - 26777 18 8972 - 57747 Shasta ECLIA metho dolog y Not Available [facility] ([facility]) [address] [place], [address], 06/30/2019 06:12:40 06/29/19 20 06/30/2019 naeem tin, serum or plasm a ferritin, serum 197 NG/mL 15-77 above high normal Not Available [facility]) [address] [place], [address], 06/30/2019 06:12:41 06/29/19 20 07/01/2019 bacte rial vagin osis + vagin itis panel , vagin al atopobium vaginae Modera te - 1 score Not Available [facility]) [address] [place], [address], 07/02/2019 15:07:52 06/29/19 20 07/01/2019 bacte rial vagin osis + vagin itis panel , vagin al bvab 2 Modera te - 1 score Not Available [facility]) [address] [place], [address], 07/02/2019 15:07:52 06/29/19 20 07/01/2019 bacte rial vagin osis + vagin itis panel , vagin al megasphaera 1 High - 2 score abnormal Calcu late total score by emily hawkins the 3 indiv idual bacte rial vagin [...] is not neces kaylen. Not Available [facility] ([facility]) [address] [place], [address], 07/02/2019 15:07:52 06/29/19 20 07/02/2019 bacte rial vagin osis + vagin itis panel , vagin al lluvia albicans, MICK Positi ve negati ve abnormal Not Available [facility] ([facility]) [address] [place], [address], 07/02/2019 15:07:52 06/29/19 20 07/02/2019 bacte rial vagin osis + vagin itis panel , vagin al lluvia glabrata, MICK Negati ve negati ve Not Available [facility] ([facility]) [address] [place], [address], 07/02/2019 15:07:52 06/29/19 20 07/02/2019 bacte rial vagin osis + vagin itis panel , vagin al trich vag by MICK Negati ve negati ve Not Available [facility] ([facility]) [address] [place], [address], 07/02/2019 15:07:52 06/29/19 20 07/02/2019 bacte rial vagin osis + vagin itis panel , vagin al chlamydia trachomatis, MICK Negati ve negati ve Not Available [facility] ([facility]) [address] [place], [address], 07/02/2019 15:07:52 06/29/19 20 07/02/2019 bacte rial vagin osis + vagin itis panel , vagin al neisseria gonorrhoeae, MICK Negati ve negati ve Not Available [facility] ([facility]) [address] [place], [address], 07/02/2019 15:07:52 06/30/19 20 07/01/2019 CBC w/ auto diff WBC 6.5 x10e3 /uL 3.4-10 .8 Not Available [facility]) [address] [facility], [place], [address], 07/01/2019 11:08:09 06/30/19 20 07/01/2019 CBC w/ auto diff RBC 4.62 x10e6 /uL 3.77-5 .28 Not Available [facility] [address] [facility], [place], [address], 07/01/2019 11:08:09 06/30/19 20 07/01/2019 CBC w/ auto diff hemoglobin 14.3 g/dL 11.1-1 5.9 Not Available [facility]) [address] [facility], [place], [address], 07/01/2019 11:08:09 06/30/19 20 07/01/2019 CBC w/ auto diff hematocrit 43.5 % 34.0-4 6.6 Not Available [facility]) [address] [facility], [place], [address], 07/01/2019 11:08:09 06/30/1907/01/2019 CBC w/ auto diff MCV 94 fL 79-97 Not Available [facility]) [address] [facility], [place], [address], 07/01/2019 11:08:09 06/30/19 20 07/01/2019 CBC w/ auto diff MCH 31.0 pg 26.6-3 3.0 Not Available [facility]) [address] [place], [address], 07/01/2019 11:08:09 06/30/19 20 07/01/2019 CBC w/ auto diff MCHC 32.9 g/dL 31.5-3 5.7 Not Available [facility]) [address] [place], [address], 07/01/2019 11:08:09 06/30/19 20 07/01/2019 CBC w/ auto diff RDW 11.9 % 11.7-1 5.4 Not Available [facility] [address] [facility], [place], [address], 07/01/2019 11:08:09 06/30/19 20 07/01/2019 CBC w/ auto diff platelets 303 x10e3 /uL 150-45 0 Not Available [facility] [address] [facility], [place], [address], 07/01/2019 11:08:09 06/30/19 20 07/01/2019 CBC w/ auto diff neutrophils 57 % not estab. Not Available [facility] [address] [facility], [place], [address], 07/01/2019 11:08:09 06/30/19 20 07/01/2019 CBC w/ auto diff lymphs 32 % not estab. Not Available [facility] [address] [facility], [place], [address], 07/01/2019 11:08:09 06/30/19 20 07/01/2019 CBC w/ auto diff monocytes 8 % not estab. Not Available [facility]) [address] [facility], [place], [address], 07/01/2019 11:08:09 06/30/19 20 07/01/2019 CBC w/ auto diff eos 1 % not estab. Not Available [facility] [address] [facility], [place], [address], 07/01/2019 11:08:09 06/30/19 20 07/01/2019 CBC w/ auto diff basos 1 % not estab. Not Available [facility]) [address] [facility], [place], [address], 07/01/2019 11:08:09 06/30/19 20 07/01/2019 CBC w/ auto diff immature cells CERTIFIED MAINTENANCE WELDER Not Available [facility] [address] [place], [address], 07/01/2019 11:08:09 06/30/19 20 07/01/2019 CBC w/ auto diff neutrophils (absolute) 3.7 x10e3 /uL 1.4-7. 0 Not Available [facility]) [address] [place], [address], 07/01/2019 11:08:09 06/30/19 20 07/01/2019 CBC w/ auto diff lymphs (absolute) 2.1 x10e3 /uL 0.7-3. 1 Not Available [facility]) [address] [place], [address], 07/01/2019 11:08:09 06/30/19 20 07/01/2019 CBC w/ auto diff monocytes(ab solute) 0.5 x10e3 /uL 0.1-0. 9 Not Available [facility]) [address] [place], [address], 07/01/2019 11:08:09 06/30/19 20 07/01/2019 CBC w/ auto diff eos (absolute) 0.1 x10e3 /uL 0.0-0. 4 Not Available [facility]) [address] [place], [address], 07/01/2019 11:08:09 06/30/19 20 07/01/2019 CBC w/ auto diff baso (absolute) 0.0 x10e3 /uL 0.0-0. 2 Not Available [facility]) [address] [place], [address], 07/01/2019 11:08:09 06/30/19 20 07/01/2019 CBC w/ auto diff immature granulocytes 1 % not estab. Not Available [facility]) [address] [place], [address], 07/01/2019 11:08:09 06/30/19 20 07/01/2019 CBC w/ auto diff immature grans (abs) 0.0 x10e3 /uL 0.0-0. 1 Not Available [facility]) [address] [facility], [place], [address], 07/01/2019 11:08:09 06/30/19 20 07/01/2019 CBC w/ auto diff NRBC CERTIFIED MAINTENANCE WELDER Not Available [facility]) [address] [facility] [place], [address], 07/01/2019 11:08:09 06/30/19 20 07/01/2019 CBC w/ auto diff hematology comments: CERTIFIED MAINTENANCE WELDER Not Available [facility] [address] [facility], [place], [address], 07/01/2019 11:08:09 06/30/19 20 07/01/2019 CMP, serum or plasm a glucose 91 mg/dL 65-99 Not Available [facility]) [address] [facility] [place], [address], 07/01/2019 11:08:10 06/30/19 20 07/01/2019 CMP, serum or plasm a BUN 14 mg/dL 6-20 Not Available [facility]) [address] [facility], [place], [address], 07/01/2019 11:08:10 06/30/19 20 07/01/2019 CMP, serum or plasm a creatinine 0.74 mg/dL 0.57-1 .00 Not Available [facility]) [address] [facility] [place], [address], 07/01/2019 11:08:10 06/30/19 20 07/01/2019 CMP, serum or plasm a eGFR if nonafricn AM 118 mL/mi n/1.7 3 >59 Not Available [facility] ([facility]) [address] [place], [address], 07/01/2019 11:08:10 06/30/19 20 07/01/2019 CMP, serum or plasm a eGFR if africn AM 136 mL/mi n/1.7 3 >59 Not Available [facility]) [address] [place], [address], 07/01/2019 11:08:10 06/30/19 20 07/01/2019 CMP, serum or plasm a BUN/creatini ne ratio 19 9-23 Not Available [facility]) [address] [place], [address], 07/01/2019 11:08:10 06/30/19 20 07/01/2019 CMP, serum or plasm a sodium 140 mmol/ L 134-14 4 Not Available [facility]) [address] [place], [address], 07/01/2019 11:08:10 06/30/19 20 07/01/2019 CMP, serum or plasm a potassium 4.1 mmol/ L 3.5-5. 2 Not Available [facility]) [address] [place], [address], 07/01/2019 11:08:10 06/30/19 20 07/01/2019 CMP, serum or plasm a chloride 99 mmol/ L 96-106 Not Available [facility]) [address] [place], [address], 07/01/2019 11:08:10 06/30/19 20 07/01/2019 CMP, serum or plasm a carbon dioxide, total 23 mmol/ L 20-29 Not Available [facility]) [address] [place], [address], 07/01/2019 11:08:10 06/30/19 20 07/01/2019 CMP, serum or plasm a calcium 9.7 mg/dL 8.7-10 .2 Not Available [facility]) [address] [facility] [place], [address], 07/01/2019 11:08:10 06/30/19 20 07/01/2019 CMP, serum or plasm a protein, total 7.1 g/dL 6.0-8. 5 Not Available [facility]) [address] [facility] [place], [address], 07/01/2019 11:08:10 06/30/19 20 07/01/2019 CMP, serum or plasm a albumin 4.8 g/dL 3.9-5. 0 Not Available [facility]) [address] [facility] [place], [address], 07/01/2019 11:08:10 06/30/19 20 07/01/2019 CMP, serum or plasm a globulin, total 2.3 g/dL 1.5-4. 5 Not Available [facility]) [address] [facility] [place], [address], 07/01/2019 11:08:10 06/30/19 20 07/01/2019 CMP, serum or plasm a A/G ratio 2.1 1.2-2. 2 Not Available [facility]) [address] [place], [address], 07/01/2019 11:08:10 06/30/19 20 07/01/2019 CMP, serum or plasm a bilirubin, total 0.8 mg/dL 0.0-1. 2 Not Available [facility]) [address] [facility] [place], [address], 07/01/2019 11:08:10 06/30/19 20 07/01/2019 CMP, serum or plasm a alkaline phosphatase 85 IU/L 39-117 Not Available [facility] [address] [place], [address], 07/01/2019 11:08:10 06/30/19 20 07/01/2019 CMP, serum or plasm a AST (SGOT) 19 IU/L 0-40 Not Available [facility]) [address] [place], [address], 07/01/2019 11:08:10 06/30/19 20 07/01/2019 CMP, serum or plasm a ALT (SGPT) 17 IU/L 0-32 Not Available [facility]) [address] [place], [address], 07/01/2019 11:08:10 06/30/19 20 07/01/2019 iron + total iron- petar ng capac ity (TIBC ), serum iron bind.cap.(TI BC) 368 ug/dL 250-45 0 Not Available [facility] ([facility]) [address] [place], [address], 07/01/2019 11:08:10 06/30/19 20 07/01/2019 iron + total iron- petar ng capac ity (TIBC ), serum UIBC 234 ug/dL 131-42 5 Not Available [facility]) [address] [place], [address], 07/01/2019 11:08:10 06/30/19 20 07/01/2019 iron + total iron- petar ng capac ity (TIBC ), serum iron 134 ug/dL 27-159 Not Available [facility]) [address] [place], [address], 07/01/2019 11:08:10 06/30/19 20 07/01/2019 iron + total iron- petar ng capac ity (TIBC ), serum iron saturation 36 % 15-55 Not Available [facility] [address] [place], [address], 07/01/2019 11:08:10 06/30/19 20 07/01/2019 hepat itis panel (A+B+ C), acute , serum hep A Ab, IgM Negati ve negati ve Not Available [facility] ([facility]) [address] [place], [address], 07/01/2019 11:08:11 06/30/19 20 07/01/2019 hepat itis panel (A+B+ C), acute , serum HBsAg screen Negati ve negati ve Not Available [facility] ([facility]) [address] [place], [address], 07/01/2019 11:08:11 06/30/19 20 07/01/2019 hepat itis panel (A+B+ C), acute , serum hep B core Ab, IgM Negati ve negati ve Not Available [facility] ([facility]) [address] [place], [address], 07/01/2019 11:08:11 06/30/19 20 07/01/2019 hepat itis [...] ion test (5507 [id number]). Not Available [facility]) [address] [facility], [place], [address], 07/01/2019 11:08:11 06/30/19 20 07/01/2019 HbA1c (hemo globi n A1c), blood hemoglobin A1C 4.7 % 4.8-5. 6 below low normal Predi abete s: 5.7 - 6.4 Diabe indu: >6.4 Glyce angie contr ol for adult s with diabe indu: <7.0 Not Available [facility] ([facility]) [address] [place], [address], 07/01/2019 11:08:12 06/30/19 20 07/01/2019 HOME (anti nucle ar antib odies ) scree n, serum HOME direct Negati ve negati ve Not Available [facility]) [address] [facility], [place], [address], 07/01/2019 11:08:12 06/30/19 20 07/01/2019 naeem tin, serum or plasm a ferritin, serum 228 NG/mL 15-77 above high normal Not Available [facility]) [address] [facility], [place], [address], 07/01/2019 11:08:13 09/16/19 20 09/16/2019 tissu e trans gluta jenny e Ab, serum comment Commen t Not Available [facility] [address] [place], [address], 09/29/2019 09:12:55 09/16/1909/29/2019 tissu e trans gluta jenny e Ab, serum tragl IgG <1.2 U/mL <6.0 Refer ence Range Negat jax < 6.0 U/mL Weak Posit jax 6.0 - 9.0 U/mL Posit jax > 9.0 U/mL Not Available [facility] [address] [place], [address], 09/29/2019 09:12:55 09/16/1909/29/2019 tissu e trans gluta jenny e Ab, serum tragl IgM <1.0 U/mL <9.6 Refer ence Range Negat jax < 9.6 U/mL Equiv ocal 9.6 - 12.4 U/mL Posit jax > 12.4 U/mL The perfo rmanc e praveena cteri stics of the Trans gluta jenny e IgM assay was valid ated by [employer] The [place] FDA has not appro tremaine or clear ed this test. The resul ts of this assay can be used for clini beba diagn osis witho ut FDA appro nitza. [employer] is a CLIA certi fied, CAP accre dited labor atory for perfo rming high compl exity assay s such as this one. Testi ng Perfo rmed at: [employer] [facility] [address], [place] [address] Not Available [employer] [employer] [address] [facility], [place], [address], 09/29/2019 09:12:55 09/16/19 20 09/29/2019 tissu e trans gluta jenny e Ab, serum tragl IgA <1.2 U/mL <4.0 Refer ence Range Negat jax < 4.0 U/mL Weak Posit jax 4.0 - 10.0 U/mL Posit jax > 10.0 U/mL Not Available [employer] [address] [facility] [place], [address], 09/29/2019 09:12:55 07/06/19 20 07/06/2019 US, pelvi s, trans abdom inal + trans vagin al No observ ation record ed. [facility] ([facility]) [address] [place], [address], 07/07/2019 09:43:49 02/26/20 24 02/26/2024 CT, abdom en + pelvi s, w/ contr ast No observ ation record ed. [email or web address] [id number] [address], [address], 03/04/2024 12:12:46 09/18/19 25 09/17/2024 [place], breas t No observ ation record ed. [email or web address] [address], [address], 09/18/2024 06:32:46 Result Notes None recorded. Problems Name Problem SNOMED Code Status Onset Date Resolution Date Notes Provider Name and Address Organization Details Recorded Time Serum ferritin above reference range 566860131 Active 2019 CRISTOFER POE Attn: Gricel g,[address] [facility], [place], [address], [place] [facility] 0 13:34:05 Chronic pelvic pain of female 269087792 Active 2019 CRISTOFER POE Attn: Gricel g,[address] [facility], [place], [address], [place] [facility] 0 14:12:39 Obesity 288021158 Active 2023 CRISTOFER Singh Attn: Accountin g,[address] [facility], [place], [address], [place] [facility] 4 16:51:27 Body mass index 25-29 - overweight 732786487 Active 2023 Mariana Lara [place] null[place] [facility] 4 14:05:25 Dysfunction of bilateral eustachian tubes 6960494946350 100 Active 2023 CRISTOFER Singh Attn: Accountgita g,[address] [facility], [place], [address], [place] [facility] 4 12:06:09 Body mass index 20-24 - normal 338699133 Active 2023 CRISTOFER Singh Attn: Gricel g,[address] [facility], [place], [address], [place] [facility] 4 12:06:29 Problem [...] 0 158.75 cm 33.4 kg/m2 96 % 59634.3 9 g 94 /min 98.8 [degF] 98 % 98 % 104/68 mm[Hg] Rosio Grigsby MA [facility] 0 14:16:49 Date Recorded Respiratory rate Systolic And Diastolic Provider Name and Address Organization Details Last Updated DateTime 08/29/2023 18 /min 120/80 mm[Hg] CRISTOFER Singh Attn: Accounting,[address] [place], [address], [facility] 08/29/2023 14:43:33 Date Recorded Body weight Oxygen saturation Oxygen saturation in Arterial blood by Pulse oximetry Heart rate Body mass index (BMI) Body height Systolic And Diastolic Provider Name and Address Organization Details Last Updated DateTime 4 98055.9 4 g 99 % 99 % 133 /min 33.1 kg/m2 161.93 cm 112/72 mm[Hg] Mariana Lara MA [facility] 4 14:20:58 Date Recorded Systolic And Diastolic Provider Name and Address Organization Details Last Updated DateTime 11/28/2023 120/80 mm[Hg] CRISTOFER Singh Attn: Accounting,[address] [place], [address], [facility] 11/28/2023 14:24:13 Date Recorded Body height Body mass index (BMI) Body weight Respiratory rate Oxygen saturation Oxygen saturation in Arterial blood by Pulse oximetry Heart rate Systolic And Diastolic Provider Name and Address Organization Details Last Updated DateTime 4 161.93 cm 27 kg/m2 18925.5 5 g 18 /min 99 % 99 % 88 /min 126/82 mm[Hg] Mariana Lara MA [facility] 14:08:44 Date Recorded Systolic And Diastolic Provider Name and Address Organization Details Last Updated DateTime 02/06/2024 110/80 mm[Hg] CRISTOFER Singh Attn: Accounting,[address] [place], [address], [facility] 02/06/2024 13:21:28 Date Recorded Body height Body mass index (BMI) Body weight Respiratory rate Provider Name and Address Organization Details Last Updated DateTime 02/06/2024 161.93 cm 24.2 kg/m2 81501.93 g 18 /min Mariana Lara MA [place] - [facility] 02/06/2024 12:50:14 Social History Question Answer Notes LastModified by Organizat ion Details LastModified Time Tobacco Smoking Status Never Smoker Rosio Grigsby MA null, [facility] 06/29/2019 14:19:34 Do You Have An [...] 06/29/2019 Are you able to care for yourself independently? Yes Information not available 06/29/2019 Do you [...] Response Coronary Artery Disease N Other N Atrial Fibrillation N High Blood Pressure Y Kidney or Bladder Problems N Thyroid Problems N GI Problems N Depression Y COPD N Blood Clots N Skin Problems N Anemia N Heart Attack (AK) N Anxiety Disorder N Diabetes N Muscle, Joint, or Bone Problems N Seizures/Epilepsy N Acid Reflux (GERD) N Cancer N Stroke N Asthma N Allergies N High Cholesterol N Hepatitis N Liver Disease N Headaches N Osteoporosis N Heart Failure N Gynecological History Statement/Question Response Flow Moderate [...] Recorded Time Hib, unspecified formulation 1 completed Mariana [place] [facility] 02/05/2024 16:12:55 Hib, unspecified formulation 3 completed Mariana [place] [facility] 02/05/2024 16:12:55 Hib, unspecified formulation 0 completed Mariana [place] [facility] 02/05/2024 16:12:55 Hib, unspecified formulation 0 completed [place] [facility] 02/05/2024 16:12:55 IPV 3 completed Mariana [place] [facility] 02/05/2024 16:12:55 IPV 3 completed Mar[place] [facility] 02/05/2024 16:12:55 IPV 5 angelica L[place] [facility] 02/05/2024 16:12:55 IPV 0 completed aMriana [place] [facility] 02/05/2024 16:12:55 IPV 0 [place] [facility] 02/05/2024 16:12:55 Influenza, live, trivalent, intranasal, PF 3 completed Mariana Lara MA null, [...] - [facility] 02/05/2024 16:12:55 Tdap 1 completed aMriana [place] [facility] 02/05/2024 [...] Hep B, adolescent or pediatric 0 completed F[place] [facility] 02/05/2024 16:12:55 Hep B, adolescent or pediatric 0 completed [place] [facility] 02/05/2024 16:12:55 Hep A, ped/adol, 2 dose 4 completed [place] [facility] 02/05/2024 16:12:55 Hep A, ped/adol, 2 dose 5 completed [place] [facility] 02/05/2024 16:12:55 meningococcal MCV4P 8 [place] [facility] 02/05/2024 16:12:55 DTaP 1 [place] [facility] 02/05/2024 16:12:55 DTaP 3 completed [place] [facility] 02/05/2024 16:12:55 DTaP 0 [place] [facility] 02/05/2024 16:12:55 DTaP 0 [place] [facility] 02/05/2024 16:12:55 DTaP, 5 pertussis antigens 5 completed [place] [facility] 02/05/2024 16:12:55 Influenza, split virus, quadrivalent, PF 3 completed [place] [facility] 02/05/2024 16:12:55 Past Encounters Encounter ID Performer Location Encounter Start Date Encounter Closed Date Diagnosis/Indication Diagnosis SNOMED-CT Code Diagnosis ICD10 Code Diagnosis IMO Codes Diagnosis Note [id number] CRISTOFER POE (Adult Med) [address] [place] [address] 06/29/2019 13:48:30 06/30/2019 09:51:24 Gynecologic examination 50649138 Z01.419 Complainin g of intermitte nt pelvic [...] to rule out infections Pain in pelvis 49524158 R10.2 Complainin g of intermitte nt pelvic [...] will order US of pelvis- will order CG to rule out ectopic Cervicitis with Nabothian cyst 844479244 N72 On PE: Inflammati on present with 3 small nabothian cysts above cervical os, mild discomfort during bimanual exam- provided her with informatio n regarding small cervical cysts Menorrhagia 681679131 N9 2.0 Used to be on the [...] before.- will check CBC and iron studies [id number] Quinton Silver MD [facility] - [place] [address] [place] [address] 08/29/2023 13:57:40 09/23/2023 15:58:02 Adult health examination 679427990 Z00.00 new pt well exam completed. labs ordered fasting. Body mass index 30+ - obesity 367363724 Z68.33 start wegovy injectable therapy. no personal or family hx of Medullary thyroid cancer or MEN conditions . Cholesterol screening 27 6505147 Z13.220 fasting lipids due. Long-term drug therapy 979681375 Z79.899 cmp, cbc and b12, folate labs are due Thyroid di sorder screening 131677576 Z13.29 thyroid panel due Diabetes m ellitus screening 750695988 Z13.1 a1c screening due Nipple infection 0870861 04 N61.0 empiric tx with bactrim DS bid x 10 days for suspected low grade nipple infection that did not resolve from breast feeding. Obesity 761673333 E66.8 discussed healthy diet, exercise, controllin g carbohydra indu and added sugars in the diet [id number] Quinton Silver MD [facility] [employer] [address] [place] [address] 11/28/2023 13:46:17 11/28/2023 15:30:00 Body mass index 25-29 - overweight 680320655 Z68.27 My is 27 Intentiona l weight loss 501601711 R63.8 Patient has lost 35 lb on Wegovy since August. Patient will continue dosing and be mindful of making sure she is getting enough protein and complex carbohydra indu and vegetables in her diet Patient ad vised about weight management 855378000 Z71.3 As above Dysfunctio n of bilateral eustachian tubes 4353086570 689403 H69.93 flonase NS and sudafed PE and take at least 2 weeks to see if this helps equalize pressure in back of ears. [id number] Quinton Silver MD [facility] [employer] [address] [place] [address] 02/06/2024 12:25:01 02/06/2024 14:47:33 Intentional weight loss 153694197 R63.8 Patient has lost 35 lb on Wegovy since August. Patient will continue dosing and be mindful of making sure she is getting enough protein and complex carbohydra indu and vegetables in her diet. She is going to titrate down in dose every few weeks on 1.7 mg weekly of Wegovy Dysfunctio n of bilateral eustachian tubes 2628240925 228971 H69.93 flonase NS and sudafed PE and take at least 2 weeks to see if this helps equalize pressure in back of ears. Umbilical pain 71072072 R10.[address] of the abdomen and pelvis with contrast to evaluate and confirm umbilical hernia Cholesterol screening 27 4620195 Z13.220 fasting lipids due. Long-term drug therapy 099128586 Z79.899 cmp, cbc and b12, folate labs are due Thyroid di sorder screening 404503251 Z13.29 thyroid panel due Diabetes m ellitus screening 546725941 Z13.1 a1c screening due Body mass index 20-24 - normal 382889043 Z68.24 BMI is 24.2 Health Concerns Section Related Observation LastModified by Organization Detai ls LastModified Time None Recorded Concern Status LastModified by Organization Details LastModified Time None Recorded Advance Directives Directive N: Payers Insurance Date Sequence Insurance Name Policy Number Policy Hartmann Covered Member ID Hartmann Member ID Guarantor Name 01/30/2024 1 [place] [employer] [facility] [id number] [facility] 02/24/2024 2 [place] [facility] [id number] [facility] 02/24/2024 1 [place] [id number] [facility] [id number] [facility] Notes Date Note Type Note Provider Name and Address Organization Details Recorded Time 06/29/2019 text/html ROS as noted in the HPI 18 year old female presents today to establish care. Complaining of [...] of iron-def. anemia before. CRISTOFER POE Attn: Accounting,[address] [facility], [place], [address], [facility] 06/29/2019 15:40:19 08/29/2023 text/html Pt. states that [...] have them checked . CRISTOFER Singh Attn: Accounting,[address] [facility], [place], [address], [facility] 09/22/2023 16:52:32 11/28/2023 text/html Patient is here [...] to have them examined CRISTOFER Singh Attn: Accounting,[address] [facility], [place], [address], [facility] 12/21/2023 21:18:42 02/06/2024 text/html Patient is here [...] losing over 35 lb. CRISTOFER Singh Attn: Accounting,[address] [facility], [place], [address], [facility] 02/22/2024 12:07:16 OBGyn Episode No OBEpisode recorded.
--- OUTSIDE RECORDS SUMMARY | 2024-12-23 17:55 | XMS_ITS | Clinical Summary ---
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
[2024-12-23 18:03] LABS: Hematocrit 38.1 % (37.0-47.0); Hemoglobin 12.6 g/dL (12.0-15.0); Immature Granulocyte Percent A 1.0 % (0-0.5); Lymphocytes Absolute Auto 2.08 K/mm3 (0.9-3.2); Mean Corpuscular HGB Conc 33.1 g/dl (32-36); Mean Corpuscular Hemoglobin 31.9 pg (26-34); Mean Corpuscular Volume 96.5 fl (80-100); Nucleated Red Blood Cells Absolute Auto 0.000 K/mm3 (0.0-0.012); Nucleated Red Blood Cells Perc 0.0 % (0.0-0.2); Platelet Count Result 141 k/mm3 (150-375); Red Blood Count 3.95 M/mm3 (4.2-5.4); White Blood Count 13.1 K/mm3 (4.5-10.0)
[2024-12-23 18:16] LABS: Alanine Aminotransferase 24 U/L (6-35); Albumin Level 3.9 g/dL (3.5-5.1); Alkaline Phosphatase 80 U/L (38-126); Anion Gap 8 mmol/L (4-12); Aspartate Amino Transferase 25 U/L (14-36); Bilirubin,Total 0.6 mg/dL (0.2-1.3); Blood Urea Nitrogen 8 mg/dL (7-17); Calcium 9.6 mg/dL (8.4-10.2); Carbon Dioxide 23 mmol/L (22-30); Chloride 102 mmol/L (98-107); Estimated Glomerular Filt Rate > 60; Glucose 77 mg/dL (65-110); Potassium 3.7 mmol/L (3.4-5.0); Sodium 133 mmol/L (137-145); Total Protein 6.6 g/dL (6.3-8.2); Uric Acid 3.8 mg/dL (2.5-7.5)
[2024-12-23 18:57] LABS: Add Urine Microscopic? YES; Appearance Urine Clear (Clear); Glucose Urine UA Negative (Negative); Leukocyte Esterase Ur Trace LEU/UL (Negative); Nitrate Urine Negative (Negative); Non Pathogenic Casts 0-2; Specific Grav Ur 1.008 (1.001-1.035)
[2024-12-23 19:10] LABS: Total Protein Urine Random 14 mg/dL; Ur Ttl Prot Creatinine Ratio 0.51 mg/mg (0-0.20)
== END 2024-12-23 19:07 | disposition home or self-care (01) ==
LOC: ANHOBOP 17:52 → ANHLDR 17:53
PROVIDERS: PCP Physician Assistant; Visit Provider Obstetrics & Gynecology
DX: O13.9 Gestational [pregnancy-induced] hypertension without significant proteinuria, unspecified trimester (principal); Z3A.00 Weeks of gestation of pregnancy not specified
CPT/HCPCS: 36415; 59025; 80053; 81001; 82570; 84156; 84550; 85025; 99199

== ENCOUNTER 2024-12-25 16:15 | Outpatient (CLI) | payer BC, MEDICAID, SELFPAY ==
[2024-12-25] VITALS (17 sets, daily range): BP systolic 112–130; BP diastolic 63–75; PULSE 80–96; O2SAT 100; BMI 38.5
--- OUTSIDE RECORDS SUMMARY | 2024-12-25 16:21 | XMS_ITS | Patient Health Record ---
Author Organization [facility] Address [address] [facility] [address] [place] [address] Care Team Providers Care Program Rep Name Role Phone Yulisa Reyes Primary Care Provider Devora Diaz Unavailable [phone] Jacinda Richter Unavailable [phone] Allergies Allergen (clinical drug ingredient) Drug/Non Drug [...] Oxazepam (BZO) n 0 - 300 ng/ml 1-rezoxelnum-7,4-kvjtbomx-8, 3-diphe nylpyrrolidine (EDDP) n 0 - 300 ng/ml Methamphetamine (MET) n 0 - 1000 ng/ml Methylenedioxymethamphetamin e (MDMA) n 0 - 500 ng/ml Morphine (MOP 300/ZKY0623) n 0 - 300 ng/ml Methadone (MTD) n 0 - 300 ng/ml Phencyclidine (PCP) n 0 - 25 ng/ml Nortriptyline (TCA) n 0 - 1000 ng/ml Oxycodone n 0 - 300 ng/ml x n 0 - 300 ng/ml DRUG MONITOR, MARIJUANA META B, QN, URINE ([id number]) Reviewed date:03/25/2024 05:43:55 PM Interpretation: Performing Lab:[facility] [id number] [place] [id number] Sachin Sosa, Director - [address] [facility] [place] Notes/Report: FASTING: NO Marijuana Metabolite 17 <5 ng/mL H Marijuana Comments See [facility] Notes, LDT Notes Notes and Comments This [...] analytical performance characteristics have been determined by [facility]. It has not been cleared or approved by the FDA. This assay has been validated pursuant to the CLIA regulations and is used for clinical purposes. Healthcare Providers needing Interpretation assistance, please contact us at [phone] ( ) M-F, 8am to 10pm EST DRUG MONITOR,AMPHETAMINE, W/ DL, QN URINE ([id number]) Reviewed date:03/25/2024 05:44:04 PM Interpretation: Performing Lab:[facility] [id number] [place] [id number] Sachin Sosa Notes/Report: FASTING: NO Amphetamine 2436 <250 ng/mL H Methamphetamine NEGATIVE <250 ng/mL Amphetamines Comments See Amphetamines Notes, LDT Notes UDT Reviewed date:02/26/2024 03:42:37 PM Interpretation: Performing Lab: Notes/Report: THC NEG 0 - 50 ng/ml Cocaine NEG 0 - 300 ng/ml Amphetamine POS 0 - 1000 ng/ml Buprenorphine (BUP) NEG 0 - 10 ng/ml Secobarbital (Bar) NEG 0 - 300 ng/ml Oxazepam (BZO) NEG 0 - 300 ng/ml 9-gfirdhfhpa-6,5-vnxsphfa-0, 3-diphe nylpyrrolidine (EDDP) NEG 0 - 300 ng/ml Methamphetamine (MET) NEG 0 - 1000 ng/ml Methylenedioxymethamphetamin e (MDMA) NEG 0 - 500 ng/ml Morphine (MOP 300/FHT3888) NEG 0 - 300 ng/ml Methadone (MTD) [...] 1 MG Tablet Extended Release 24 Hour TAKE 1 TABLET BY MOUTH TWICE A DAY; Duration: 30 Active Social History Tobacco Use: Social History Observation Description Date Details (start date - stop date) Never Smoker NA - NA Sex Assigned At : Social History Observation Description Sex Assigned At Female Social History Miscellaneous: Social Info Question Answer Notes Advance Care Planning Are you your own decision-maker Yes Do you have Power of Bee Pro[employer] for Health or [facility]? No Tobacco Use: Social Info Question Answer Notes Tobacco Control (Standard) Tobacco use: Nonsmoker Additional Details Category Social Info Options Details Migrated Social History Migrated Social History Alcohol Intake: None 10/09/2022,Tobacco Years: Never smoker 10/09/2022 Problems Problem Type SNOMED Code ICD Code Onset Dates Problem Status W/U Status Risk Notes Problem Severe recurrent major depression without psychotic features (51201370) Major depressive disorder, recurrent severe without psychotic features (F33.2) Active confirmed Problem Generalized anxiety disorder (07813381) MO (generalized anxiety disorder) (F41.1) Active confirmed Problem Mild recurrent major depression (75137545) MDD (major depressive disorder), recurrent episode, mild (F33.0) Active confirmed Problem Attention deficit hyperactivity disorder (245374137) Attention deficit hyperactivity disorder (ADHD), combined type (F90.2) Active confirmed Vital Signs Heart Rate 106 /min 05/22/2024 Height-cm 157.48 cm 05/22/2024 Blood pressure diastolic 77 mm Hg 05/22/2024 Weight-kg 63.96 kg 05/22/2024 Height 62.00 in 05/22/2024 Blood pressure systolic 113 mm Hg 05/22/2024 Weight 141 lbs 05/22/2024 BMI 25.79 kg/m2 05/22/2024 Encounters Encounter Location Date Provider Diagnosis [address] [address] 12/27/2023 Devoraterry Hudson MDD (major depressiv e disorder), recurrent episode, mild F33.0 ; Attention deficit hyperactivity disorder (ADHD), combined type F90.2 and MO (generalized anxiety disorder) F41.[address] [address] 02/26/2024 Devora Tristan MDD (major depressiv e disorder), recurrent episode, mild F33.0 ; Attention deficit hyperactivity disorder (ADHD), combined type F90.2 and MO (generalized anxiety disorder) F41.[address] [address] 05/22/2024 Devora Tristan MDD (major depressiv e disorder), recurrent episode, mild F33.0 ; Attention deficit hyperactivity disorder (ADHD), combined type F90.2 and MO (generalized anxiety disorder) F41.[address] [address] 06/19/2024 Devora Hudson Encounter for screening for depression Z13.31 ; MDD (major depressive disorder), recurrent episode, mild F33.0 ; Attention deficit hyperactivity disorder (ADHD), combined type F90.2 and MO (generalized anxiety disorder) F41.[address] [address] 09/18/2024 Devora Kurtrae Attention deficit hyperactivity disorder (ADHD), combined type F90.2 ; MDD (major depressive disorder), recurrent episode, mild F33.0 ; OM (generalized anxiety disorder) F41.1 ; Encounter for screening for depression Z13.31 and Negative depression screening Z13.[address] [address] 08/21/2024 Devora Hudson [facility] [address] [facility] [address] [place] [address] 01/24/2024 Devoraterry Hudson Attention deficit hyperactivity disorder (ADHD), combined type F90.2 [facility] [address] [facility] [address] [place] [address] 02/19/2024 Jacinda Richter Attention deficit hyperactivity disorder (ADHD), combined type F90.2 [facility] [address] [facility] [address] [place] [address] 03/27/2024 Devoraterry Hudson Attention deficit hyperactivity disorder (ADHD), combined type F90.2 [facility] [address] [facility] [address] [place] [address] 04/23/2024 Devoraterry Hudson Attention deficit hyperactivity disorder (ADHD), combined type F90.2 [place] [address] [address] 08/31/2024 Devora Hudson MDD (major depressiv e disorder), recurrent episode, mild F33.0 and Attention deficit hyperactivity disorder (ADHD), combined type F90.2 [place] [address] [address] 10/08/2024 Devora Hudson [facility] [address] [address] 10/12/2024 Devora Hudson [place] [address] [address] 11/03/2024 Devora Hudson [facility] [address] [address] 11/03/2024 Devora Hudson Assessments Encounter Date Diagnosis (ICD Code) Assessment Notes Treatment Notes Treatment Clinical Notes Section Notes 12/27/2023 MDD (major depressive disorder), recurrent episode, [...] to a new medication List all the [employer] medications that you are considering for augmentation or starting/switchi ng to Medication considered [id number] Citalopram (Celexa), EZH7X52 Escitalopram (Lexapro) and SPE8E46 Sertraline (Zoloft) I'm considering a dosage adjustment [...] non-genetic factors when ordering this test. YES [employer] MTHFR ____x__ Yes NO 06/19/2024 MDD (major [...] (ADHD), combined type (ICD-10 - F90.2) 12/27/2023 MO (generalized anxiety disorder) (ICD-10 - [...] MO (generalized anxiety disorder) (ICD-10 - F41.1) 12/27/2023 Other Increase Adderall to 20mg BID [...] therapeutic effects of psychotropic medications. -Crisis prevention [facility] 9[facility]. 09/18/2024 Other Stable on current medication [...] of psychotropic medications. -Crisis prevention hotline 988. 08/21/2024 Other Electronic Prio r Authorization was requested for buPROPion HCl ER (XL) 300 MG Tablet Extended Release 24 Hour. Provider can order medication once approval received. Plan Of Treatment Pending Test Test Name Order Date Cytochrome P450 2D6 Genotyping 5 Cytochrome P450 2C9 Genotyping 5 Cytochrome P450 2C19 09/18/2024 Next Appt Details Provider Name:Devora Victoria aren, 02/03/2025 09:45:00 AM, [address], [address], [place], [address], Insurance Providers Payer Name Payer Address Payer Phone Subscriber Number Group Number Insured Name Patient Relationship to Insured Coverage Start Date Coverage End Date [facility] [address] [place] [address] [id number] FREDRICK ARIZMENDI Self - patient is the insured [place] [address] [address] [place] [address] [id number] FREDRICK ARIZMENDI Self - patient is the insured Medical (General) History Medical History History ICD Code Problems: Attention deficit hyperactivit y disorder, combined type Chronic post-traumatic stress disorder Generalized anxiety disorder Moderate recurrent major depression , Surgical History Surgery Date(Month/Year) Breast surgery () 04/26/2021
--- OUTSIDE RECORDS SUMMARY | 2024-12-25 16:21 | XMS_ITS | Clinical Summary ---
Author Organization [facility] Address [address] [place] [address] Care Team Providers Care Gearcase Assembler Name Role Phone Unavailable Primary Care Provider Unavailabl e Source Comments [facility],non-owned Affiliates and Associated Physician Practices is amultiple site organization consisting of ambulatory clinics and hospital sitesin [place], [place], [place] and [place]. This disclosure is being madepursuant to the Care Everywhere program and may not contain all information available regarding this patient. Last updated 17.[facility] Allergies No known active allergies Medications [...] Encounters Date Type Department Care Team Description 11/25/2024 10:30 AM CDT Hospital Encounter [address] [address] Rod Mahan MD Discharge Disposition: Home or Self Care 11/25/2024 10:30 AM CDT Hospital Encounter [address] [address] Rod Mahan MD 09/24/2024 Telephone [facility] [address] [place] [address] Arpita Allen Appointment from Last 3 Months Social History Tobacco [...] 10/11/2020 1:24 PM CDT Plan of Treatment Health Maintenance Due Date Last Done Comments HIV SCREENING 08/14/2014 HPV VACCINE (1 - 3-dose series) 08/14/2014 CHLAMYDIA/GONORRHEA SCREENING 2015 HEPATITIS C SCREENING 08/10/2017 DTAP/TDAP/TD VACCINES (1 - Tdap) 08/14/2018 HEPATITIS B VACCINE (1 of 3 - 19+ 3-dose series) 08/14/2018 PAP SMEAR 08/14/2020 DEPRESSION SCREENING 03/25/2024 COVID-19 VACCINE (1 - 2023-2 5 season) 2024 INFLUENZA VACCINE (#1) 2024 3, 01/23/2013 ZOSTER [...] on patient's age to complete this topic Procedures Procedure Name Priority Date/Time Associated Diagnosis Comments ECHO COMPLETE CG Routine 11/25/2024 11:53 AM CDT Family history of congenital heart defect from Last 3 Months Results * ECHO COMPLETE CG (11/25/2024 11:53 AM CDT) MV E pk ileana 19.84 cm/s [facility] CV F UJI PACS MV A pk ileana 30.31 cm/s [facility] CV F UJI PACS Anatomical Region Laterality Modality Ultrasound 11/25/2024 11:2 2 AM CDT Narrative 11/25/2024 2:33 PM CDT Name: Deb Herbert Patient Exam Info Gender: Female Patient Status: O/P : 2000 Admit Date: 11/25/2024 Exam Date/Time: 11/25/2024 11:22 AM Site: [facility] Current Location: CARE EStaffOrdering Provider: Rod Mahan Interpreting Physician: Magali Samayoa MD Editorial Intern: Jorje Cabrera [facility] Study Info Procedure: ECHO COMPLETE CG Indications: Z82.79 - Family history of congenital heart defect Maternal Gestational Status GA by EDC: 32 wks , 1 days EDC: 01/19/2025 Type: Beaulieu Age: 24 yrs Lie: Vertex Summary * The echocardiogram was within normal limits. * Small atrial and ventricular septal defects and persistent ductus arteriosus cannot be excluded as findings. Anatomic Relationships Left sided cardiac apex (levocardia). There is normal visceral-cardiac situs, and normal segmental cardiac anatomical relationship. Systemic Veins There is normal systemic venous return. Pulmonary Veins The visualized pulmonary veins drain normally to the left atrium. Right Atrium The right atrial size is normal. Left Atrium The left atrial size is normal. Atrial Septum Patent foramen ovale with open foramen flap. Color flow is right to left. Right Ventricle The right ventricular cavity size is normal. The right ventricular wall thickness is normal. The right ventricular systolic function is normal. RV Outflow Tract The right ventricular outflow tract is normal. Left Ventricle The left ventricular cavity size is normal. The left ventricular wall thickness is normal. The left ventricular systolic function is normal. Ventricular Septum There is no ventricular septal defect with no shunting. LV Outflow Tract The left ventricular outflow tract is normal. Tricuspid Valve The tricuspid valve is structurally normal. The tricuspid inflow pattern is normal. Tricuspid velocity is within the normal range. There is no tricuspid regurgitation. Mitral Valve The mitral valve is structurally normal. The mitral inflow pattern is normal. Mitral velocity is within the normal range. There is no mitral regurgitation. Aorta aortic arch visualized and is without obstruction by 2D, color flow and Doppler. Pulmonary Arteries The main pulmonary artery is normal, with confluent branch pulmonary arteries. Ductus Arteriosus The antegrade flow velocity and pattern in the ductal arch is normal. A normal ductus arteriosus is appreciated. Doppler Flow in the ductus venosus is normal. The umbilical vein flow pattern is normal. The umbilical artery flow pattern is normal. Hydrops Assessment No pericardial effusion. No ascites present. No pleural effusion(s). Rhythm The rhythm is normal. There is 1:1 AV conduction. Pulmonary Valve The pulmonic valve is normal-sized. The transpulmonic velocity is within normal range. There is no pulmonic regurgitation. Aortic Valve The aortic valve is normal-sized. The transaortic velocity is within normal range. There is no aortic regurgitation. Doppler Measurements (Fetus A) Atrioventricular Valves Name Value Normal Z-Score Percentile Atrioventricular Valves Doppler TV E Peak Velocity 0.2 m/s TV A Peak Velocity 0.3 m/s MV E Peak Velocity 0.2 m/s MV A Peak Velocity 0.3 m/s (Fetus A) Semilunar Valves Name Value Normal Z-Score Percentile Semilunar Valves Doppler PV Peak Velocity. 0.7 m/s AV Peak Velocity () 0.7 m/s (Fetus A) Heart Rate Name Value Normal Z-Score Percentile Heart Rate HR 140 bpm Report Signatures Finalized by Magali Samayoa MD on 11/25/2024 02:33 PM Procedure Note Magali Samayoa MD - 11/25/2024 Name: Deb Herbert Patient Exam Info Gender: Female Patient Status: O/P : 2000 Admit Date: 11/25/2024 Exam Date/Time: 11/25/2024 11:22 AM Site: [facility] Current Location: CARE EStaffOrdering Provider: Rod Mahan Interpreting Physician: Magali Samayoa MD Editorial Intern: Jorje Cabrera [facility] Study Info Procedure: ECHO COMPLETE CG Indications: Z82.79 - Family history of congenital heart defect Maternal Gestational Status GA by EDC: 32 wks , 1 days EDC: 01/19/2025 Type: Beaulieu Age: 24 yrs Lie: Vertex Summary * The echocardiogram was within normal limits. * Small atrial and ventricular septal defects and persistent ductus arteriosus cannot be excluded as findings. Anatomic Relationships Left sided cardiac apex (levocardia). There is normal visceral-cardiac situs, and normal segmental cardiac anatomical relationship. Systemic Veins There is normal systemic venous return. Pulmonary Veins The visualized pulmonary veins drain normally to the left atrium. Right Atrium The right atrial size is normal. Left Atrium The left atrial size is normal. Atrial Septum Patent foramen ovale with open foramen flap. Color flow is right toleft. Right Ventricle The right ventricular cavity size is normal. The right ventricularwall thickness is normal. The right ventricular systolic function is normal. RV Outflow Tract The right ventricular outflow tract is normal. Left Ventricle The left ventricular cavity size is normal. The left ventricular wall thickness is normal. The left ventricular systolic function is normal. Ventricular Septum There is no ventricular septal defect with no shunting. LV Outflow Tract The left ventricular outflow tract is normal. Tricuspid Valve The tricuspid valve is structurally normal. The tricuspid inflow patternis normal. Tricuspid velocity is within the normal range. There is notricuspid regurgitation. Mitral Valve The mitral valve is structurally normal. The mitral inflow pattern is normal. Mitral velocity is within the normal range. There is no mitral regurgitation. Aorta aortic arch visualized and is without obstruction by 2D, colorflow and Doppler. Pulmonary Arteries The main pulmonary artery is normal, with confluent branch pulmonary arteries. Ductus Arteriosus The antegrade flow velocity and pattern in the ductal arch is normal.A normal ductus arteriosus is appreciated. Doppler Flow in the ductus venosus is normal. The umbilical vein flow patternis normal. The umbilical artery flow pattern is normal. Hydrops Assessment No pericardial effusion. No ascites present. No pleural effusion(s). Rhythm The rhythm is normal. There is 1:1 AV conduction. Pulmonary Valve The pulmonic valve is normal-sized. The transpulmonic velocity iswithin normal range. There is no pulmonic regurgitation. Aortic Valve The aortic valve is normal-sized. The transaortic velocity is withinnormal range. There is no aortic regurgitation. Doppler Measurements (Fetus A) Atrioventricular Valves Name Value Normal Z-ScorePercentile Atrioventricular Valves Doppler TV E Peak Velocity 0.2 m/s TV A Peak Velocity 0.3 m/s MV E Peak Velocity 0.2 m/s MV A Peak Velocity 0.3 m/s (Fetus A) Semilunar Valves Name Value Normal Z-ScorePercentile Semilunar Valves Doppler PV Peak Velocity. 0.7 m/s AV Peak Velocity () 0.7 m/s (Fetus A) Heart Rate Name Value Normal Z-ScorePercentile Heart Rate HR 140 bpm Report Signatures Finalized by Magali Samayoa MD on 11/25/2024 02:33 PM us Rod Mahan MD ECHO CUPID Final Result from Last 3 Months Insurance MEDICAID - [place] [facility]
--- OUTSIDE RECORDS SUMMARY | 2024-12-25 16:21 | XMS_ITS | Clinical Summary ---
Author Organization [facility] Address [address] [place] [address] Phone Care Team Providers Care High Energy Forming Equipment Operator Name Role Phone Unavailable Primary Care Provider [...] on file Legal Sex Female 1:07 PM SANDBLAST OPERATOR Gender Identity Not on file Sexual Orientation Not on file Last Filed Vital Signs Vital Sign Reading Time Taken Comments Blood Pressure - - Pulse - - Temperature - - Respiratory Rate - - Oxygen Saturation - - Inhaled Oxygen Concentration - - Weight 59.4 kg (131 lb) 02/25/2024 1:00 PM SANDBLAST OPERATOR Height 157.5 cm (5' 2) 02/25/2024 1:00 PM SANDBLAST OPERATOR Body Mass Index 23.96 02/25/2024 1:00 PM SANDBLAST OPERATOR Plan of Treatment Not on file Insurance MEDICAID [place]
[2024-12-25 16:47] LABS: Hematocrit 35.7 % (37.0-47.0); Hemoglobin 12.1 g/dL (12.0-15.0); Immature Granulocyte Percent A 1.0 % (0-0.5); Lymphocytes Absolute Auto 1.57 K/mm3 (0.9-3.2); Mean Corpuscular HGB Conc 33.9 g/dl (32-36); Mean Corpuscular Hemoglobin 32.2 pg (26-34); Mean Corpuscular Volume 94.9 fl (80-100); Nucleated Red Blood Cells Absolute Auto 0.000 K/mm3 (0.0-0.012); Nucleated Red Blood Cells Perc 0.0 % (0.0-0.2); Platelet Count Result 141 k/mm3 (150-375); Red Blood Count 3.76 M/mm3 (4.2-5.4); White Blood Count 10.7 K/mm3 (4.5-10.0)
[2024-12-25 16:50] LABS: Add Urine Microscopic? YES; Appearance Urine Cloudy (Clear); Glucose Urine UA Negative (Negative); Leukocyte Esterase Ur 1+ LEU/UL (Negative); Nitrate Urine Negative (Negative); Non Pathogenic Casts 0-2; Specific Grav Ur 1.007 (1.001-1.035)
[2024-12-25 16:53] LABS: Total Protein Urine Random 11 mg/dL; Ur Ttl Prot Creatinine Ratio 0.37 mg/mg (0-0.20)
[2024-12-25 16:56] LABS: Alanine Aminotransferase 19 U/L (6-35); Albumin Level 3.4 g/dL (3.5-5.1); Alkaline Phosphatase 87 U/L (38-126); Anion Gap 6 mmol/L (4-12); Aspartate Amino Transferase 20 U/L (14-36); Bilirubin,Total 0.2 mg/dL (0.2-1.3); Blood Urea Nitrogen 7 mg/dL (7-17); Calcium 8.9 mg/dL (8.4-10.2); Carbon Dioxide 23 mmol/L (22-30); Chloride 104 mmol/L (98-107); Estimated Glomerular Filt Rate > 60; Glucose 89 mg/dL (65-110); Potassium 4.1 mmol/L (3.4-5.0); Sodium 133 mmol/L (137-145); Total Protein 6.2 g/dL (6.3-8.2); Uric Acid 3.3 mg/dL (2.5-7.5)
== END 2024-12-25 17:45 | disposition home or self-care (01) ==
LOC: ANHOBOP 16:20 → ANHOBPP 16:21
PROVIDERS: PCP Physician Assistant; Visit Provider Obstetrics & Gynecology
DX: O13.9 Gestational [pregnancy-induced] hypertension without significant proteinuria, unspecified trimester (principal); Z3A.00 Weeks of gestation of pregnancy not specified
CPT/HCPCS: 36415; 59025; 80053; 81001; 82570; 84156; 84550; 85025

== ENCOUNTER 2024-12-28 12:06 | Outpatient (RCR) | payer BC, MEDICAID, SELFPAY ==
--- NOTE | ~2024-12-28 | US_ITS ---
EXAMINATION: US OB BPP wo non-stress DATE: 12/28/2024 14:02 INDICATION: Preeclampsia during third trimester . TECHNIQUE: Real-time pelvic ultrasound was performed. The interpreting radiologist was not present for the study. COMPARISON: None. FINDINGS: There is a single living fetus in vertex presentation. The placenta is posterior and not low-lying. heart rate is 138 beats per minute (bpm). Amniotic fluid volume is subjectively normal with normal vertical pocket measurement of 6.3 cm. Biophysical profile performed by the technologist: breathing (30 sec sustained breathing in 30 minutes): 2 out of 2 movement (3 gross body movements in 30 minutes): 2 out of 2 tone (one episode of gzhcubv-buconlgwa-drdkiks limb movement): 2 out of 2 Amniotic fluid pocket (2 cm): 2 out of 2 Total score: 8 out of 8 IMPRESSION: 1. Single living fetus in vertex presentation with heart rate of 138 bpm. 2. Biophysical profile 8 out of 8. Reviewed, dictated and finalized at location A.
[2024-12-28 14:40] VITALS: BP 107/66; PULSE 106
== END 2025-01-02 09:28 | disposition other institution (70) ==
LOC: ANHOBOP 12:06
PROVIDERS: PCP Physician Assistant; Visit Provider Obstetrics & Gynecology
DX: O14.93 Unspecified pre-eclampsia, third trimester (principal)
CPT/HCPCS: 59025; 76819

== ENCOUNTER 2024-12-30 17:39 | Inpatient (IN) | payer BC, MEDICAID, SELFPAY ==
[2024-12-30] VITALS (13 sets, daily range): BP systolic 96–132; BP diastolic 42–78; PULSE 73–87; TEMP 36.6; BMI 38.5
[2024-12-30] MEDS: DINOPROSTONE 10 MG VAG INSERT VAGINAL (18:55)
[2024-12-30 19:05] LABS: Hematocrit 33.5 % (37.0-47.0); Hemoglobin 11.2 g/dL (12.0-15.0); Immature Granulocyte Percent A 1.0 % (0-0.5); Lymphocytes Absolute Auto 1.75 K/mm3 (0.9-3.2); Mean Corpuscular HGB Conc 33.4 g/dl (32-36); Mean Corpuscular Hemoglobin 31.6 pg (26-34); Mean Corpuscular Volume 94.6 fl (80-100); Nucleated Red Blood Cells Absolute Auto 0.000 K/mm3 (0.0-0.012); Nucleated Red Blood Cells Perc 0.0 % (0.0-0.2); Platelet Count Result 136 k/mm3 (150-375); Red Blood Count 3.54 M/mm3 (4.2-5.4); White Blood Count 10.6 K/mm3 (4.5-10.0)
--- NOTE | 2024-12-30 19:13 | LDADM ---
This patient, Deb Herbert, was admitted to Labor/Delivery/Recovery 102 on 12/30/24 at 17:39. Plans for labor, pain management and were discussed with patient. Patient/family oriented to hospital policies and general routines including ID bracelet, bed and alarms, visiting hours, pain management, procedures, bathroom and other care routines, personal items, smoking policy, room service/diet and guest tray routines, security routines, and visiting hours. Patient/Family are encouraged to report perceived risks to care and to ask questions if they do not understand what they are told or what they should do. See OBIX for further documentation.
[2024-12-30 20:24] LABS: Syphilis IgG/IgM Antibody Non-Reactive (Nonreactive)
[2024-12-30] MEDS: AMPICILLIN SODIUM 2 GM in SODIUM CHLORIDE 0.9% IV 100 ML 200 ML IVPB (20:25)
[2024-12-30] MEDS: LACTATED RINGERS 1,000 ML 125 ML IV CONT (20:25)
[2024-12-31] VITALS (174 sets, daily range): BP systolic 73–141; BP diastolic 36–99; PULSE 62–146; RESP 16–18; TEMP 36.3–36.8; O2SAT 95–100
[2024-12-31] MEDS: AMPICILLIN SODIUM 1 GM in SODIUM CHLORIDE 0.9% IV 50 ML 100 ML IVPB ×4 (00:31→11:29)
[2024-12-31] MEDS: OXYTOCIN 30 UNITS/NS 500 ML 30 UNITS/500 ML BAG IV CONT (07:30)
[2024-12-31] MEDS: LACTATED RINGERS 1,000 ML 125 ML IV CONT (07:31)
--- NOTE | 2024-12-31 08:01 | PHAR ---
Home med verified by pharmacy - Dextroamphetamine-amphetamine salts 20mg tablet: [place] round tablet, wendyint Jahaira 401
[2024-12-31] MEDS: DEXTROAMPHETAMINE AMPHETAMINE 20 MG 20 EACH PO (08:14)
--- NOTE | 2024-12-31 10:08 | WPDANESEPPF ---
Anes - Initial Pre Proc Eval Procedure: labor epidural Date/Time: 12/31/24 10:08 Surgeon: Rod Mahan MD Pre Op Diagnosis: labor pain Pre Op Diagnosis: IOL Patient Data Age: 24 Gender: F Height: 1.57 m Weight: 95.5 kg Last Vital Signs Temp 36.6 C 12/31/24 08:15 Pulse 91 12/31/24 10:07 BP 125/72 12/31/24 10:07 Pulse Ox 100 12/31/24 10:05 O2 Del Method Room Air 12/30/24 19:12 Allergies Allergy/AdvReac Type Severity Reaction Status Date / Time hydroxyzine Allergy Intermediate Itching Verified 12/28/24 14:13 poison preethi extract Allergy Hives Verified 12/28/24 14:13 Home Medications ?Medication ?Instructions ?Recorded ?Confirmed ?Type vit 24-iron amino acid 1 tablet PO DAILY 07/25/23 12/30/24 History chelat-folic acid 30 mg-975 mcg tablet bupropion HCl 150 mg 24 hr tablet, 150 mg PO QAM 11/09/24 12/30/24 History extended release (Wellbutrin XL) dextroamphetamine-amphetamine 20 20 mg PO BID #60 tabs 12/07/24 12/30/24 Rx mg tablet (Adderall) guanfacine 1 mg tablet,extended 1 mg PO BID 12/25/24 12/30/24 History release 24 hr Laboratory Tests 12/30/24 18:27 WBC 10.6 H K/mm3 (4.5-10.0) RBC 3.54 L M/mm3 (4.2-5.4) Hgb 11.2 L g/dL (12.0-15.0) Hct 33.5 L % (37.0-47.0) MCV 94.6 fl (80-100) MCH 31.6 pg (26-34) MCHC 33.4 g/dl (32-36) RDW 13.5 % (11.5-14.5) Plt Count 136 L k/mm3 (150-375) MPV 10.6 H fl (7.4-10.4) Immature Gran % (Auto) 1.0 H % (0-0.5) Neut % (Auto) 74.0 H % (45.5-73.1) Lymph % (Auto) 16.5 L % (18.3-44.2) [place] % (Auto) 7.7 % (2.6-8.5) Eos % (Auto) 0.6 % (0-4.4) Baso % (Auto) 0.2 % (0.2-1.2) Lymph # (Auto) 1.75 K/mm3 (0.9-3.2) [place] # (Auto) 0.8 H K/mm3 (0.1-0.6) Eos # (Auto) 0.1 K/mm3 (0-0.3) Baso # (Auto) 0.0 K/mm3 (0.0-0.1) Abs Immat Gran (auto) 0.11 H K/mm3 (0.00-0.031) Absolute Neuts (auto) 7.9 H K/mm3 (1.3-6.7) Absolute Nucleated RBC 0.000 K/mm3 (0.0-0.012) Nucleated RBC % 0.0 % (0.0-0.2) Syphilis IgG/IgM Ab Non-reactive (Nonreactive) Blood Type O Positive Antibody Screen Negative Patient hx anesthesia problems: none Family hx anesthesia problems: none Results Review: All pre-operative results and documents have been reviewed as part of the pre-operative evaluation. [facility] Past Medical History Medical History Vaginal discharge Spondylosis lower lumbar Mastitis Breast implant rupture Encounter for insertion of mirena IUD Morbid obesity Irregular periods Pre-eclampsia added to pre-existing hypertension Anxiety Vaginal discharge Encounter for screening examination for sexually transmitted disease Suppression of menstruation Frequent headaches Chlamydia (12/17/16) Hypoglycemia Surgical History Surgical History H/O breast augmentation (05/02/21) History of repair of hiatal hernia (~2001) History of oral surgery (~2012) Family History Family History Grandparent Malignant tumor of urinary bladder maternal grandmother Mother Malignant tumor of cervix Father Hypertension Social History Social History Smoking status: Never smoker Second hand tobacco smoke exposure: No Alcohol intake: never Substance use: never Substance use type: marijuana Other substance usage details: for stress Last use: unknown-within last 30 days Do You Feel Safe in your Home?: Yes Lack of Transportation: No Lack of Food: Never True Current Housing: I Have Housing Concerned About Future Housing: No Difficulty Paying Gas/Electric Bills: No Difficulty Paying for Meds: No Currently Unemployed: No Education: High School Diploma/GED Difficulty w/ Childcare or Family Care: No Living arrangements: other Additional living arrangements comments: single Occupation/Education: other 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 Gender identity (if verbalized by the patient): Female Sexual Orientation (if Verbalized by the Patient): Straight or Heterosexual Spiritual care concerns: No Anes - Eval Final PreProcedure Day of Procedure 12/31/24 10:08 Patient weight: obese Heart: regular rate and rhythm Lungs: clear to auscultation Airway: Mallampati scale class II Neurological: alert and oriented Last oral intake: >/= 8 hours ASA classification: II Emergent: no Anesthetic plan: proceed Anesthesia type and monitoring: regional epidural and standard monitoring Results Review: All pre-operative results and documents have been reviewed as part of the pre-operative evaluation. Informed Consent: The patient's anesthetic plan and its attendant risks and benefits were discussed with the patient/family/POA. Questions were solicited and answers provided to the satisfaction of the patient/family/POA.
[2024-12-31] MEDS: ONDANSETRON INJ 4 MG/2 ML VIAL IV PUSH (11:09)
[2024-12-31] MEDS: ACETAMINOPHEN 500 MG TABLET 1000 MG PO (11:28)
[2024-12-31] MEDS: FAMOTIDINE 20 MG/2 ML VIAL IV PUSH (13:36)
--- NOTE | 2024-12-31 15:51 | WPDHPUPDATE1 ---
History and Physical Update Update Date/Time: 12/31/24 15:51 History and Physical has been reviewed, including an updated exam of the patient. There are NO changes in the patient's condition. Risks, benefits, and alternatives have been discussed and questions answered. Patient agrees to proceed with procedure.
--- NOTE | 2024-12-31 15:51 | PM.OBPRVD ---
OB - Vaginal Delivery Note Procedure Delivery date: 12/31/24 Events: Gestational Hypertension Induction method: Per Cervidil Protocol Delivery augmentation: Rupture of Membranes and Pitocin Delivery monitor: External FHT and Internal Uterine Route of delivery: Episiotomy description: None Laceration Description: Periurethral Specimen: Yes Quantitative Blood Loss (ml): 300 Anesthesia type: Epidural Disposition: Floor Complications: No immediate complications Narrative: Patient prepped and draped in the usual manner. Maternal expulsive efforts readily delivered vertex, rest the baby without difficulty. Cord was clamped and cut and placenta delivered spontaneously. Cervix vagina vulva were inspected with small periurethral laceration noted, not bleeding. Uterus was well contracted and procedure was considered terminated with immediate postoperative condition of mother baby both excellent. Baby Gestational Age by Date: 38 Infant gender: Female presentation: vertex Placenta delivery description: Spontaneous Cord Vessel Description: 3 Vessels
[2024-12-31] MEDS: OXYTOCIN 30 UNITS/NS 500 ML 30 UNITS/500 ML BAG 125 UNITS IV CONT (16:05)
--- NOTE | 2024-12-31 16:05 | S_PTH ---
PATIENT: Deb Herbert LOC: [facility] U#:[id number] AGE/SX: 24/F ROOM: 291 RE12/30/[address]: Rod Mahan MD : 2000 BED: 00 DIS: 01/01/2025 SPEC #: [id number] RECD: 01/01/25 07:08 STATUS: LISA REQ #: [id number] MARYCHUY: 12/31/24 16:[address]: Rod Mahna DEPT: [facility] Surgical RECD BY: Abeba Pollard ENTERED: 01/01/25 07:09 SP TYPE: Surgical OTHR DR: Yulisa Kennedy, PA-C Tissues: A - Placenta Procedures: Hematoxylin and Eosin Stain Gross and Microscopic Level 5
[2024-12-31] MEDS: WITCH HAZEL 40 PADS 1 PAD TOPICAL (19:16)
[2024-12-31] MEDS: BENZOCAINE 20% AER SPR (*SP) 56 GM CAN 1 SPRAY TOPICAL (19:16)
--- NOTE | 2024-12-31 19:29 | OBPPTRN ---
Patient transferred to post room #291 via wheelchair. Support person-spouse- Jax present. Oriented to unit, room, information board, rooming in, admission packet and security measures. Patient verbalizes understanding.
[2024-12-31] MEDS: ACETAMINOPHEN 325 MG TABLET 650 MG PO (19:35)
[2024-12-31] MEDS: IBUPROFEN 600 MG TABLET PO (19:35)
[2025-01-01] MEDS: IBUPROFEN 600 MG TABLET PO ×3 (04:05→18:01)
[2025-01-01] MEDS: ACETAMINOPHEN 325 MG TABLET 650 MG PO ×3 (04:05→18:02)
[2025-01-01 04:30] VITALS: BP 103/66; PULSE 66; RESP 18; TEMP 36.8; O2SAT 99
[2025-01-01 04:42] LABS: Hematocrit 32.6 % (37.0-47.0); Hemoglobin 10.7 g/dL (12.0-15.0)
[2025-01-01 08:10] VITALS: BP 111/60; PULSE 74; RESP 16; TEMP 37.3; O2SAT 99
--- NOTE | 2025-01-01 08:17 | PM.OBDSVD ---
DS: Admitting Diagnosis Discharge Date 01/01/2025 Admitting Diagnosis DS: Discharge Diagnosis Discharge Diagnosis (1) , delivered: Code(s): O80 - Encounter for full-term uncomplicated delivery Status: Acute OB - DS: Summary OB Procedures : None OB Procedures Intrapartum: Spontaneous Vag Delivery OB Procedures: : None Peripartum Data Laceration Description: Periurethral Episiotomy description: None Time Spent with Patient Time attestation: Total time spent providing and/or coordinating discharge services: DS: Data Data Completed and Pending Pending studies at discharge: Pending at discharge 12/31/24 16:05 Surgical [PTH] Routine Labs on day of discharge: Labs from last 24 hours 01/01/25 04:19 Hgb 10.7 L Hct 32.6 L Discharge Plan Discharge Discharging Clinician: Rod Mahan Patient Disposition: Home Activity: as tolerated and pelvic rest Diet: as tolerated Patient Instructions: Antibiotic Form Patient Language: Thai Stand Alone Forms: General Discharge Information Follow-up/Referrals: Rod Mahan MD [Physician, LENS FABRICATING MACHINE TENDER] - 4 Weeks Discharge Medications: New ibuprofen 600 mg Tablet 600 mg PO Q6H PRN (Reason: Cramping) Qty: 30 0RF Continued bupropion HCl [Wellbutrin XL] 150 mg tablet extended release 24 hr 150 mg PO QAM dextroamphetamine-amphetamine [Adderall] 20 mg tablet 20 mg PO BID Qty: 60 0RF PNV no.58-[id number] acid 30-975 mg-mcg Tablet 1 tablet PO DAILY guanfacine 1 mg tablet extended release 24 hr 1 mg PO BID Date of admission: 12/30/24 17:39 Primary Care Provider: KhaiYulisa Admitting Provider: Rod Mahan Attending physician on admission: Rod Mahan Condition: Stable
[2025-01-01] MEDS: HOME MEDICATION 20 EACH PO (09:12)
[2025-01-01] MEDS: buPROPion HCL XL (24 HR) 150 MG TABCR PO (09:12)
[2025-01-01] MEDS: [UNRECOGNIZED DRUG - OTHER] PO (09:12)
[2025-01-01] MEDS: GUANFACINE 1 MG PO (09:12)
--- NOTE | 2025-01-01 11:35 | PC.NURSE ---
Mother verbalizes she is able to independently latch with appropriate positioning and alignment. She denies any nipple discomfort and is responsively . She has a small scab on her right nipple that is not painful and has not gotten worse. Reviewed feeding at least 8 times every 24 hours and feeding on demand. Patient successfully breastfed both of her other children. Infant is currently meeting outcomes for weight, output, jaundice, blood sugar and feeding frequencies of 8-12 times in 24 hours. Mother declines any additional assistance or education at this time. Mother is encouraged to call for assistance if her doesn?t latch, pain with latching, questions or concerns. Mother voiced understanding of information shared along with the mom/baby guide for an additional resource. Reported to the Primary RN.
[2025-01-01 11:55] VITALS: BP 126/67; PULSE 75; RESP 16; TEMP 36.8; O2SAT 99
--- NOTE | 2025-01-01 14:45 | PC.NURSE ---
Patient called out for a latch check. She feels like baby will hold the nipple in her mouth but doesn't suck. Baby was repositioned slightly for better alignment and mom was shown how to observe for ear/shoulder/hip all in a line and tummy to tummy with mom. Baby's head was supported to come away from the breast and wait for a big open mouth before quickly latching. Mom says there is some pinching and we observed that baby's lower lip was rolled in. Mom was shown how to pull on baby's chin to help flange out the lower lip. She was able to tell a difference in the comfort of the latch after the adjustments we made. Baby is suckling for regular bursts and pauses with swallows noted. Baby had a large wet diaper during the feeding. Mom is feeling more confident and knows how to look for proper positioning when feeding. Primary RN updated.
--- NOTE | 2025-01-01 14:47 | WPDANLDPN2 ---
Anes-Prog Note L&D Date/Time: 01/01/25 14:47 Comfortable throughout: labor and delivery Neuraxial method: epidural Epidural/Spinal procedure site: clean & non-tender Neuro status: Neuro function grossly intact. Vital Signs: Last Vital Signs Temp 36.8 C 01/01/25 11:55 Pulse 75 01/01/25 11:55 Resp 16 01/01/25 11:55 BP 126/67 01/01/25 11:55 Pulse Ox 99 01/01/25 11:55 O2 Del Method Room Air 01/01/25 07:20 Pain score (VAS): 0 I/O: Intake & Output 12/31/24 01/01/25 01/01/25 23:59 07:59 15:59 Intake Total 500 0 Output Total 190 1300 1100 Balance 310 1300 -1100 Patient feedback: Patient satisfied with anesthetic care.
[2025-01-01 16:45] VITALS: BP 119/79; PULSE 71
--- NOTE | 2025-01-01 17:45 | PC.NURSE ---
Patient is being discharged and requests an insurance pump. Medela Pump in [employer] provided. Patient has pumped before and has the user manual for reference if needed. Reviewed outpatient Services and referring to the mom/baby guide for additional information. If patient has any concerns about infant output she will supplement with pumped milk or formula and notify her quality improvement analyst. Reviewed normal sleepiness versus lethargy and waking to feed if needed. Encouraged skin to skin before if infant needs help waking up. Mom states that she feels confident with feeding and caring for baby at home. She is a little anxious about baby's weight loss and we discussed that she will be following up here soon and we will be checking weight and jaundice levels. If she has any concerns about baby when at home she knows that she can contact her quality improvement analyst at any time. Patient is instructed to feed at least 8 times every 24 hours. She denies having any other questions or concerns at this time. Primary RN updated.
[2025-01-04 09:48] VITALS: BP 124/81; PULSE 89; RESP 18; TEMP 37.1; O2SAT 100
== END 2025-01-01 19:05 | disposition home or self-care (01) | DRG 807 ==
LOC: ANHLDR 17:46 → ANHOB2 12-31 19:35
PROVIDERS: Admitting Provider Obstetrics & Gynecology; PCP Physician Assistant; Visit Provider Obstetrics & Gynecology
DX: O14.94 Unspecified pre-eclampsia, complicating childbirth (principal); Z37.0 Single live birth; Z3A.37 37 weeks gestation of pregnancy; O99.824 Streptococcus B carrier state complicating childbirth; O71.82 Other specified trauma to perineum and vulva
CPT/HCPCS: 36415; 85014; 85018; 85025; 86593; 86850; 86900; 86901; 88307; A9270; J0290; J2405; J2590; J2795; J7120